=== PATIENT | female | born 1980 | race Caucasian/White ===

== ENCOUNTER 2023-12-04 10:24 | Inpatient (IN) ==
--- NOTE | 2023-12-04 10:47 | Emergency Department Note ---
Impression & Plan Thrombocytopenia ADMIT ED Provider Note HPI: History obtained from patient. The patient is a 43-year-old female who presents the emergency department with chief complaint of abnormal outpatient lab work/thrombocytopenia. Patient states over the past week she has noticed some bruises to her arms and abdomen, she states she has had some bleeding from her gums when she brushes her teeth. Patient had some outpatient lab work performed because of this issue and was noted to have a platelet count of less than 10,000 and therefore was referred to the ED for further management. Patient denies any hematemesis, denies any blood per rectum, denies any other obvious hemorrhage aside from the contusions and bleeding from her gums. On arrival here to the ED the patient is mildly hypertensive but otherwise hemodynamically stable, she is in no acute distress on my initial assessment, she is afebrile, saturating well on room air. ROS: - Per HPI Differential Diagnosis: ITP, TTP, HUS, leukemia, amongst other potential pathologies. *Outpatient medications and allergy history reviewed. PE: General: Alert HEENT: Normocephalic, trachea midline, small ulceration to the posterior pharynx without active bleeding, small ulceration to the left anterior gumline superiorly without active bleeding Eyes: Extraocular eye movement is intact, no scleral erythema Pulmonary: Clear to auscultation bilaterally, no wheezing Cardio: Regular rate and rhythm GI: Abdomen is soft to palpation : No suprapubic tenderness MSK: No evidence of trauma or malformation of the extremities, no edema Skin: Multiple small contusions to the bilateral upper extremities and lower extremities as well as over the abdomen, no petechiae no evidence of rash Neuro: Alert, no focal deficits Psychiatric: Cooperative INDEPENDENT INTERPRETATIONS: bus driver/monitor: (As interpreted by myself): - An order was placed for continuous cardiac monitoring - Patient was noted to be in sinus rhythm with a rate of 90 Interventions provided in ED: -IVIG, IV Decadron Medical Decision Making: IV was established and lab work obtained, patient was placed on traffic monitor specialist. Lab work shows no leukocytosis, hemoglobin is stable at 11.2 (patient states she has a history of mild anemia that happens with her menstrual cycles), platelet count is markedly reduced at 2, lab work otherwise does not show any evidence of acute kidney injury, bilirubin is normal, lipase is normal, testing is negative. Urinalysis shows 2+ blood without evidence of infection. CT imaging of the head was obtained as the patient later complained of a mild headache, this does not show any evidence of any acute intracranial process. Patient denies any abdominal pain, I do not feel that CT imaging of the abdomen pelvis is indicated at this time. I discussed the patient's presentation with the on-call production cell leader, Dr. Mcintosh, who does recommend administration of IV steroids and IVIG over concern for possible ITP. Case was then discussed with the on-call hospitalist for [facility] in [place], Dr. Franklin, and the patient was admitted to the inpatient service for further management. Patient was in agreement to this plan and she was admitted in stable condition. Consultants/Discussions held with other healthcare providers: -Hospitalist, Dr. Franklin -Counterintelligence Analyst, Dr. Mcintosh Disposition discussion held by myself with: -Patient Diagnosis: 1. Thrombocytopenia, acute, severe 2. Body contusions, acute, atraumatic 3. Ulcerations of the oral mucosa in the setting of thrombocytopenia, acute 4. Headache, acute, non-intractable 5. Hematuria, acute, mild Disposition: Admission Chao Gomez DO Emergency Medicine Past Med/Surg History Medical History (Updated 12/04/23 @ 14:59 by Chao Gomez DO) Depression PTSD (post-traumatic stress disorder) Rheumatoid arthritis GERD (gastroesophageal reflux disease) Prediabetes HTN (hypertension) Surgical History (Updated 12/04/23 @ 13:26 by Yessy Rodriguez PA-C) History of loop electrosurgical excision procedure (LEEP) History of hysteroscopy Family History Other Breast cancer Heart disease Social History (Updated 12/04/23 @ 13:27 by Yessy Rodriguez PA-C) Smoking Status: Never smoker Hx Alcohol Use: No Hx Substance Use: No Feels Safe at Home: Yes Allergies Allergies Allergy/AdvReac Type Severity Reaction Status Date / Time No Known Allergies Allergy Unverified 12/04/23 10:48 Home Meds Home Medications Medication Instructions Recorded Confirmed albuterol sulfate 90 mcg/actuation 2 puff inhalation Q4H PRN sob 12/04/23 12/04/23 aerosol inhaler (ProAir HFA) duloxetine 60 mg capsule,delayed 60 mg PO DAILY 12/04/23 12/04/23 release lisinopril 30 mg tablet 30 mg PO DAILY 12/04/23 12/04/23 norethindrone (contraceptive) 0.35 0.35 mg PO DAILY 12/04/23 12/04/23 mg tablet omeprazole 40 mg capsule,delayed 40 mg PO DAILY 12/04/23 12/04/23 release prednisone 5 mg tablet 5 mg PO DAILY 12/04/23 12/04/23 Results & Data (ED) Vital Signs Vital Signs - 24 hr 12/04/23 10:27 12/04/23 12:50 12/04/23 14:31 Temperature 36.6 C Temperature Source Temporal Artery Scan Pulse Rate 90 Pulse Rate [Left Finger] 77 89 Respiratory Rate 20 20 20 Respiratory Effort / Characteristics Non-Labored Respiratory Depth Normal Blood Pressure 185/96 H Blood Pressure [Right Arm] 169/87 H 166/99 H Blood Pressure Mean 125 Blood Pressure Mean [Right Arm] 114 121 Pulse Oximetry 98 98 98 Oxygen Delivery Method Room Air Room Air Sepsis Recent Fever Within 48 Hours No Sepsis New/Unexplained Change in Mental Status No Sepsis Action Taken by Nursing No Action Required Laboratory Data 12/04/23 11:00 12/04/23 11:00 Lab Results 12/04/23 12/04/23 Range/Units 11:00 12:00 WBC 8.71 (4.8-10.8) K/ul RBC 4.11 L (4.20-5.40) M/uL Hgb 11.2 L (12.0-16.0) g/dl Hct 34.9 L (37.0-47.0) % MCV 84.9 (80.0-100.0) fL MCH 27.3 (25.0-34.0) pg MCHC 32.1 (32.0-36.0) g/dL RDW Std Deviation 44.9 (36.4-46.3) fL RDW Coeff of Arnold 14.6 H (11.5-14.5) % Plt Count 2 L* (130-400) K/uL Immature Gran % (Auto) 0.9 % Neut % (Auto) 76.9 % Lymph % (Auto) 17.3 % [place] % (Auto) 3.8 % Eos % (Auto) 0.3 % Baso % (Auto) 0.8 % Neut # (Auto) 6.69 H (1.40-6.50) K/uL Lymph # (Auto) 1.51 (1.20-3.40) K/uL [place] # (Auto) 0.33 (0.11-0.59) K/uL Eos # (Auto) 0.03 (0.00-0.50) K/uL Baso # (Auto) 0.07 (0.00-0.20) K/uL Immature Gran # (Auto) 0.08 (0.01-0.20) K/uL Platelet Estimate Signific. Decreased L (Normal) PT 10.5 (9.0-12.0) Seconds INR 1.0 (0.9-1.1) Sodium 138 (136-145) mmol/L Potassium 3.7 (3.5-5.1) mmol/L Chloride 105 (98-107) mmol/L Carbon Dioxide 26 (21-32) mmol/L Anion Gap 7 (3-11) BUN 13 (6-23) mg/dl Creatinine 0.90 (0.6-1.2) mg/dl Est Cr Clr Drug Dosing 95.2 ml/min Est GFR ( Amer) 91.4 ml/min Est GFR (Non-Af Amer) 78.9 ml/min BUN/Creatinine Ratio 14.4 (10-20) Glucose 134 H (70-99(Fasting)) mg/dl Calcium 9.1 (8.6-10.3) mg/dl Total Bilirubin 0.4 (0.2-1.0) mg/dl AST 20 (13-39) U/L ALT 25 (7-52) U/L Alkaline Phosphatase 96 (34-104) U/L Total Protein 6.9 (6.0-8.3) gm/dl Albumin 4.2 (3.4-5.0) gm/dl Globulin 2.7 (2.5-4.0) gm/dl Albumin/Globulin Ratio 1.6 (0.9-2) Lipase 69 (11-82) U/L HCG, Qual Negative (Negative) Urine Color Yellow Urine Appearance Clear (Clear) Urine pH 7.0 (4.5-7.5) Ur Specific [place] 1.007 (1.000-1.030) Urine Protein Negative (Negative) Urine Glucose (UA) Negative (Negative) Urine Ketones Negative (Negative) Urine Blood 2+ H (Negative) Urine Nitrite Negative (Negative) Urine Bilirubin Negative (Negative) Urine Urobilinogen Negative (Negative) Ur Leukocyte Esterase Negative (Negative) Urine WBC (Auto) 0-5 (0-5) /hpf Urine RBC (Auto) 6-10 H (0-2) /hpf U Hyaline Cast (Auto) 0-2 (0-2) /lpf U Epithel Cells (Auto) 0-2 (0-2) /hpf Urine Bacteria (Auto) None Seen (None Seen) Administered Medications Immune Globulin (Octagam 10%) 200 mls @ 61.86 mls/hr IV TODAY@1400,1600,1800,2000,2200 TREVOR; Protocol Stop: 12/05/23 01:14 Last Admin: 12/04/23 14:00 Dose: 1 mg/kg/min, 61.9 mls/hr Documented By: GERARDO Discontinued Medications Acetaminophen (Acetaminophen 325 Mg Tab) 650 mg PO NOW STA Stop: 12/04/23 12:58 Last Admin: 12/04/23 13:14 Dose: 650 mg Documented By: GERARDO Dexamethasone Sodium Phosphate (DexamethasonePf 10 Mg/Ml Vial) 40 mg IV NOW ONE Stop: 12/04/23 12:11 Last Admin: 12/04/23 12:53 Dose: 40 mg Documented By: GERARDO Sodium Chloride (Nss) 500 mls @ 999 mls/hr IV .Q31M STA Stop: 12/04/23 11:07 Last Admin: 12/04/23 10:57 Dose: 999 mls/hr Documented By: GERARDO Imaging Data Radiologist's Impression: Head CT 12/04/23 12:[address] DOSE: 547.75 mGy.cm HISTORY: Headache, severe thrombocytopenia TECHNIQUE: Multiaxial CT images of the head were performed without the use of intravenous contrast. Automated exposure control was utilized for this study. A dose lowering technique was utilized adhering to the principles of ALARA. Comparison: None. Findings: The paranasal sinuses and mastoid air cells are clear. The calvarium and skull base are intact. The ventricles and sulci are within normal limits. There is no mass, hematoma, midline shift, or acute infarct. Impression: No acute intracranial abnormality. ACT 112: Negative or not required by law. Electronically signed by: Sherif Ge M.D. 12/04/2023 1:52 PM Discharge Plan Visit Data Chief Complaint: Referred by Doctor Stated Complaint: REF BY DOC, ABN LABS ED Provider: Chao Gomez Discharge Problem: Thrombocytopenia Forms Stand Alone Forms: My [facility] Prescriptions Prescriptions: No Action prednisone 5 mg Tablet 5 mg PO DAILY Rx Instructions: end of taper, 1 wk of 5 mg omeprazole 40 mg Capsule,Delayed Release(Dr/Ec) 40 mg PO DAILY lisinopril 30 mg Tablet 30 mg PO DAILY albuterol sulfate [ProAir HFA] 90 mcg/actuation Hfa Aerosol Inhaler 2 puff INHALATION Q4H PRN (Reason: sob) norethindrone (contraceptive) [Ortho Micronor] 0.35 mg Tablet 0.35 mg PO DAILY duloxetine 60 mg Capsule,Delayed Release(Dr/Ec) 60 mg PO DAILY Referrals Referrals: PCP,NO [Physician] -
[2023-12-04] MEDS: SODIUM CHLORIDE 0.9% 500 ML IV STA (10:57)
[2023-12-04 11:30] LABS: Albumin Globulin Ratio 1.6 (0.9-2); Albumin Level 4.2 gm/dl (3.4-5.0); BUN Creatinine Ratio 14.4 (10-20); Bilirubin,Total 0.4 mg/dl (0.2-1.0); Calcium 9.1 mg/dl (8.6-10.3); Creatinine Clr Calc Pharmacy 95.2 ml/min; Est GFR (African American) 91.4 ml/min; Est GFR (Non-African American) 78.9 ml/min; Globulin 2.7 gm/dl (2.5-4.0); Potassium 3.7 mmol/L (3.5-5.1); Total Protein 6.9 gm/dl (6.0-8.3)
[2023-12-04 11:37] LABS: Prothrombin Time 10.5 Seconds (9.0-12.0)
[2023-12-04 12:08] LABS: Hematocrit (blood only) 34.9 % (37.0-47.0); Hemoglobin 11.2 g/dl (12.0-16.0); Mean Corpuscular Hemoglobin 27.3 pg (25.0-34.0); Mean Corpuscular Hgb Conc 32.1 g/dL (32.0-36.0); Mean Corpuscular Volume 84.9 fL (80.0-100.0); Platelet Count 2 K/uL (130-400); RDW Coefficient of Variation 14.6 % (11.5-14.5); RDW Standard Deviation 44.9 fL (36.4-46.3); Red Blood Count 4.11 M/uL (4.20-5.40); White Blood Count 8.71 K/ul (4.8-10.8)
[2023-12-04 12:09] LABS: Basophils # (auto) 0.07 K/uL (0.00-0.20); Basophils % (auto) 0.8 %; Eosinophils # (auto) 0.03 K/uL (0.00-0.50); Eosinophils % (auto) 0.3 %; Immature Granulocytes # (auto) 0.08 K/uL (0.01-0.20); Immature Granulocytes % (auto) 0.9 %; Lymphocytes # (auto) 1.51 K/uL (1.20-3.40); Lymphocytes % (auto) 17.3 %; Monocytes # (auto) 0.33 K/uL (0.11-0.59); Monocytes % (auto) 3.8 %; Neutrophils # (auto) 6.69 K/uL (1.40-6.50); Neutrophils % (auto) 76.9 %; Platelet Estimate Signific. Decreased (Normal)
[2023-12-04] MEDS ORDERED: IMMUNE GLOBULIN (HUMAN) SOLN IV ONE (12:10)
[2023-12-04 12:11] LABS: Pregnancy Test, Serum Negative (Negative)
[2023-12-04 12:35] LABS: Appearance Urine Clear (Clear); Bacteria Urine Automated None Seen (None Seen); Bilirubin Urine Negative (Negative); Blood Urine 2+ (Negative); Cast Urine Automated 0-2 /lpf (0-2); Color Urine Yellow; Epithelial Cell Urine Auto 0-2 /hpf (0-2); Glucose Urine UA Negative (Negative); Ketones Urine Negative (Negative); Leukocyte Esterase Urine Negative (Negative); Nitrite Urine Negative (Negative); Protein Urine Negative (Negative); Specific Gravity Urine 1.007 (1.000-1.030); Urobilinogen Urine Negative (Negative); WBC Urine Automated 0-5 /hpf (0-5)
[2023-12-04] MEDS: dexAMETHasone**PF** 10 MG/ML VIAL IV ONE (12:53)
[2023-12-04] MEDS: ACETAMINOPHEN 325 MG TAB PO STA (13:14)
--- NOTE | 2023-12-04 13:27 | History & Physical Report ---
Date of Service December 04, 2023 Assessment & Plan (1) Severe thrombocytopenia: Plan: This is a 43yo F with a PMH of Rheumatoid arthritis, HTN, depression and other medical problems listed below and was found to have severe thrombocytopenia. Spontaneous bruising x 1 week without trauma Outpatient labs today that was significant for Hgb 11.5 (previously 12.5 in Sep 2023), platelets <10 (previously 311 on 09/20/23), absolute retic count elevated at 107, retic % elevated at 2.53 CBC here with hgb 11.2, hct 34.9, platelet count of 2 Denies any history of bleeding or clotting issues, concern for ITP given autoimmune history with RA as below ED provider discussed with heme/onc, who recommended Dexamethasone, Immunoglobulin x 5 doses today, okay to care for at [facility] Fall precautions. Discussed importance of safety with patient given bleeding risk Monitor blood work closely (2) Rheumatoid arthritis: Plan: Follows with [facility] rheum, has been on monthlong taper of prednisone down to the last few days at 5mg - hold while receiving IV dexamethasone as above Due to start Rinvoq but has not yet received (3) HTN (hypertension): Plan: BP elevated in ED - most recent 153/90. Continue to monitor closely, add PRN agent as needed Took lisinopril 30mg at home this AM, consider increasing dose or adding agent while admitted if BP remains persistently elevated (4) Depression: (5) PTSD (post-traumatic stress disorder): Plan: Currently on Duloxetine 60mg with plans to increase to 90mg soon per PCP - defer to PCP follow up upon discharge DVT Ppx: contraindicated given platelet count of 2 Code status: FULL PCP: Vish Dispo: Admit to PCU Patient seen in collaboration with Dr. Franklin. Please see addendum. I spent a total of 75 minutes coordinating, documenting, and providing care for this patient excluding time spent in the performance of separately billed services. History of Present Illness Chief Complaint: bruising Primary Care Provider: Dayday Wahl MD This is a 43yo F with a PMH of HTN, RA, depression, PTSD, prediabetes, adenoma of liver and other medical problems listed below who was directed to ED by outpatient provider after significant lab abnormalities found this morning. Saw PCP today due to spontaneous bruising x 1 week without trauma. Notes that things that would have previously caused a red ana rosa for a few minutes only are causing a bruise over this past week. Feels very tired. Also notes that her last period was very heavy with her needing to change a maxi pad every 2 hours. Was having gum bleeding this morning when brushed her teeth. Underwent labwork today that was significant for Hgb 11.5 (previously 12.5 in Sep 2023), platelets <10 (previously 311 on 09/20/23), absolute retic count elevated at 107, retic % elevated at 2.53. Denies any history of bleeding or clotting issues personally but grandmother has history of blood clots, is on a blood thinner. No recent illness. No F/C, lightheadedness, CP, SOB, N/V, abd pain, dysuria, diarrhea or constipation. Allergies Allergy/AdvReac Type Severity Reaction Status Date / Time No Known Allergies Allergy Unverified 12/04/23 10:48 Home Medications Medication Instructions Recorded Confirmed Type albuterol sulfate 90 mcg/actuation 2 puff inhalation Q4H PRN sob 12/04/23 12/04/23 History aerosol inhaler (ProAir HFA) duloxetine 60 mg capsule,delayed 60 mg PO DAILY 12/04/23 12/04/23 History release lisinopril 30 mg tablet 30 mg PO DAILY 12/04/23 12/04/23 History norethindrone (contraceptive) 0.35 0.35 mg PO DAILY 12/04/23 12/04/23 History mg tablet omeprazole 40 mg capsule,delayed 40 mg PO DAILY 12/04/23 12/04/23 History release prednisone 5 mg tablet 5 mg PO DAILY 12/04/23 12/04/23 History Past Med/Surg History Medical History Depression PTSD (post-traumatic stress disorder) Rheumatoid arthritis GERD (gastroesophageal reflux disease) Prediabetes HTN (hypertension) Surgical History History of loop electrosurgical excision procedure (LEEP) History of hysteroscopy Family History Other Breast cancer Heart disease Social History Smoking Status: Former smoker Hx Alcohol Use: No Hx Substance Use: No Ciaio Lumite Injector Required: No Beliefs That Will Affect Care: None Current Living Situation: Spouse Feels Safe at Home: Yes Review of Systems Review of Systems: At least ten systems reviewed and negative except as noted in the HPI. Physical Exam Physical Exam: General Appearance: WD/WN, vitals as above, NAD, sitting up in bed, pleasant, conversing easily Head: normocephalic, atraumatic Eyes: normal inspection, PERRL, conjunctivae normal, anicteric sclerae ENT: external ear and nose normal, oropharynx normal, + no bleeding noted Neck: normal visual inspection, trachea midline, no thyromegaly Respiratory: normal respiratory effort, lungs clear to auscultation, no wheeze, rales, rhonchi. No accessory muscle use Cardiovascular: regular rate, rhythm, no murmur, normal peripheral pulses, no BLE edema. Vessels: no JVD Chest: normal inspection of chest Abdomen/GI: normal bowel sounds, soft, nontender, no hepatosplenomegaly Extremities/Musculoskeletal: no cyanosis or clubbing, extremities motor strength 5/5 Neurologic: PERRL, EOMI, accommodation nl, no face palsy, no dysarthria, CN's II-XI intact bilaterally and moves all extremities Psychiatric: A+Ox3, euthymic affect Skin: no rashes, normal color, warm/dry + scattered ecchymosis noted under R eye, BUE, BE and abdomen Results & Data Results & Data Vital Signs (Past 12 Hours) Vital Signs Temp Pulse Pulse Resp BP BP Pulse Ox 12/04/23 12:50 77 20 169/87 H 98 12/04/23 10:27 36.6 C 90 20 185/96 H 98 O2 Del Method 12/04/23 12:50 Room Air 12/04/23 10:27 Room Air Laboratory Results Short CBC 12/04/23 Range/Units 11:00 WBC 8.71 (4.8-10.8) K/ul Hgb 11.2 L (12.0-16.0) g/dl Hct 34.9 L (37.0-47.0) % Plt Count 2 L* (130-400) K/uL BMP 12/04/23 11:00 Sodium 138 Potassium 3.7 Chloride 105 Carbon Dioxide 26 BUN 13 Creatinine 0.90 Glucose 134 H Calcium 9.1 Liver Function 12/04/23 Range/Units 11:00 Total Bilirubin 0.4 (0.2-1.0) mg/dl AST 20 (13-39) U/L ALT 25 (7-52) U/L Alkaline Phosphatase 96 (34-104) U/L Albumin 4.2 (3.4-5.0) gm/dl Urine 12/04/23 Range/Units 12:00 Urine Color Yellow Urine Appearance Clear (Clear) Urine pH 7.0 (4.5-7.5) Ur Specific [place] 1.007 (1.000-1.030) Urine Protein Negative (Negative) Urine Glucose (UA) Negative (Negative) Diagnostic Findings Head CT 12/04/23 12:[address] DOSE: 547.75 mGy.cm HISTORY: Headache, severe thrombocytopenia TECHNIQUE: Multiaxial CT images of the head were performed without the use of intravenous contrast. Automated exposure control was utilized for this study. A dose lowering technique was utilized adhering to the principles of ALARA. Comparison: None. Findings: The paranasal sinuses and mastoid air cells are clear. The calvarium and skull base are intact. The ventricles and sulci are within normal limits. There is no mass, hematoma, midline shift, or acute infarct. Impression: No acute intracranial abnormality. ACT 112: Negative or not required by law. Electronically signed by: Sherif Ge M.D. 12/04/2023 1:52 PM Supervising Physician Co-Signing Physician Notes I have seen and discussed the case with the collaborating advanced practitioner. I agree with the above H&P. I have reviewed and confirmed the patients medical history, the findings on physical examination, and the patients diagnosis and treatment plan with Michael HUANG and agree with the information documented. In short, Ms. Howard is a 43 year old woman with history of RA, HTN, GERD, recent issues with easy brusing who presented due to abnormal labs from OP. Labs revealed thrombocyotpenia. Patient reports heavier than usual menses, easy bruising, gingival bleeding. Labs on admission revealed platelets of 2. Patient given Dex and IVIG, heme consulted. Admitted for management of ITP. CT head revealed, no bleed. GENERAL APPEARANCE: AxOx4, generally well-appearing female, no acute distress. HEENT: NC, AT. MMM. EOMI, clear conjunctiva, oropharynx clear. NECK: Supple without lymphadenopathy. No stiffness or restricted ROM. HEART: Normal rate and regular rhythm, normal S1/S1, no m/r/g LUNGS: CTAB, moving air well. No crackles or wheezes are heard. ABDOMEN: Soft, nontender, nondistended with good bowel sounds heard.. EXTREMITIES: Without cyanosis, clubbing or edema. NEUROLOGICAL: Grossly nonfocal. Alert and oriented, moving all 4 extremities. CN not formally tested but appear grossly intact. Observed to ambulate with normal gait. Skin: Warm and dry without any rash. ecchymosis on right eye, scatter bruising of abdomen and lower extremities. #Severe thrombocytopenia #Chronic anemia Concern for ITP Heme/ONc consulted, plan for IVIG and Dex x 5 days Fall precautions anemia work up Rest of plan as above I spent a total of 35 minutes coordinating, documenting, and providing care for this patient excluding time spent in the performance of separately billed services. All of the aforementioned completed outside of collaborating with the assigned advanced practitioner for a full treatment plan. I have reviewed the advanced practitioner's documentation, and I agree with, and take responsibility for the plan of care
--- NOTE | 2023-12-04 13:54 | CT Scan Report ---
HEAD CT NONCONTRAST CT DOSE: 547.75 mGy.cm HISTORY: Headache, severe thrombocytopenia TECHNIQUE: Multiaxial CT images of the head were performed without the use of intravenous contrast. A utomated exposure control was utilized for this study. A dose lowering technique was utilized adheri ng to the principles of ALARA. Comparison: None. Findings: The paranasal sinuses and mastoid air cells are clear. The calvarium and skull base are int act. The ventricles and sulci are within normal limits. There is no mass, hematoma, midline shift, or acute infarct. Impression: No acute intracranial abnormality. ACT 112: Negative or not required by law. Electronically signed by: Sherif Ge M.D. 12/04/2023 1:52 PM
[2023-12-04] MEDS: Octagam 10% IVIG 20 gram bottle IV SCH (14:00)
[2023-12-04] MEDS ORDERED: ONDANSETRON INJ 2 MG/ML 2 ML VIAL IV PRN (16:23)
[2023-12-04] MEDS ORDERED: POLYETHYLENE (MIRALAX) 17 GM PACK PO PRN (16:23)
[2023-12-04] MEDS ORDERED: ALBUTEROL HFA 8 GM INHALER INH PRN (16:23)
[2023-12-05 04:45] LABS: Basophils # (auto) 0.02 K/uL (0.00-0.20); Basophils % (auto) 0.2 %; Hemoglobin 10.3 g/dl (12.0-16.0); Immature Granulocytes # (auto) 0.15 K/uL (0.01-0.20); Immature Granulocytes % (auto) 1.5 %; Lymphocytes # (auto) 0.63 K/uL (1.20-3.40); Lymphocytes % (auto) 6.2 %; Mean Corpuscular Hemoglobin 27.1 pg (25.0-34.0); Mean Corpuscular Hgb Conc 32.2 g/dL (32.0-36.0); Mean Corpuscular Volume 84.2 fL (80.0-100.0); Mean Platelet Volume 11.3 fL (9.4-12.4); Monocytes # (auto) 0.22 K/uL (0.11-0.59); Monocytes % (auto) 2.2 %; Neutrophils # (auto) 9.14 K/uL (1.40-6.50); Neutrophils % (auto) 89.9 %; Platelet Count 45 K/uL (130-400); RDW Coefficient of Variation 14.1 % (11.5-14.5); RDW Standard Deviation 43.5 fL (36.4-46.3); White Blood Count 10.16 K/ul (4.8-10.8)
[2023-12-05 05:01] LABS: Albumin Globulin Ratio 0.7 (0.9-2); Albumin Level 3.5 gm/dl (3.4-5.0); BUN Creatinine Ratio 15.2 (10-20); Bilirubin,Total 0.3 mg/dl (0.2-1.0); Calcium 8.8 mg/dl (8.6-10.3); Creatinine Clr Calc Pharmacy 108.5 ml/min; Est GFR (Non-African American) 92.3 ml/min; Globulin 4.7 gm/dl (2.5-4.0); Potassium 3.8 mmol/L (3.5-5.1); Total Protein 8.2 gm/dl (6.0-8.3)
[2023-12-05 05:20] LABS: Ferritin 63.9 ng/ml (8-388)
[2023-12-05 05:44] LABS: Folate (Folic Acid),Ser orPlas 14.38 ng/ml (>5.38)
[2023-12-05] MEDS: lisinopril 20 MG TAB PO SCH (08:34)
[2023-12-05] MEDS: DULoxetine HCL 60 MG CAP PO SCH (08:34)
[2023-12-05] MEDS: dexAMETHasone 40 MG in DEXTROSE 5% 25 ML IV SCH (08:35)
[2023-12-05] MEDS: PANTOprazole 40 MG TAB PO SCH (08:35)
[2023-12-05] MEDS ORDERED: DEXAMETHASONE SOD INJ 4 MG/ML VIAL IV SCH (09:00)
--- OUTSIDE RECORDS SUMMARY | 2023-12-05 10:37 | External Medical Summary | Summary of Care ---
Author Name Unknown Organization [facility] Address [address] [place] [address] Phone [phone] Care Team Providers Care Director Of Elementary Education Name Role Phone Dayday Wahl MD Primary Care Provider [phone] Reason for Visit * Reason Comments Bruising Encounter Details Date Type Department Care Team (Late st Contact Info) Description 12/04/2023 8:00 AM EDT Office Visit Family Practice [facility] [address] [place] [address] Marcin Ramos CRNP [address] [place] [address] Bruising*; Adenoma of liver; Body mass index (BMI) of 40.0 to 44.9 in adult (HCC); Depression with anxiety; HTN, goal below 130/80; Prediabetes Allergies No known active allergiesdocumented as of this encounter (statuses as of 12/04/2023) Medications Medication Sig Dispensed Refills Start Date End Date Status Lisinopril 30 MG Oral Tablet Take 1 Tablet by mouth in the morning. 90 Tablet 3 03/01/2023 Active ProAir HFA 108 (90 Base) MCG/ACT Inhalation Aerosol Solution Inhale 2 Puffs by mouth every 4 hours as needed for Wheezing. 18 g 3 03/28/2023 Active Norethindrone 0.35 MG Oral TabletIndications:E ncounter for initial prescription of contraceptive pills Take 1 Tablet by mouth in the morning. 90 Tablet 3 04/03/2023 Active Omeprazole 40 MG Oral Capsule Delayed Release (PriLOSEC) TAKE 1 CAPSULE BY MOUTH DAILY 1 HOUR BEFORE THE FIRST MEAL OF THE DAY 90 Capsule 3 04/15/2023 Active Ibuprofen 600 MG Oral Tablet (Motrin) Take 1 Tablet by mouth in the morning and 1 Tablet at noon and 1 Tablet before bedtime. With meals.. 30 Tablet 0 07/18/2023 Active Additional Information Patient taking differently:600 mg Oral Q8H,With meals. As needed, Reported on 12/04/2023 predniSONE 5 MG Oral Tablet (Deltasone) Take 4 Tablets by mouth daily for 10 days, THEN 3 Tablets daily for 10 days, THEN 2 Tablets daily for 10 days, THEN 1 Tablet daily for 10 days. 100 Tablet 0 11/08/2023 12/18/2023 Active Rinvoq 15 MG Oral Tablet Extended Release 24 Hour (Upadacitinib ER) Take 1 Tablet by mouth daily. 30 Tablet 2 11/14/2023 Active Additional Information Patient not taking.Reported on 12/04/2023 DULoxetine HCl 60 MG Oral Capsule Delayed Release Particles (Cymbalta) Take 1 Capsule by mouth in the morning. 30 Capsule 0 11/21/2023 Active DULoxetine HCl 30 MG Oral Capsule Delayed Release Particles (Cymbalta) Take 1 Capsule by mouth every afternoon. 30 Capsule 0 11/21/2023 Active documented as of this encounter (statuses as of 12/04/2023) Active Problems Problem Noted Date Diagnosed Date Body mass index (BMI) of 40.0 to 44.9 in adult 0 11/25/2023 Overview: Per Obesity protocol PTSD (post-traumatic stress disorder) 01/29/2023 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---have spontaneously bled -avoid estrogen containing OCP Prediabetes 10/29/2022 Overview: Per Prediabetes protocol Rheumatoid arthritis of [facility] sites without rheumatoid factor 10/10/2022 Depression with anxiety 09/24/2022 HTN, goal below 130/80 08/15/2021 Obesity, Class II, BMI 35-39.9, isolated (see ac tual BMI) 08/14/2021 Gastroesophageal reflux disease with esophagitis 03/21/2020 documented as of this encounter (statuses as of 12/04/2023) Resolved Problems Problem Noted Date Diagnosed Date Resolved Date Seronegative polyarthritis 08/09/2020 0 01/28/2023 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 Rheumatoid arthritis involvi ng multiple sites with positive rheumatoid factor 03/18/2020 08/09/20 20 documented as of this encounter (statuses as of 12/04/2023) Immunizations Name Administration Dates Next Due COVID-19 mRNA, LNP-s, No Pre serve, 2-Dose Series (Moderna) 10/05/2020,09/07/2020 Hepatitis B, 20+ yrs 11/14/2020,06/18/2020,05/16 Seasonal Influenza, PF, 6 M & above, IM , (FluLaval or Fluzone) 05/16/2020 TDAP (age 10 and older)(Boostrix) 03/27/2021 documented as of this encounter Social History Tobacco Use Types Packs/Day Years Used Date Smoking Tobacco: Former Cigarettes Q uit: 09/17/2002 Smokeless Tobacco: Never Tobacco Cessation:Counseling Given: Not Answered Alcohol Use Standard Drinks/Week Comments Yes 0 (1 standard drink = 0.6 oz pur e alcohol) rarely PHQ-2 Answer Date Recorded PHQ Adult Total Score 5 12/05/2021 Hunger Vital Sign Answer Date Recorded Within the past 12 months, y ou worried that your food would run out before you got the money to buy more. Never true 01/25/20 23 Within the past 12 months, t he food you bought just didn't last and you didn't have money to get more. Never true 01/24/2023 Sex and Gender Information Value Date Recorded Sex Assigned at Female 11/29/2021 5:32 PM EDT Gender Identity Female 11/29/2021 5:32 PM EDT Sexual Orientation Straight 11/29/2021 5: 32 PM EDT Job Start Date Occupation Industry Not on file Not on file Not on file documented as of this encounter Last Filed Vital Signs Vital Sign Reading Time Taken Comments Blood Pressure 142/88 12/04/2023 7:58 AM EDT Pulse 76 12/04/2023 7:58 AM EDT Temperature 36.1 C (97 F) 12/04/2023 7:58 AM EDT Respiratory Rate 16 12/04/2023 7:58 AM EDT Oxygen Saturation - - Inhaled Oxygen Concentration - - Weight 102.7 kg (226 lb 8 oz) 12/04/2023 7:58 AM EDT Height - - Body Mass Index 40.44 11/21/2023 9:58 AM EDT documented in this encounter Progress Notes * Marcin Ramos CRNP - 12/04/2023 8:04 AM EDT Images from the original note were not included. Follow up Family Medicine Visit History of Present Illness Mary Kate Howard is a very pleasant 43 year old female with PMH significant for adenoma of liver, GERD, HTN, prediabetes and others listed below presenting with multiple spontaneous bruises x 1 months. Brusing all over without trauma - arms, legs, and face Denies headache, chest pain, SOB, nosebleed, n/v, blood is stool/urine or black tarry stool No new medication or supplement Known to have easy bruise but worse past 1 month Just had her period, and it was very heavy, changing maxi pad every 2 hours. Was having gum bleeding this morning when brushed her teeth. Grandmother is prone to have blood clots Social History Socioeconomic History Marital status: Spouse name: Not on file Number of children: Not on file Years of education: Not on file Highest education level: Not on file Occupational History Not on file Tobacco Use Smoking status: Former Current packs/day: 0.00 Types: Cigarettes Quit date: 09/17/2002 Years since quittin.2 Smokeless tobacco: Never Vaping Use Vaping Use: Never used Substance and Sexual Activity Alcohol use: Yes Comment: rarely Drug use: Never Sexual activity: Yes Partners: Male control/protection: Pill Other Topics Concern Not on file Social History Narrative Not on file Social Determinants of Health Financial Resource Strain: Not on file Food Insecurity: No Food Insecurity (01/24/2023) Hunger Vital Sign Worried About Running Out of Food in the Last Year: Never true Ran Out of Food in the Last Year: Never true Transportation Needs: Not on file Physical Activity: Not on file Stress: Not on file Social Connections: Not on file Intimate Partner Violence: Not on file Housing Stability: Not on file PMH: Past Medical History: Diagnosis Date 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 Multiple---have spontaneously bled -avoid estrogen containing OCP Depression with anxiety 09/24/2022 Gastroesophageal reflux disease with esophagitis 03/21/2020 HTN, goal below 130/80 08/15/2021 PTSD (post-traumatic stress disorder) 01/29/2023 Rheumatoid arthritis involving multiple sites with positive rheumatoid factor (HCC) 03/18/2020 Seronegative polyarthritis 08/09/2020 Past Surgical History: Procedure Laterality Date HYSTEROSCOPY W/BIOPSY AND/OR POLYPECTOMY W/WO D&C Bilateral 07/18/2023 HYSTEROSCOPY WITH BIOPSY AND/OR POLYPECTOMY WITH OR WITHOUT D&C performed by Peewee Mas MD at OR [facility] IR EMBOLIZATION ARTERIAL NON HEMMORHAGE Left 04/18/2023 EMBOLIZATION ARTERIAL; SUPERVISION & INTERPRETATION performed by Chao King DO at OR [facility] PELVIC EXAM UNDER ANESTHESIA, NOT LOCAL 07/18/2023 PELVIC EXAMINATION UNDER ANESTHESIA performed by Peewee Mas MD at OR [facility] REMOVE CERVIX CONE W/LOOP ELECTRODE Bilateral 07/11/2022 LOOP ELECTROSURGERY EXCISION PROCEDURE performed by Peewee Mas MD at OR [facility] Outpatient Medications Marked as Taking for the 12/04/23 encounter (Office Visit) with Marcin Ramos CRNP Medication Sig DULoxetine HCl 30 MG Oral Capsule Delayed Release Particles (Cymbalta) Take 1 Capsule by mouth every afternoon. DULoxetine HCl 60 MG Oral Capsule Delayed Release Particles (Cymbalta) Take 1 Capsule by mouth in the morning. predniSONE 5 MG Oral Tablet (Deltasone) Take 4 Tablets by mouth daily for 10 days, THEN 3 Tablets daily for 10 days, THEN 2 Tablets daily for 10 days, THEN 1 Tablet daily for 10 days. Ibuprofen 600 MG Oral Tablet (Motrin) Take 1 Tablet by mouth in the morning and 1 Tablet at noon and 1 Tablet before bedtime. With meals.. (Patient taking differently: Take 1 Tablet by mouth in the morning and 1 Tablet at noon and 1 Tablet before bedtime. With meals. As needed.) Omeprazole 40 MG Oral Capsule Delayed Release (PriLOSEC) TAKE 1 CAPSULE BY MOUTH DAILY 1 HOUR BEFORE THE FIRST MEAL OF THE DAY Norethindrone 0.35 MG Oral Tablet Take 1 Tablet by mouth in the morning. ProAir HFA 108 (90 Base) MCG/ACT Inhalation Aerosol Solution Inhale 2 Puffs by mouth every 4 hours as needed for Wheezing. Lisinopril 30 MG Oral Tablet Take 1 Tablet by mouth in the morning. Review of patient's allergies indicates: No Known Allergies Most Recent Immunizations Administered Date(s) Administered COVID-19 mRNA, LNP-s, No Preserve, 2-Dose Series (Moderna) 10/05/2020 Hepatitis B, 20+ yrs 11/14/2020 Seasonal Influenza, PF, 6 M & above, IM , (FluLaval or Fluzone) 05/16/2020 TDAP (age 10 and older)(Boostrix) 03/27/2021 Review of Systems: Physical Exam BP 142/88 (BP Site: Left Arm, BP Position: Sitting, BP Cuff Size: Large) | Pulse 76 | Temp 36.1 C(97 F) (Tympanic) | Resp 16 | Wt 102.7 kg (226 lb 8 oz) | BMI 40.44 kg/m | BSA 2.13 m Physical Exam Constitutional: Appearance: Normal appearance. HENT: Head: Normocephalic. Cardiovascular: Rate and Rhythm: Normal rate and regular rhythm. Pulmonary: Effort: Pulmonary effort is normal. Breath sounds: Normal breath sounds. Musculoskeletal: Cervical back: Neck supple. Skin: General: Skin is warm. Comments: Scattered ecchymosis Neurological: Mental Status: She is alert and oriented to person, place, and time. Psychiatric: Mood and Affect: Mood normal. Assessment and Plan 1. Bruising PLT <10 critical lab value called Nursing called pt -- will go [facility] Will fax over lab report and note - CBC WITH WBC DIFFERENTIAL AND ANEMIA REFLEX WORKUP; Future - PT INR; Future - COMPREHENSIVE METABOLIC PANEL; Future 2. Adenoma of liver 3. Body mass index (BMI) of 40.0 to 44.9 in adult (HCC) 4. Depression with anxiety On cymbalta 5. HTN, goal below 130/80 Lisinopril 6. Prediabetes Wrap-Up I have advised the patient to call our office with any worsening or new symptoms. I spent a total of 40-54 minutes (exact time 40 mins) on the date of service in preparation, delivery, and documentation of the care provided to Mary Kate Howard excluding any time spent in the performance of separately billed services. Marcin Ramos, MSN, SHOW HOST/HOSTESS [facility] documented in this encounter Nursing Notes * Orlin Aggarwal, RN - 12/04/2023 8:00 AM EDT Chief Complaint Patient presents with Bruising documented in this encounter Plan of Treatment Upcoming Encounters Date Type Department Care Team (Late st Contact Info) Description 12/09/2023 10:30 AM EDT Telemedicine Rheumatology, [place] [address] [place] [address] Agc5, Pharmacist Rheumatology [address] [place] [address] 02/14/2024 10:00 AM EDT Office Visit Rheumatology [address] [place] [phone] [place] CRNP [address] [facility] [place] [address] 05/04/2024 1:00 PM EDT Office Visit Gynecology/Obstetrics [facility] [address] [facility] [place] [address] Jaleesa Hess PA-C [address] [facility] [place] [address] Pending Results Name Type Priority Associated Diagnoses Date /Time CBC WITH WBC DIFFERENTIAL AND ANEMIA REFLEX WORKUP Lab Routine Bruising 12/04/2023 8:26 AM EDT Scheduled Orders Name Type Priority Associated Diagnoses Orde r Schedule CBC WITH WBC DIFFERENTIAL AND ANEMIA REFLEX WORKUP Lab Routine Bruising Expected: 12/04/2023 (Approximate), Expires: 12/03/2024 Health Maintenance Due Date Last Done Comments Pneumococcal Vaccine: Pediatrics (0 to 5 Years) and At-Risk Patients (6 to 64 Years) (1 of 2 - PCV) 1987 HIV Screening 1996 Albumin/Creatinine Ratio 1999 COVID-19 Vaccine (3 - Moderna risk series) 11/02/2020 10/05/2020, 09/07/2020 HbA1c 10/26/2023 10/25/2022 Mammogram 06/18/2024 06/18/2023, 05/19, 12/19/2021 GFR 12/03/2024 12/04/2023, 08/2022, 03/22/2023, Additional history exists Pap Smear 04/03/2026 04/03/2023, 11/18, 08/29/2016 Lipid Panel 10/26/2027 10/25/2022 Cervical Cancer Screening 04/03/2028 HPV/Co-Test 04/03/2028 04/03/2023 DTaP,Tdap,and Td Vaccines (2 - Td or Tdap) 03/27/2031 03/27/2021 Hepatitis B Completed 11/14/2020, 05/21, 05/16/2020 Influenza Vaccine (FLU shot) Completed 06/2023, 08/03/2022, 05/16/2020, Additional history exists GARDASIL-HPV IMMUNIZATION SERIES Aged Out No longer eligible based on patient's age to complete this topic MENINGOCOCCAL (MENACTRA/MENVEO) Aged Out No longer eligible based on patient's age to complete this topic documented as of this encounter Medical Devices Implanted Type Area Correctional Officer Chief Device Identifier Shelf Expiration Date Model / Serial / Lot Syr Pf 2ml Embospheres 100-300 - [id number] Implanted:Qty: 1 on 04/18/2023 by Chao King DO at OR [facility] N/A: Chest [employer] 10/14/2025 S220GH / / [id number] Syr Pf 2ml Embospheres 100-300 - [id number] Implanted:Qty: 1 on 04/18/2023 by Chao King DO at OR [facility] [employer] [id number] 10/14/2025 S220GH / / [id number] documented as of this encounter Results * COMPREHENSIVE METABOLIC PANEL (12/04/2023 8:26 AM EDT) BUN 13 6 - 20 mg/dL 12/04/2023 10:03 AM EDT [facility] 57-10 Creatinine 0.9 0.5 - 1.0 mg/dL 12/04/2023 10:03 AM EDT [facility] 57-10 Estimated Glomerular Filtration Rate 80 >=60 mL/min 12/04/2023 10:03 AM EDT [facility] 57-10 Comment:eGFR is calculated b ased on the CKD-EPI 2020 equation Sodium 141 135 - 146 mmol/L 12/04/2023 10:03 AM EDT [facility] 57-10 Potassium 3.8 3.5 - 5.1 mmol/L 12/04/2023 10:03 AM EDT [facility] 57-10 Chloride 102 98 - 107 mmol/L 12/04/2023 10:03 AM EDT [facility] 57-10 CO2 29 22 - 32 mmol/L 12/04/2023 10:03 AM EDT [facility] 57-10 Anion Gap 10 7 - 15 mmol/L 12/04/2023 10:03 AM EDT [facility] 57-10 Glucose 109 70 - 120 mg/dL 12/04/2023 10:03 AM EDT [facility] 57-10 Albumin 4.3 3.8 - 5.0 g/dL 12/04/2023 10:03 AM EDT [facility] 57-10 AST 24 10 - 35 U/L 12/04/2023 10:03 AM EDT [facility] 57-10 Alkaline Phosphatase 120 35 - 130 U/L 12/04/2023 10:03 AM EDT [facility] 57-10 Bilirubin, Total 0.3 <=1.2 mg/dL 12/04/2023 10:03 AM EDT [facility] 57-10 Calcium 8.9 8.4 - 10.2 mg/dL 12/04/2023 10:03 AM EDT [facility] 57-10 Protein 7.0 6.0 - 8.3 g/dL 12/04/2023 10:03 AM EDT [facility] 57-10 ALT 30 10 - 35 U/L 12/04/2023 10:03 AM EDT [facility] 57-10 Blood Venous blood specimen / Unknown Venipuncture / Unknown 12/04/2023 8:26 AM EDT 12/04/2023 8:26 AM EDT Marcin MAGALLANES LAB BLOOD ORDERABLES [facility] 57-10 [address] [place] [address] * PT INR (12/04/2023 8:26 AM EDT) Prothrombin Time 12.7 11.6 - 15.2 seconds 12/04/2023 9:04 AM EDT [facility] 57-10 INR 1.0 0.8 - 1.2 12/04/2023 9:04 AM EDT [facility] 57-10 Blood Venous blood specimen / Unknown Venipuncture / Unknown 12/04/2023 8:26 AM EDT 12/04/2023 8:26 AM EDT Narrative [facility] 57-10 - 12/04/2023 9:04 AM EDT Warfarin Therapy INR: 2.0-3.0 conventional anticoagulation INR: 2.5-3.5 high intensity anticoagulation Marcin MAGALLANES LAB BLOOD ORDERABLES [facility] 57-10 [address] [place] [address] documented in this encounter Visit Diagnoses Diagnosis Bruising- Primary Contusion of unspecified site Adenoma of liver Benign neoplasm of liver and biliary passages Body mass index (BMI) of 40.0 to 44.9 in adult (HCC) Depression with anxiety Dysthymic disorder HTN, goal below 130/80 Unspecified essential hypertension Prediabetes Other abnormal glucose documented in this encounter Care Teams Director Of Elementary Education Relationship Specialty Start Date End Date Dayday Wahl MD [address] [place] [address] PCP - General Family Medicine 03/18/20 documented as of this encounter"
--- OUTSIDE RECORDS SUMMARY | 2023-12-05 10:37 | External Medical Summary | Summary of Care ---
Author Name Unknown Organization [facility] Address [address] [place] [address] Phone [phone] Care Team Providers Care Software Quality Assurance Analyst Name Role Phone Dayday Wahl MD Primary Care Provider [phone] Reason for Visit * Reason Comments Outpatient Testing Encounter Details Date Type Department Care Team (Late st Contact Info) Description 12/04/2023 8:40 AM EDT Laboratory Laboratory, [facility] [address] [place] [address] [facility] [address] [place] [address] Bruising Allergies No known active allergiesdocumented as of [...] Overview: Per Prediabetes protocol Rheumatoid arthritis of [facility] sites without rheumatoid factor 10/10/2022 Depression with [...] Cigarettes Q uit: 09/17/2002 Smokeless Tobacco: Never Alcohol Use Standard Drinks/Week Comments Yes 0 [...] on file documented as of this encounter Plan of Treatment Upcoming Encounters Date Type Department Care Team (Late st Contact Info) Description 12/09/2023 10:30 AM EDT Telemedicine Rheumatology, [place] [address], [place] [id number] Agc5, Pharmacist [facility] [address] [facility] [place] [address] 02/14/2024 10:00 AM EDT Office Visit Rheumatology [address] [place] [phone] [address] [place] CRNP [address] [facility] [place] [address] 05/04/2024 1:00 PM EDT Office Visit Gynecology/Obstetrics [facility] [address] [place] [address] Jaleesa Hess PA-C [address] [place] [address] Pending Results Name Type Priority Associated Diagnoses Date /Time CBC WITH WBC DIFFERENTIAL AND ANEMIA REFLEX WORKUP Lab Routine Bruising 12/04/2023 8:26 AM EDT PT INR Lab Routine Bruising 12/04/2023 8:26 AM EDT COMPREHENSIVE METABOLIC PANEL Lab Routine Bruising 12/04/2023 8:26 AM EDT ANEMIA CBC Lab Routine Bruising 12/04/2023 8:26 AM EDT DIFFERENTIAL, AUTOMATED Lab Routine Bruising 12/04/2023 8:26 AM EDT ANEMIA REFLEX CHEMISTRY HOLD Lab Routine Bruising 12/04/2023 8:26 AM EDT Health Maintenance Due Date Last Done Comments Pneumococcal Vaccine: Pediatrics (0 to 5 Years) and At-Risk Patients (6 to 64 Years) (1 of 2 - PCV) 1987 HIV Screening 1996 Albumin/Creatinine Ratio 1999 COVID-19 Vaccine (3 - Moderna risk series) 11/02/2020 10/05/2020, 09/07/2020 HbA1c 10/26/2023 10/25/2022 GFR 04/19/2024 04/19/2023, 0811/2022, 02/11/2023, Additional history exists Mammogram 06/18/2024 06/18/2023, 05/19, 12/19/2021 Pap Smear 04/03/2026 04/03/2023, 11/18, 08/29/2016 Lipid [...] this encounter Medical Devices Implanted Type Area Premix Concrete Batcher Device Identifier Shelf Expiration Date Model / Serial / Lot Syr Pf 2ml Embospheres 100-300 - [id number] Implanted:Qty: 1 on 04/18/2023 by Chao King DO at OR [facility] N/A: Chest [employer] 10/14/2025 S220GH / / [id number] Syr [facility] - [id number] Implanted:Qty: 1 on 04/18/2023 by Chao King DO at OR [facility] [employer] [id number] 10/14/2025 S220GH / / [id number] documented as of this encounter Visit Diagnoses Diagnosis Bruising Contusion of unspecified site documented in this encounter Care Teams Software Quality Assurance Analyst Relationship Specialty Start Date End Date Dayday Wahl MD [address] [place] [address] PCP - General Family Medicine 03/18/20 documented as of this encounter
--- OUTSIDE RECORDS SUMMARY | 2023-12-05 10:38 | External Medical Summary | Summary of Care ---
Author Name Unknown Organization [facility] Address [address] [place] [address] Phone [phone] Care Team Providers Care Pipe Stress Engineer Name Role Phone Dayday Wahl MD Primary Care Provider [phone] Reason for Visit * Reason Comments Follow Up Encounter Details Date Type Department Care Team (Late st Contact Info) Description 11/21/2023 9:40 AM EDT Office Visit Hepatology, [facility] [address] [place] [address] Vikki Louie DO [address] [place] [address] Adenoma of liver* Allergies No known active allergiesdocumented as of this encounter (statuses as of 11/21/2023) Medications Medication Sig Dispensed Refills Start Date End Date Status Lisinopril 30 MG Oral Tablet Take 1 Tablet by mouth in the morning. 90 Tablet 3 03/01/2023 Active ProAir HFA 108 (90 Base) MCG/ACT Inhalation Aerosol Solution Inhale 2 Puffs by mouth every 4 hours as needed for Wheezing. 18 g 3 03/28/2023 Active Norethindrone 0.35 MG Oral TabletIndications:Enc ounter for initial prescription of contraceptive pills Take [...] With meals.. 30 Tablet 0 07/18/2023 Active DULoxetine HCl 60 MG Oral Capsule Delayed Release Particles (Cymbalta) Take 1 Capsule by mouth in the morning. 30 Capsule 2 07/23/2023 Active DULoxetine HCl 30 MG Oral Capsule Delayed Release Particles (Cymbalta) Take 1 Capsule by mouth every afternoon. 30 Capsule 2 07/23/2023 Active predniSONE 5 MG Oral Tablet (Deltasone) Take [...] mouth daily. 30 Tablet 2 11/14/2023 Active documented as of this encounter (statuses as of 11/21/2023) Active Problems Problem Noted Date Diagnosed Date PTSD (post-traumatic stress disorder) 01/29/2023 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---have spontaneously bled -avoid estrogen containing OCP Prediabetes 10/29/2022 Overview: Per Prediabetes protocol Rheumatoid arthritis of [facility] sites without rheumatoid factor 10/10/2022 Depression with anxiety 09/24/2022 HTN, goal below 130/80 08/15/2021 Obesity, Class II, BMI 35-39.9, isolated (see ac tual BMI) 08/14/2021 Gastroesophageal reflux disease with esophagitis 03/21/2020 documented as of this encounter (statuses as of 11/21/2023) Resolved Problems Problem Noted Date Diagnosed Date Resolved Date Seronegative polyarthritis 08/09/2020 0 01/28/2023 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 Rheumatoid arthritis involvi ng multiple sites with positive rheumatoid factor 03/18/2020 08/09/20 20 documented as of this encounter (statuses as of 11/21/2023) Immunizations Name Administration Dates Next Due COVID-19 [...] Sign Reading Time Taken Comments Blood Pressure 130/86 11/21/2023 9:58 AM EDT Pulse 84 11/21/2023 9:58 AM EDT Temperature 36.7 C (98.1 F) 11/21/2023 9:58 AM ED T Respiratory Rate - - Oxygen Saturation 97% 11/21/2023 9:58 AM EDT Inhaled Oxygen Concentration - - Weight 103.6 kg (228 lb 8 oz) 11/21/2023 9:58 AM EDT Height 159.4 cm (5' 2.76") 11/21/2023 9:58 AM ED T Body Mass Index 40.79 11/21/2023 9:58 AM EDT documented in this encounter Progress Notes * Vikki Louie, DO - 11/21/2023 10:16 AM EDT CC: follow up for hepatic adenomas HPI: Mary Kate Howard is a 43 year old female presenting today for follow up of hepatic adenomas. Shehas PMH notable for HTN, depression, PTSD, RA, and obesity (BMI 39). She was found to have multiple bleeding hepatic adenomas. She was seen and treated at [facility]. Her estrogen containing OCP was appropriately discontinued prior to discharge, and her antihypertensive regimen was also changed. She had gone to the hospital early January 2023 because she was fishing and then developed severe painin her upper abdomen and into her back. She went home and checked her blood pressure and it was 180/113. She had an MRI of the liver 01/23/23 through [facility] which showed multiple hepatic adenomas 2 of which have bled within the left lobe of the liver. Possibility of FNH but felt to be less likely. Thereare 2 lesions in the left lobe of liver demonstrating heterogeneous signal on T1 weighted imaging with multiple areas of high signal intensity on T1 precontrast imaging suggesting acute blood products the largest seen in the lateral segment the left lobe measuring 5.3 by 3.8 cm with adjacent lesionin the medial segment the left lobe measuring 2.2 x 2.2 cm. Her blood count was stable without any decrease. She states she was never told in the past she had adenomas or any liver issues. She was previously on estrogen containing OCPs for many years. No known family history of any liver disease, HCC, GI malignancy. She then saw Dr. King from and underwent arterial embolization to hepatic adenomas. Had MRI liver completed 10/18/2023 which showed Interval decrease in the size of previously treated lesions. Several additional bilateral lesions also demonstrate mild decrease in size. She states she did have a lot of abdominal pain after the embolizations and she gets pain under the breasts but its gotten a lot better. Heating pad seems to help. She feels its MSK in etiology as it seems to be worse after work. She states in 2020 she did have adenomas that were treated too. She is not sure exactly what they did she just had some type of treatment that she believes were coils and this was [facility]. Past Medical History: Diagnosis Date 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 Multiple---have spontaneously bled -avoid estrogen containing OCP Depression with anxiety 09/24/2022 Gastroesophageal reflux disease with esophagitis 03/21/2020 HTN, goal below 130/80 08/15/2021 PTSD (post-traumatic stress disorder) 01/29/2023 Rheumatoid arthritis involving multiple sites with positive rheumatoid factor (HCC) 03/18/2020 Seronegative polyarthritis 08/09/2020 Current Outpatient Medications Medication Sig Dispense Refill Lisinopril 30 MG Oral Tablet Take 1 Tablet by mouth in the morning. 90 Tablet 3 ProAir HFA 108 (90 Base) MCG/ACT Inhalation Aerosol Solution Inhale 2 Puffs by mouth every 4 hours as needed for Wheezing. 18 g 3 Norethindrone 0.35 MG Oral Tablet Take 1 Tablet by mouth in the morning. 90 Tablet 3 Omeprazole 40 MG Oral Capsule Delayed Release (PriLOSEC) TAKE 1 CAPSULE BY MOUTH DAILY 1 HOUR BEFORE THE FIRST MEAL OF THE DAY 90 Capsule 3 Ibuprofen 600 MG Oral Tablet (Motrin) Take 1 Tablet by mouth in the morning and 1 Tablet at noon and 1 Tablet before bedtime. With meals.. 30 Tablet 0 DULoxetine HCl 60 MG Oral Capsule Delayed Release Particles (Cymbalta) Take 1 Capsule by mouth in the morning. 30 Capsule 2 DULoxetine HCl 30 MG Oral Capsule Delayed Release Particles (Cymbalta) Take 1 Capsule by mouth every afternoon. 30 Capsule 2 predniSONE 5 MG Oral Tablet (Deltasone) Take 4 Tablets by mouth daily for 10 days, THEN 3 Tablets daily for 10 days, THEN 2 Tablets daily for 10 days, THEN 1 Tablet daily for 10 days. 100 Tablet 0 Rinvoq 15 MG Oral Tablet Extended Release 24 Hour (Upadacitinib ER) Take 1 Tablet by mouth daily. 30 Tablet 2 No current facility-administered medications for this visit. Review of patient's allergies indicates: No Known Allergies Social History Socioeconomic History Marital status: Spouse name: Not on file Number of children: Not on file Years of education: Not on file Highest education level: Not on file Occupational History Not on file Tobacco Use Smoking status: Former Current packs/day: 0.00 Types: Cigarettes Quit date: 09/17/2002 Years since quittin.1 Smokeless tobacco: Never Vaping Use Vaping Use: [...] on file Housing Stability: Not on file Family History Problem Relation Age of Onset Alcohol and Other Disorders Associated Father Coronary Artery disease Father Other (other) Brother Psoriatic arthritis Breast Cancer Aunt (Maternal) Review of Systems: Constitutional: No report of fever, chills, night sweats. There have been no non-intentional weightchanges. Eyes: No recent changes in visual acuity or blurring of vision. ENT: No change in auditory acuity, sense of smell or taste. CV: No chest pain, palpitations, dyspnea on exertion. Respiratory: No wheezing, cough, sputum production. : No dysuria, polyuria, change in urinary frequency. GI: Per HPI, otherwise negative. Psychiatric: No chronic changes in mood, affect or sensorium. Musculoskeletal: No myalgias, arthralgias, or joint pains. Neurological: No change in gait, change in maintenance of balance, neurologic injuries. Physical Exam: Constitutional: BP 130/86 (BP Site: Left Arm, BP Position: Sitting, BP Cuff Size: Large) | Pulse 84| Temp 36.7 C (98.1 F) (Tympanic) | Ht 1.594 m (5' 2.76") | Wt 103.6 kg (228 lb 8 oz) | SpO2 97% | BMI 40.79 kg/m | BSA 2.14 m Well developed, well nourished female in no apparent distress. Eyes: Conjunctivae and sclerae are clear and non-icteric. CV: Heart is regular without murmur, rub or sanchez. Pulm: Clear to percussion and auscultation. GI: Abdomen is soft, non-tender, with normo-active bowel sounds in all four quadrants. No hepatosplenoegaly is appreciated. No masses are palpated. No guarding or rebound is noted. Psychiatric: The patient is alert and oriented in all four spheres. Mood is euthymic. Affect is appropriate for the situation. Skin: No rashes were noted. Musculoskeletal: Gait is normal. Patient is able to transfer from sitting position to exam table without assistance. Imaging: Reviewed MRI liver 10/2023: Liver: Redemonstration of multiple liver lesions compatible with given history of hepatic adenomas. A segment 6 lesion on image 67 of series 8 measures 0.8 x 1.9 cm, previously 3.5 x 5.1 cm. A segment 5 lesion on image 0.7 x 1 cm previously measured 2.4 x 3 cm. The bowel lesions appear to be treated lesions with interval decrease in size. A left lobe post treatment zone on image 46 of series 8 measures 1.7 x 1.7 cm, previously 2 x 2.5 cm. Another treatment zone to the left side of the above area measures 1.5 x 1.5 cm, previously 3.3 x5.2 cm. Enhancing area seen around this area may indicate partially treated lesion or contiguous non treated lesions. There is overall interval improvement. Several additional lesions in both lobes of liver. A right lobe lesion on image 30 of series 8 measures 2.8 x 3.3 cm, previously 3.5 x 3.9 cm. A segment 7 lesion on image 36 of series 8 measures 2.7 x 3.6 cm, previously 3.5 x 4.4 cm. IMPRESSION 1. Interval decrease in the size of previously treated lesions. Several additional bilateral lesions also demonstrate mild decrease in size. MRI liver 01/23/2023: MRI liver with and without contrast Order: [id number] Impression 1. Imaging findings consistent with multiple adenomas 2 of which have bled within the left lobe of liver discussed above. The possibility that the other lesions relate to FNH is also consideration although felt to be less likely. Upon follow-up examinations, consider for MRI with Eovist to distinguish this. Oral contraceptive use? Narrative MRI LIVER W WO CONTRAST, January 23, 2023 12:22 PM INDICATIONS: multple hepatic lesions;multple hepatic lesions, contrast enhancing on CT COMPARISON: Recent outside exam CT TECHNIQUE: Multiplanar, multisequence MR imaging of the abdomen was performed with and without contrast. Axial and coronal HASTE images, axial T2W fat saturated, axial T1W in and out of phase, axial T1W fat saturated along with postcontrast T1W fat saturated images in axial plane in arterial, portal venous and delayed fashion. Delayed T1W images post contrast were obtained in coronal plane as well. gadobutroL (GADAVIST) 7.5 mmol/7.5 mL (1 mmol/mL) injection 9.07 mL was administered intravenously without complication. FINDINGS: Liver: The liver demonstrates a normal signal intensity morphology. There multiple T1 hyperintense lesion seen scattered throughout the liver parenchyma most of which demonstrating similar characteristics except 2 lesion seen within the lateral segment left lobe common segment 2/3. for instance a segment 7 lesion measuring 4.1 cm on series 5, image 14 without evidence of microscopic fat demonstrates brisk arterial enhancement that becomes more isointense on further delayed splayed sequences. This lesion is minimally hyperintense on T2 weighted imaging in nearly isointense. There multiple additional lesions that demonstrates similar characteristics to this lesion. Findings most likely relate to adenomas with the possibility of FNH also consideration although felt to be less likely given the findings discussed below. There are 2 lesions in the left lobe of liver demonstrating heterogeneous signal on T1 weighted imaging with multiple areas of high signal intensity on T1 precontrast imaging suggesting acute blood products the largest seen in the lateral segment the left lobe measuring 5.3 by 3.8 cm with adjacent lesion in the medial segment the left lobe measuring 2.2 x 2.2 cm. Both lesions demonstrate heterogeneous T1 signal with heterogeneous T2 signal without evidence of significant Pj mint with exception of the rim both demonstrating isointense signal intensity. These likely relate to adenomas with recent bleeding. Gallbladder: Unremarkable Biliary tree: Nondilated Spleen: Unremarkable Adrenal glands: Unremarkable Pancreas: Demonstrates a normal signal intensity without evidence of ductal dilatation. No discrete lesion. Kidneys: Enhance symmetrically without hydronephrosis. Adenopathy: No enlarged lymph nodes. Bowel: Unremarkable Bone marrow: Unremarkable Lower chest: Unremarkable Vasculature: Unremarkable ASSESSMENT: Mary Kate Howard is a 43 year old female presenting today for follow up of hepatic adenomas. She has PMH notable for HTN, depression, PTSD, RA, and obesity (BMI 39). Plan: 1. Multiple Hepatic adenomas with history of bleeding. She saw Dr. King from and underwent arterial embolization to hepatic adenomas in 03/2023. Had MRI liver completed 10/18/2023 which showed Interval decrease in the size of previously treated lesions. Several additional bilateral lesions also de monstrate mild decrease in size. Will plan for repeat MRI in 1 year for surveillance (10/2024). She states in 2020 she did have adenomas that were treated too. She is not sure exactly what they did she just had some type of treatment that she believes were coils and this was [facility]. No longer on estrogen containing OCPs since . 2. Follow up in 1 year Vikki Louie DO Gastroenterology and Hepatology I spent a total of 35 minutes on the date of service in review of patient's record, and previously obtained information in person and appropriate medical visit, discussion and education of plan, withpatient and/or caregiver, placing orders for tests/referral/procedures as medically necessary and documentation of pertinent clinical information in patient's medical records for their visit today. documented in this encounter Nursing Notes * Claribel Yang LPN - 11/21/2023 9:55 AM EDT Patient presents today for follow up. States she is doing good. She is having epigastric pain still. It is better than before. She is wondering why she still has it. documented in this encounter Plan of Treatment Upcoming Encounters Date Type Department Care Team (Late st Contact Info) Description 12/09/2023 10:30 AM EDT Telemedicine Rheumatology, [address] [address] Agc5, Pharmacist Rheumatology [address] [place] [id number] 02/14/2024 10:00 AM EDT Office Visit Rheumatology [address] [place] [phone] Av Austin CRNP [address] [place] [address] [place] [id number] 05/04/2024 1:00 PM EDT Office Visit Gynecology/Obstetrics [facility] [address] [place] [address] Jaleesa Hess PA-C [address] [place] [address] Health Maintenance Due Date Last Done Comments Pneumococcal Vaccine: Pediatrics (0 to 5 Years) and At-Risk Patients (6 to 64 Years) (1 of 2 - PCV) 1987 HIV Screening 1996 Albumin/Creatinine Ratio 1999 COVID-19 Vaccine (3 - Moderna risk series) 11/02/2020 10/05/2020, 09/07/2020 Depression Screening 12/05/2022 12/05/2021 HbA1c 10/26/2023 10/25/2022 GFR 04/19/2024 04/19/2023, 08/11/2022, 02/11/2023, Additional history exists Mammogram 06/18/2024 06/18/2023, [...] this encounter Medical Devices Implanted Type Area Csr Device Identifier Shelf Expiration Date Model / Serial / Lot Syr Pf 2ml [facility] 100-300 - [id number] Implanted:Qty: 1 on 04/18/2023 by MassChao guo DO at OR [facility] N/A: Chest [employer] 10/14/2025 S220 / / [id number] Syr Pf 2ml [employer] 100-300 - [id number] Implanted:Qty: 1 on 04/18/2023 by Chao King DO at OR [facility] [employer] [id number] 10/14/2025 S220 / / [id number] documented as of this encounter Visit Diagnoses Diagnosis Adenoma of liver- Primary Benign neoplasm of liver and biliary passages documented in this encounter Care Teams Pipe Stress Engineer Relationship Specialty Start Date End Date Dayday Wahl MD [address] [place] [address] PCP - General Family Medicine 03/18/20 documented as of this encounter
--- OUTSIDE RECORDS SUMMARY | 2023-12-05 10:38 | External Medical Summary ---
Author Name Unknown Address Unknown Organization K0G:[facility] [address] [facility] [id number] Laboratory Report Ordering Provider Test Date Status EZEKIEL NIETO 12/04/2023 08:26:35 Final Observation Date Value Abnormality Reference (Units ) Status SYNC LEUKOCYTES IN BLOOD BY AUTOMATED COUNT 12/04/2023 08:26:35 10.23 4.00-10.80 (K/uL) Final Segs 12/04/2023 08:26:35 59.7 40.0-75.0 (%) Final Lymphs % 12/04/2023 08:26:35 31.6 18.0-42.0 (%) Final Monos 12/04/2023 08:26:35 7.2 1.0-11.0 (%) Final Eosinophils 12/04/2023 08:26:35 1.0 0.0-6.0 (%) Final Basos 12/04/2023 08:26:35 0.5 0.0-2.0 (%) Final Absolute Segs 12/04/2023 08:26:35 6.13 1.80-7.70 (K/uL) Final Lymphs, absolute 12/04/2023 08:26:35 3.25 1.00-4.80 (K/ul) Final Monos, Abs 12/04/2023 08:26:35 0.74 0.00-1.10 (K/uL) Final Eos, Abs 12/04/2023 08:26:35 0.10 0.00-0.70 (K/uL) Final Basos, Abs 12/04/2023 08:26:35 0.05 0.00-0.20 (K/uL) Final Performing Location [facility] [address] [place] [address]
--- OUTSIDE RECORDS SUMMARY | 2023-12-05 10:38 | External Medical Summary | Summary of Care ---
Author Name Unknown Organization [facility] Address [address] [place] [address] Phone [phone] Care Team Providers Care Spray Painter Helper Name Role Phone Dayday Wahl MD Primary Care Provider [phone] Reason for Referral * Evaluate & Treat - Unlimited Visits (Within 10 days (routine)) - Pending Review Specialty Diagnoses / Procedures Referred By Gabriela boogie Referred To Contact Pharmacist / Pharmacy Diagnoses Seronegative rheumatoid arthritis (HCC) Av Quick CRNP [address] [place] [address] Referral ID Status Reason Start Date Expiration Date Visits Requested Visits Authorized [id number] Pending Review Specialty Services Required 11/11/2023 99 99 Question Answer Referral Priority Within 10 days (routine) Where should this appointment be scheduled? [facility] Referring Provider Role: Specialist Specialty: Rheum Reason for Referral: Med Education Comments Rheumatology Pharmacist Disease Modifying Antirheumatic Drug (DMARD) Co- Management Referral for: med education Additional Comments: none Minimum frequency patient should be seen in person for medication management: As appropriate per clinical condition and patient status By my signature, I understand that my patient, Mary Kate Howard will have her medication therapy managed by the [facility] Medication Therapy Disease Management Clinic ([facility]) per established policies, procedures, and protocols. I also certify that this referral may serve as an initiation of service for the management of drug therapy in the above noted patient. MTDM providers will be responsible for scheduling patient visits, obtaining appropriate laboratory studies, and adjusting medication management therapy per patient's need, in addition to those roles spelled out in the clinic policy, procedures, and drug management protocols. I understand that the service provided by the [facility] is voluntary and have informed patient that they can refuse the service at their discretion. I am aware that the [facility] will provide me with a copy of the patient encounter via my [employer] In-Basket. I authorize the [facility] to carry out these activities on my behalf. I consider this program to be a necessary part of the patient's medical care. Tamiko Foley Formerly [facility] Reason for Visit * Reason Onset Date Comments Precert Approved 11/08/2023 Rinvoq Encounter Details Date Type Department Care Team (Late st Contact Info) Description 11/08/2023 Refill Rheumatology [address] [place] [phone] Av Quick CRNP [address] [facility] [place] [address] Seronegative rheumatoid arthritis (HCC)* Allergies No known active allergiesdocumented as of this encounter (statuses as of 11/14/2023) Medications Medication Sig Dispensed Refills Start Date [...] as of this encounter (statuses as of 11/14/2023) Active Problems Problem Noted Date Diagnosed Date PTSD (post-traumatic stress disorder) 01/29/2023 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---have spontaneously bled -avoid estrogen containing OCP Prediabetes 10/29/2022 Overview: Per Prediabetes protocol Rheumatoid arthritis of [facility] sites without rheumatoid factor 10/10/2022 Depression with anxiety 09/24/2022 HTN, goal below 130/80 08/15/2021 Obesity, Class II, BMI 35-39.9, isolated (see ac tual BMI) 08/14/2021 Gastroesophageal reflux disease with esophagitis 03/21/2020 documented as of this encounter (statuses as of 11/14/2023) Resolved Problems Problem Noted Date Diagnosed Date Resolved Date Seronegative polyarthritis 08/09/2020 0 01/28/2023 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 Rheumatoid arthritis involvi ng multiple sites with positive rheumatoid factor 03/18/2020 08/09/20 20 documented as of this encounter (statuses as of 11/14/2023) Immunizations Name Administration Dates Next Due COVID-19 [...] on file documented as of this encounter Miscellaneous Notes * Telephone Encounter - Alexis Braun RPh - 11/14/2023 1:48 PM EDTSigned Prescriptions: Disp Refills Rinvoq 15 MG Oral Tablet Extended Release *30 Tab*2 Sig: Take 1 Tablet by mouth daily.Authorizing Provider: AV QUICK User: ALEXIS BRAUN--------- * Addendum Note - Alexis Braun RPh - 11/14/2023 1:48 PM EDTAddended by: ALEXIS BRAUN on: 11/14/2023 01:48 PM Modules accepted: Orders * Addendum Note - Kim Galvez CPhT - 11/14/2023 1:13 PM EDTAddended by: KIM GALVEZ on: 11/14/2023 01:13 PM Modules accepted: Orders * Telephone Encounter - Kim Galvez CPhT - 11/14/2023 1:10 PM EDT Rheumatology Pre-Certification Response Approved - Script pended - to be filled at [facility] (P: [phone]) Thank you, Kim Venegas [facility] Veterinary Medicine Scientist III [facility] ([facility]) (Formerly Telepharmacy) 11/14/2023,1:10 PM * Telephone Encounter - Magda Monet CPhT - 11/14/2023 8:03 AM EDT Patient Phone Numbers Sent Aylat message to patient to schedule [facility] appointment for Medication Education. Appointment scheduled as noted below. 12/09/2023 Thank you, Magda Monet CPhT-[facility] Veterinary Medicine Scientist Varnish Cooker [facility] ([facility]) (formerly Telepharmacy) 11/14/2023,8:04 AM * Telephone Encounter - Tamiko Foley [facility] - 11/11/2023 10:31 AM EDT Rheumatology Pre-Certification Request Medication/Disease State Information: Diagnosis: (M06.00) Seronegative rheumatoid arthritis Patient Age: [age] year old Medication/Dose/Route/Interval: Rinvoq: 15 mg once daily Site of Care: Self-Administered Insurance considerations: Non-[facility] commerical Previously Tried Therapy: Previously tried and resulted in inadequate response/therapeutic failure: Cimzia, Enbrel, Humira, Methotrexate, and Xeljanz Required Screening Information: Vaccination(s): Patient has [facility] PCP - plan in place for CDC/ACIP vaccination guidelines usingHealth Maintenance Topics, Best Practice Alerts, and Anticipatory Management Reports within EHR TB Testing: Completed under scans, care everywhere or epic Hepatitis B Screenings: Completed under scans, care everywhere or epic Hepatitis C Screenings: Completed under scans, care everywhere or epic No active, severe, and/or uncontrolled infection Reauthorization: No Rheumatology Office Information: Veterinary Radiologist: AV QUICK Rheumatology Pharmacist: Deo Vargas Rheumatology Pharmacist Appointment Request Department & Provider: Rheumatology [address] [[id number]] - Pharmacist Rheumatology [facility] [[id number]] Patient to be scheduled for visit type: Telephonic Medicine Visit [[id number]] Length of visit: 30 min Reason for visit: med education Time Frame: within 2-4 weeks Please route this encounter back to Rheum Pharmacist Refill Pool/Class [p [phone]] if unable to schedule patient after 3 attempts. Thank you and have a wonderful day, Tamiko Foley RPh * Telephone Encounter - Av Quick CRNP - 11/08/2023 1:53 PM EDT Rheumatology Education, Pre-Certification, and/or Pharmacist Co-Management Request Medication Education: yes Pre-Certification: [facility]: Pre-cert for Prednisone, DMARDs & IV/IM/SC Osteoporosis Meds (routeto rheumatology pharmacist pool p [phone]) Pharmacist Co-Management ([facility] ONLY; [place] select "no"): No Pharmacist Co-Management Medication/Disease State Information: Diagnosis: (M06.00) Seronegative rheumatoid arthritis Medication:Rinvoq: 15 mg once daily Failed or Intolerant to or Contraindicated: Cimzia, Enbrel, Humira, Methotrexate PO, and Xeljanz Comments Please contact patient with any OOP costs Rheumatology Pharmacist Disease Modifying Antirheumatic Drug (DMARD) Co- Management (If Applicable) Minimum frequency patient should be seen in person for medication management: As appropriate per clinical condition and patient status By my signature, I understand that my patient will [facility]) per established policies, procedures, and protocols. I also certify that this referral may serve as an initiation of service for the management of drug therapy in the above noted patient. [facility] providers will be responsible for scheduling patient visits, obtaining appropriate laboratory studies, and adjusting medication management therapy per patient's need, in addition to those roles spelled out in the clinic policy, procedures, and drug management protocols. I understand that the service provided by the [facility] is voluntary and have informed patient that they can refuse the service at their discretion. I am aware that the [facility] will provide me with a copy of the patient encounter via my [employer] In-Basket. I authorize the [facility] to carryout these activities on my behalf. I consider this program to be a necessary part of the patient's medical care. ELPIDIO Gonzales documented in this encounter Plan of Treatment Upcoming Encounters Date Type Department Care Team (Late st Contact Info) Description 11/21/2023 9:40 AM EDT Office Visit Hepatology, [facility] [address] [place] [address] Vikki Louie DO [address] [place] [address] 12/09/2023 10:30 AM EDT Telemedicine Rheumatology, [place] [address] [place] [address] Agc5, Pharmacist Rheumatology [place] [address] 02/14/2024 10:00 AM EDT Office Visit Rheumatology [address] [place] [phone] Av Quick CRNP [facility] [place], [place] [address] 05/04/2024 1:00 PM EDT Office Visit Gynecology/Obstetrics [facility] [address] [place] [address] Jaleesa Hess PA-C [address] [place] [address] Scheduled Referrals Name Type Priority Associated Diagnoses Orde r Schedule PHARMACIST MEDS THERAPY MGMT REFERRAL OP Referral Within 10 days (routine) Seronegative rheumatoid arthritis (HCC) Ordered: 11/11/2023 Health Maintenance Due Date Last Done Comments HIV Screening 1996 Albumin/Creatinine Ratio 1999 Depression Screening 12/05/2022 12/05/2021 COVID-19 Vaccine ( season) 2023 10/05/2020, 09/07/2020 HbA1c 10/26/2023 10/25/2022 GFR 04/19/2024 [...] on patient's age to complete this topic Pneumococcal Vaccine: Pediatrics (0 to 5 Years) and At-Risk Patients (6 to 64 Years) Aged Out No longer eligible based on patient's age to complete this topic documented as of this encounter Medical Devices Implanted Type Area Diesel Truck Technician Device Identifier Shelf Expiration Date Model / Serial / Lot Syr Pf 2ml Embospheres 100-300 - [id number] Implanted:Qty: 1 on 04/18/2023 by Chao King DO at OR [facility] N/A: Chest [employer] 10/14/2025 S220GH / / [id number] Syr Pf 2ml Embospheres 100-300 - [id number] Implanted:Qty: 1 on 04/18/2023 by Chao King DO at OR [facility] [employer] [id number] 10/14/2025 S220GH / / [id number] documented as of this encounter Visit Diagnoses Diagnosis Seronegative rheumatoid arthritis (HCC)- Primary Rheumatoid arthritis documented in this encounter Care Teams Spray Painter Helper Relationship Specialty Start Date End Date Dayday Wahl MD [address] [place] [address] PCP - General Family Medicine 03/18/20 documented as of this encounter
--- OUTSIDE RECORDS SUMMARY | 2023-12-05 10:38 | External Medical Summary ---
Author Name Unknown Address Unknown Organization K0G:[facility] [place] [facility] [address] - [address] [place] [address] Laboratory Report Ordering Provider Test Date Status EZEKIEL NIETO 12/04/2023 08:26:35 Final Observation Date Value Abnormality Reference (Units ) Status BUN 12/04/2023 08:26:35 13 6-20 (mg/dL) Final Creatinine 12/04/2023 08:26:35 0.9 0.5-1.0 (mg/dL) Final Glomerular filtration rate/1.73 sq M.predicted [Volume Rate/Area] in Serum, Plasma or Blood by Creatinine-based formula (CKD-EPI) 12/04/2023 08:26:35 80 >=60 (mL/min) Final eGFR is calculated based on the CKD-EPI 2020 equation Sodium 12/04/2023 08:26:35 141 135-146 (m mol/L) Final Potassium 12/04/2023 08:26:35 3.8 3.5-5.1 (m mol/L) Final Cl 12/04/2023 08:26:35 102 98-107 (mm ol/L) Final CO2 12/04/2023 08:26:35 29 22-32 (mmo l/L) Final Anion gap 12/04/2023 08:26:35 10 7-15 (mmol /L) Final Glucose 12/04/2023 08:26:35 109 70-120 (mg /dL) Final Albumin 12/04/2023 08:26:35 4.3 3.8-5.0 (g /dL) Final AST (Aspartate aminotransferase) 12/04/2023 08:26:35 24 10-35 (U/L) Final Alk Phos 12/04/2023 08:26:35 120 35-130 (U/ L) Final Bilirubin, Total 12/04/2023 08:26:35 0.3 <=1 .2 (mg/dL) Final Calcium 12/04/2023 08:26:35 8.9 8.4-10.2 ( mg/dL) Final Protein 12/04/2023 08:26:35 7.0 6.0-8.3 (g /dL) Final ALT (Alanine aminotransferase) 12/04/2023 08:26:35 30 10-35 (U/L) Final Performing Location [facility] [place] [address] [facility] [address]
--- OUTSIDE RECORDS SUMMARY | 2023-12-05 10:38 | External Medical Summary ---
Author Name Unknown Address Unknown Organization K01:LAB[facility]ORY [facility] - [address] [place] [address] Laboratory Report Ordering Provider Test Date Status JOAQUINBrockEZEKIEL 12/04/2023 08:26:35 Final Observation Date Value Abnormality Reference (Units ) Status Ferritin 12/04/2023 08:26:35 48 13-150 (ng /mL) Final Postmenopausal women have hi gher ferritin levels than pre-menopausal women. The above reference interval is based on pre-menopausal women. Performing Location [facility] - [address] [place] [address]
--- OUTSIDE RECORDS SUMMARY | 2023-12-05 10:38 | External Medical Summary ---
Author Name Unknown Address Unknown Organization K01:[facility]ATORY [facility] - [address] [place] [address] Laboratory Report Ordering Provider Test Date Status JOAQUINBrockEZEKIEL 12/04/2023 08:26:35 Final Observation Date Value Abnormality Reference (Units ) Status Retic, % (auto) 12/04/2023 08:26:35 2.53 Above high normal 0.80-1.90 (%) Final Reticulocytes, Absolute 12/04/2023 08:26:35 107.0 Above high normal 31.3-100.1 (K/uL) Final Reticulocyte fraction, immature 12/04/2023 08:26:35 26.7 Above high normal 2.5-20.6 (%) Final Reticulocyte HGB 12/04/2023 08:26:35 27.4 Below low normal 29.7-37.4 (pg) Final Performing Location LABORATORY [facility] - [address] [place] [address]
--- OUTSIDE RECORDS SUMMARY | 2023-12-05 10:38 | External Medical Summary ---
Author Name Unknown Address Unknown Organization K0G:[facility] [place] [address] - [address] [place] [address] Laboratory Report Ordering Provider Test Date Status EZEKIEL NIETO 12/04/2023 08:26:35 Final Warfarin Therapy
INR: 2 .0-3.0 conventional anticoagulation
INR: 2.5- 3.5 high intensity anticoagulation Observation Date Value Abnormality Reference (Units ) Status PT 12/04/2023 08:26:35 12.7 11.6-15.2 (seconds) Final INR 12/04/2023 08:26:35 1.0 0.8-1.2 Final Performing Location [facility] [address] [place] [address]
--- OUTSIDE RECORDS SUMMARY | 2023-12-05 10:38 | External Medical Summary ---
Author Name Unknown Address Unknown Organization K0G:[facility] [place] [address] - [address] [place] [address] Laboratory Report Ordering Provider Test Date Status EZEKIEL NIETO 12/04/2023 08:26:35 Final Observation Date Value Abnormality Reference (Units ) Status WBC, Total 12/04/2023 08:26:35 10.23 4.00-10.8 0 (K/uL) Final RBC 12/04/2023 08:26:35 4.11 3.85-5.15 (M/uL) Final Hemoglobin 12/04/2023 08:26:35 11.5 Below low normal 12 .0-15.3 (g/dL) Final Anemia reflex testing trigge rs on a HGB < 12.0 for Females and HGB < 13.0 for Males in accordance with the WHO Anemia Guidelines HCT 12/04/2023 08:26:35 35.2 Below low normal 36. 0-45.2 (%) Final MCV 12/04/2023 08:26:35 85.6 81.5-97.5 (fL) Final MCH 12/04/2023 08:26:35 28.0 27.0-34.0 (pg) Final MCHC 12/04/2023 08:26:35 32.7 32.0-36.0 (g/dL) Final RDW 12/04/2023 08:26:35 14.8 11.5-15.5 (%) Final Platelets 12/04/2023 08:26:35 <10 Below lower panic li mits 140-400 (K/uL) Final Results rechecked.
null MPV 12/04/2023 08:26:35 Final No result - abnormal platele t distribution. Performing Location [facility]ORY [place] [address] [place] [address]
--- OUTSIDE RECORDS SUMMARY | 2023-12-05 10:38 | External Medical Summary ---
Author Name Unknown Address Unknown Organization [facility] - [address] [place] [address] Laboratory Report Ordering Provider Test Date Status EZEKIEL NIETO 12/04/2023 08:26:35 Final Observation Date Value Abnormality Reference (Units ) Status Nucleated erythrocytes/100 leukocytes [Ratio] in Blood by Automated count 12/04/2023 08:26:35 Final Performing Location [facility] - [address] [place] [address]
--- OUTSIDE RECORDS SUMMARY | 2023-12-05 10:38 | External Medical Summary | Summary of Care ---
Author Name Unknown Organization [facility] Address [address] [place] [address] Phone [phone] Care Team Providers Care Offset Lithographic Press Setter Name Role Phone Dayday Wahl MD Primary Care Provider [phone] Reason for Visit * Reason Onset Date Comments Medication Refill 11/20/2023 Encounter Details Date Type Department Care Team (Late st Contact Info) Description 11/20[facility] [address] [place] [address] Aakash Wise CRNP [address] [place] [address] Allergies No known active allergiesdocumented as of [...] With meals.. 30 Tablet 0 07/18/2023 Active predniSONE 5 MG Oral Tablet (Deltasone) [...] mouth daily. 30 Tablet 2 11/14/2023 Active DULoxetine HCl 60 MG Oral Capsule Delayed Release Particles (Cymbalta) Take 1 Capsule by mouth in the morning. 30 Capsule 0 11/21/2023 Active DULoxetine HCl 30 MG Oral Capsule Delayed Release Particles (Cymbalta) Take 1 Capsule by mouth every afternoon. 30 Capsule 0 11/21/2023 Active DULoxetine HCl 60 MG Oral Capsule Delayed Release Particles (Cymbalta) Take 1 Capsule by mouth in the morning. 30 Capsule 2 07/23/2023 11/20/2023 Discontinue d(Refill) DULoxetine HCl 30 MG Oral Capsule Delayed Release Particles (Cymbalta) Take 1 Capsule by mouth every afternoon. 30 Capsule 2 07/23/2023 11/20/2023 Discontinue d(Refill) documented as of this encounter (statuses as of 11/21/2023) Active Problems Problem Noted Date Diagnosed Date PTSD (post-traumatic stress disorder) 01/29/2023 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---have spontaneously bled -avoid estrogen containing OCP Prediabetes 10/29/2022 Overview: Per Prediabetes protocol Rheumatoid arthritis of [facility] sites without rheumatoid factor 10/10/2022 Depression with [...] encounter Miscellaneous Notes * Telephone Encounter - Aakash Wise CRNP - 11/21/2023 4:13 PM EDT Needs followup * Telephone Encounter - Aakash Wise CRNP - 11/21/2023 4:13 PM EDTSigned Prescriptions: Disp Refills DULoxetine HCl 60 MG Oral Capsule Delayed *30 Cap*0 Sig: Take 1 Capsule by mouth in the morning. Authorizing Provider: AAKASH WISE DULoxetine HCl 30 MG Oral Capsule Delayed *30 Cap*0 Sig: Take 1 Capsule by mouth every afternoon. Authorizing Provider: AAKASH WISE < BR> * Telephone Encounter - Celine Peña LPN - 11/21/2023 7:49 AM EDTPending Prescriptions: Disp Refills DULoxetine HCl 60 MG Oral Capsule Delayed *30 Cap*2 Sig: Take 1 Capsule by mouth in the morning. DULoxetine HCl 30 MG Oral Capsule Delayed *30 Cap*2 Sig: Take 1 Capsule by mouth every afternoon. * Telephone Encounter - Celine Peña LPN - 11/21/2023 7:48 AM EDT Refill request from patient (Lakisha) for Cymbalta 30mg and 60mg. Medication last filled on 07/23/23 with 2 refills. Patient last seen on 07/23/23 with return appointment scheduled for NEEDS. Patient had 0cancelled appointments and 0 NO SHOW appointments. documented in this encounter Plan of Treatment Upcoming Encounters Date Type Department Care Team (Late st Contact Info) Description 12/09/2023 10:30 AM EDT Telemedicine Rheumatology, [place] [address] [place] [address] Agc5, Pharmacist Rheumatology [address] [place] [facility] [place] [address] 02/14/2024 10:00 AM EDT Office Visit Rheumatology [address] [place] [phone] Av Austin CRNP [facility] [place] [place] [address] 05/04/2024 1:00 PM EDT Office Visit Gynecology/Obstetrics [facility] [address] [place] [address] Jaleesa Hess PA-C [address] [place] [address] Health Maintenance Due Date Last Done Comments [...] this encounter Medical Devices Implanted Type Area Outbound Telemarketer Device Identifier Shelf Expiration Date Model / Serial / Lot Syr Pf 2ml Embospheres 100-300 - [id number] Implanted:Qty: 1 on 04/18/2023 by Chao King DO at OR [facility] N/A: Chest [employer] 10/14/2025 S220GH / / [id number] Syr Pf 2ml Embospheres 100-300 - [id number] Implanted:Qty: 1 on 04/18/2023 by Chao King DO at OR [facility] [employer] [id number] 10/14/2025 S220GH / / [id number] documented as of this encounter Care Teams Offset Lithographic Press Setter Relationship Specialty Start Date End Date Dayday Wahl MD [address] [place] [address] PCP - General Family Medicine 03/18/20 documented as of this encounter
--- OUTSIDE RECORDS SUMMARY | 2023-12-05 10:39 | External Medical Summary | Summary of Care ---
Author Name Unknown Organization [facility] Address [address] [place] [address] Phone [phone] Care Team Providers Care Sheeter Waxer Operator Name Role Phone Dayday Wahl MD Primary Care Provider [phone] Reason for Visit * Reason Onset Date Comments Precert Approved 10/01/2023 Cimzia 2 X 200M G/ML syringe kit Encounter Details Date Type Department Care Team (Late st Contact Info) Description 10/01/2023 Telephone Rheumatology [address] [place] [address] Shahzad Da Silva MD [address] [place] [address] [phone] Precert Approved (Cimzia 2 X 200MG/ML syri... Allergies No known active allergiesdocumented as of this encounter (statuses as of 10/10/2023) Medications Medication Sig Dispensed Refills Start Date End Date Status Certolizumab Pegol 2 X 200 MG/ML Subcutaneous Prefilled Syringe Kit (Cimzia) Inject 400 mg under the skin every 4 weeks. Dx code M06.09, pt does not need a starter dose and has been tested negative for TB already 2 mL 5 01/07/2023 Active Lisinopril 30 MG Oral Tablet Take 1 Tablet by mouth in the morning. 90 Tablet 3 03/01/2023 Active ProAir HFA 108 (90 Base) MCG/ACT Inhalation Aerosol Solution Inhale 2 Puffs by mouth every 4 hours as needed for Wheezing. 18 g 3 03/28/2023 Active Norethindrone 0.35 MG Oral TabletIndications:En counter for initial prescription of contraceptive pills Take [...] Take 4 Tablets by mouth daily for 7 days, THEN 3 Tablets daily for 7 days, THEN 2 Tablets daily for 7 days, THEN 1 Tablet daily for 7 days. 70 Tablet 0 09/20/2023 10/18/2023 Active documented as of this encounter (statuses as of 10/10/2023) Active Problems Problem Noted Date Diagnosed Date PTSD (post-traumatic stress disorder) 01/29/2023 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---have spontaneously bled -avoid estrogen containing OCP Prediabetes 10/29/2022 Overview: Per Prediabetes protocol Rheumatoid arthritis of [facility] sites without rheumatoid factor 10/10/2022 Depression with anxiety 09/24/2022 HTN, goal below 130/80 08/15/2021 Obesity, Class II, BMI 35-39.9, isolated (see ac tual BMI) 08/14/2021 Gastroesophageal reflux disease with esophagitis 03/21/2020 documented as of this encounter (statuses as of 10/10/2023) Resolved Problems Problem Noted Date Diagnosed Date Resolved Date Seronegative polyarthritis 08/09/2020 0 01/28/2023 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 Day Supply: 2ML / 28 DAYS Valid auth start date: 08/09/2023 Valid auth end date: 10/09/2024 Rx Insurance Info: RADHA GOETZ Reference #: [id number] [facility] * Telephone Encounter - Ni Cline LPN - 10/01/2023 10:28 AM EST Please prior auth Cimzia documented in this encounter Plan of Treatment Upcoming Encounters Date Type Department Care Team (Late st Contact Info) Description 10/18/2023 8:00 AM EST Imaging Radiology [facility] 1[facility] [address] [place] [place] [address] 11/08/2023 1:30 PM EDT Office Visit Rheumatology [address] [place] [address] Av Austin CRNP [address] [place] [address] [place] [address] 11/21/2023 9:40 AM EDT Office Visit Hepatology, [facility] [address] [place] [address] Vikki Louie DO [address] [place] [address] 05/04/2024 1:00 PM EDT Office Visit Gynecology/Obstetrics [facility] [address] [place] [address] Jaleesa Hess PA-C [address] [place] [address] Health Maintenance Due Date Last Done Comments [...] this encounter Medical Devices Implanted Type Area Golf Course Keeper Device Identifier Shelf Expiration Date Model / Serial / Lot Syr Pf [facility]ml [facility] - [id number] Implanted:Qty: 1 on 04/18/2023 by Chao King DO at OR [facility] N/A: Chest [employer] 10/14/2025 S220GH / / [id number] Syr Pf 2[facility] 100-300 - [id number] Implanted:Qty: 1 on 04/18/2023 by Chao King DO at OR [facility] [employer] [id number] 10/14/2025 S220GH / / [id number] documented as of this encounter Care Teams Sheeter Waxer Operator Relationship Specialty Start Date End Date Dayday Wahl MD [address] [place] [address] PCP - General Family Medicine 03/18/20 documented as of this encounter
--- OUTSIDE RECORDS SUMMARY | 2023-12-05 10:39 | External Medical Summary | Summary of Care ---
Author Name Unknown Organization [facility] Address [address] [place] [address] Phone [phone] Care Team Providers Care Clinical Program Consultant Name Role Phone Dayday Wahl MD Primary Care Provider [phone] Reason for Referral * Evaluate & Treat - Unlimited Visits (Within 10 days (routine)) - Pending Review Specialty Diagnoses / Procedures Referred By Gabriela boogie Referred To Contact Pharmacist / Pharmacy Diagnoses Seronegative rheumatoid arthritis (HCC) Av Quick CRNP [address] [place] [id number] Referral ID Status Reason Start Date Expiration Date Visits Requested Visits Authorized [id number] Pending Review Specialty Services Required 11/11/2023 99 99 Question Answer Referral Priority Within 10 days (routine) Where should this appointment be scheduled? [facility] Referring Provider Role: Specialist Specialty: Rheum [...] have her medication therapy managed by the [facility] ([facility]) per established policies, procedures, and protocols. I [...] understand that the service provided by the [facility] is voluntary and have informed patient that they can refuse the service at their discretion. I am aware that the [facility] will provide me with a copy of the patient encounter via my [place] [facility] [place] In-Basket. I authorize the [facility] to carry out these activities on my behalf. I consider this program to be a necessary part of the patient's medical care. Tamiko Foley [facility] Reason for Visit * Reason Onset Date Comments Precert Approved 11/08/2023 Ileanavoq Encounter Details Date Type Department Care Team (Late st Contact Info) Description 11/08/2023 Telephone Rhe[address] [place] [address] Av Quick CRNP [address] [facility] [place] [address] Precert Approved (Rinvoq) Allergies No known active allergiesdocumented as of this encounter (statuses as of 11/13/2023) Medications Medication Sig Dispensed Refills Start Date [...] days. 100 Tablet 0 11/08/2023 12/18/2023 Active documented as of this encounter (statuses as of 11/13/2023) Active Problems Problem Noted Date Diagnosed Date PTSD (post-traumatic stress disorder) 01/29/2023 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---have spontaneously bled -avoid estrogen containing OCP Prediabetes 10/29/2022 Overview: Per Prediabetes protocol Rheumatoid arthritis of [facility] sites without rheumatoid factor 10/10/2022 Depression with anxiety 09/24/2022 HTN, goal below 130/80 08/15/2021 Obesity, Class II, BMI 35-39.9, isolated (see ac tual BMI) 08/14/2021 Gastroesophageal reflux disease with esophagitis 03/21/2020 documented as of this encounter (statuses as of 11/13/2023) Resolved Problems Problem Noted Date Diagnosed Date Resolved Date Seronegative polyarthritis 08/09/2020 0 01/28/2023 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 Rheumatoid arthritis involvi ng multiple sites with positive rheumatoid factor 03/18/2020 08/09/20 20 documented as of this encounter (statuses as of 11/13/2023) Immunizations Name Administration Dates Next Due COVID-19 [...] encounter Miscellaneous Notes * Telephone Encounter - Tamiko Foley, [facility] - 11/11/2023 10:31 AM EDT Rheumatology Pre-Certification Request Medication/Disease State Information: Diagnosis: (M06.00) Seronegative rheumatoid arthritis Patient Age: [age] year old Medication/Dose/Route/Interval: Rinvoq: 15 mg once daily Site of Care: Self-Administered Insurance considerations: Non-[facility] commerical Previously Tried Therapy: Previously tried and resulted in inadequate response/therapeutic failure: Cimzia, Enbrel, Humira, Methotrexate, and Xeljanz Required Screening Information: Vaccination(s): Patient has [facility] PCP - plan in place for CDC/ACIP vaccination guidelines usingHealth Maintenance Topics, Best Practice Alerts, and Anticipatory Management Reports within EHR TB Testing: Completed under scans, care everywhere or epic Hepatitis B Screenings: Completed under scans, care everywhere or epic Hepatitis C Screenings: Completed under scans, care everywhere or epic No active, severe, and/or uncontrolled infection Reauthorization: No Rheumatology Office Information: Cleaner Carpet [employer] Upholstery: AV QUICK Rheumatology Pharmacist: Deo Vargas Rheumatology Pharmacist Appointment Request Department & Provider: Rheumatology [facility] [place] [[id number]] - Pharmacist Rheumatology [facility] [[id number]] Patient to be scheduled for visit type: Telephonic Medicine Visit [[id number]] Length of visit: 30 min Reason for visit: med education Time Frame: within 2-4 weeks Please route this encounter back to Rheum Pharmacist Refill Pool/Class [p [phone]] if unable to schedule patient after 3 attempts. Thank you and have a wonderful day, Tamiko Foley RPh * Telephone Encounter - Av Quick CRNP - 11/08/2023 1:53 PM EDT Rheumatology Education, Pre-Certification, and/or Pharmacist Co-Management Request Medication Education: yes Pre-Certification: [facility]: Pre-cert for Prednisone, DMARDs & IV/IM/SC Osteoporosis Meds (routeto rheumatology pharmacist pool p [phone]) Pharmacist Co-Management ([facility] ONLY; West select "no"): [...] [facility] per established policies, procedures, and protocols. I also certify that this referral may serve as an initiation of service for the management of drug therapy in the above noted patient. [facility] providers will be responsible for scheduling patient visits, obtaining appropriate laboratory studies, and adjusting medication management therapy per patient's need, in addition to those roles spelled out in the clinic policy, procedures, and drug management protocols. I understand that the service provided by the [facility] Clinic is voluntary and have informed patient that they can refuse the service at their discretion. I am aware that the [facility] Clinic will provide me with a copy of the patient encounter via my [place] [facility] [place] In-Basket. I authorize the [facility] to carryout these activities on my behalf. I consider this program to be a necessary part of the patient's medical care. ELPIDIO Gonzales documented in this encounter Plan of Treatment Upcoming Encounters Date Type Department Care Team (Late st Contact Info) Description 11/21/2023 9:40 AM EDT Office Visit Hepatology, [facility] [address] [place] [address] Vikki Louie DO [address] [place] [address] 02/14/2024 10:00 AM EDT Office Visit Rheumatology [address] [place] [phone] Av Quick CRNP [facility] [place] [address] 05/04/2024 1:00 PM EDT Office Visit Gynecology/Obstetrics [facility] [address] [place] [address] Jaleesa Hess PA-C [address] [place] [address] Scheduled Referrals Name Type Priority Associated Diagnoses Orde r Schedule PHARMACIST MEDS THERAPY MGMT REFERRAL OP Referral Within 10 days (routine) Seronegative rheumatoid arthritis (HCC) Ordered: 11/11/2023 Health Maintenance Due Date Last Done Comments HIV Screening 1996 Albumin/Creatinine Ratio 1999 Depression Screening 12/05/2022 12/05/2021 COVID-19 Vaccine ( season) 2023 10/05/2020, 09/07/2020 HbA1c 10/26/2023 10/25/2022 GFR 04/19/2024 04/19/2023, 11/2022, 02/11/2023, Additional history exists Mammogram 06/18/2024 06/18/2023, [...] this encounter Medical Devices Implanted Type Area Rehab Physician Device Identifier Shelf Expiration Date Model / Serial / Lot Syr Pf 2ml [facility] 100-300 - [id number] Implanted:Qty: 1 on 04/18/2023 by Chao King DO at OR [facility] N/A: Chest [facility] [employer] 10/14/2025 S220GH / / [id number] Syr Pf 2ml [employer] 100-300 - [id number] Implanted:Qty: 1 on 04/18/2023 by Caho King DO at OR [facility] [address] [employer] [id number] 10/14/2025 S220 / / [id number] documented as of this encounter Visit Diagnoses Diagnosis Seronegative rheumatoid arthritis (HCC)- Primary Rheumatoid arthritis documented in this encounter Care Teams Clinical Program Consultant Relationship Specialty Start Date End Date Dayday Wahl MD [address] [place] [address] PCP - General Family Medicine 03/18/20 documented as of this encounter
--- OUTSIDE RECORDS SUMMARY | 2023-12-05 10:39 | External Medical Summary | Summary of Care ---
Author Name Unknown Organization [facility] Address [address] [place] [address] Phone [phone] Care Team Providers Care Transmitter Operator Name Role Phone Dayday Wahl MD Primary Care Provider [phone] [phone] Reason for Visit * Reason Comments Rheum Follow Up Follow up - RA Encounter Details Date Type Department Care Team (Latest Contact Info) Description 09/20/2023 3:00 PM EST Office Visit Rheumatology [address] [place] [phone] Katty Quick CRNP [address] [place] [address] [place] [address] Inflammatory arthritis*; Encounter for long-term (current) use of medications; Generalized osteoarthritis Allergies No known active allergiesdocumented as of this encounter (statuses as of 09/23/2023) Medications Medication Sig Dispensed Refills Start Date [...] as of this encounter (statuses as of 09/23/2023) Active Problems Problem Noted Date Diagnosed Date PTSD (post-traumatic stress disorder) 01/29/2023 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---have spontaneously bled -avoid estrogen containing OCP Prediabetes 10/29/2022 Overview: Per Prediabetes protocol Rheumatoid arthritis of [facility] sites without rheumatoid factor 10/10/2022 Depression with anxiety 09/24/2022 HTN, goal below 130/80 08/15/2021 Obesity, Class II, BMI 35-39.9, isolated (see ac tual BMI) 08/14/2021 Gastroesophageal reflux disease with esophagitis 03/21/2020 documented as of this encounter (statuses as of 09/23/2023) Resolved Problems Problem Noted Date Diagnosed Date Resolved Date Seronegative polyarthritis 08/09/2020 0 01/28/2023 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 Rheumatoid arthritis involvi ng multiple sites with positive rheumatoid factor 03/18/2020 08/09/20 20 documented as of this encounter (statuses as of 09/23/2023) Immunizations Name Administration Dates Next Due COVID-19 mRNA, LNP-s, No Pre serve, 2-Dose Series (Moderna) 10/05/2020,09/07/2020 Hepatitis B, 20+ yrs 11/14/2020,06/18/2020,05/16 Seasonal Influenza, PF, 6 M & above, IM , (FluLaval or Fluzone) 05/16/2020 TDAP (age 10 and older)(Boostrix) 03/27/2021 documented as of this encounter Social History Tobacco Use Types Packs/Day Years Used Date Smoking Tobacco: Former Cigarettes 1 Q uit: 09/17/2002 Smokeless Tobacco: Never Tobacco [...] Sign Reading Time Taken Comments Blood Pressure - - Pulse - - Temperature 36.8 C (98.2 F) 09/20/2023 2:57 PM ES T Respiratory Rate - - Oxygen Saturation - - Inhaled Oxygen Concentration - - Weight 99.3 kg (219 lb) 09/20/2023 2:57 PM EST Height - - Body Mass Index 39.09 08/07/2023 11:02 AM EST documented in this encounter Patient Instructions * Patient Instructions* Katty Quick CRNP - 09/20/2023 3:43 PM EST 1. Update labs today then every 6 months 2. Continue Cimzia the contact clinic at 12 weeks to discuss benefit 3. Start taking Prednisone taper 4. Follow up 6 months 5. Contact clinic with any questions or Concerns documented in this encounter Progress Notes * Katty Quick CRNP - 09/20/2023 2:21 PM EST Date of last clinic visit reviewed: 10/25/2022 Current medication therapy: Cimzia Prior medication therapy: Kristi Mcclain (Fatigue, malaise) Date of last labs reviewed from 07/02/2023 CBC 01/29/2023 CMP Subjective: Patient seen today for further follow up evaluation of seronegative polyarthritis. Since the last visit she started back on Cimzia monthly and took her second dose the end of August. Due to insurance issues she was off of Cimzia for 3 months. Before she stopped Cimzia she had minimal aches and pains. She notes now her lower back radiating to her pelvis, shoulders, and knee's, and fingers are aching pain 3/10 today but after working 12 hour shifts it's an 8/10. She notes her Cymbalta was increased to 90 mg daily which improved pain for a month but has not been beneficial. She takes Ibuprofen or Tylenol as needed with minimal benefit. She notes she uses a heating pad at night that helps improve. She notes steps and uneven surfaces cause increased pain. Musculoskeletal ROS: . Abnormal: joint pain and back pain . AM stiffness (hours): 2 . Pain scale (0-10): 3 . Fatigue scale (0-10): 5 . Job status: working . Activities of daily living: some difficulty (Class II) . Specific ADLS: problem with: climbing stairs, arising from seated position, uneven ground Other ROS: . Constitutional: fatigue and trouble sleeping . Head normal . Eyes: normal . Ears, nose, throat, mouth: normal . Cardiovascular: normal . Respiratory: normal . Gastrointestinal: heartburn . Genitourinary: normal . Skin: normal . Neurologic: numbness and tingling hand and feet . Psychiatric: depressive symptoms . Endocrine: normal . Hematologic/lymphatic: normal . Allergic/immunologic: normal _ All other ROS reviewed and negative. Pertinent positives listed in HPI. Social History: Social History Tobacco Use Smoking status: Former Packs/day: 1 Types: Cigarettes Quit date: 09/17/2002 Years since quittin.0 Smokeless tobacco: Never Substance Use Topics Alcohol use: Yes Comment: rarely Vaping/E-Cigarette Use Vaping/E-Cigarette Use Never User Vaping/E-Cigarette Substances Vaping/E-Cigarette Devices Current Outpatient Medications Medication Sig Dispense Refill Certolizumab Pegol 2 X 200 MG/ML Subcutaneous Prefilled Syringe Kit (Elevate Digitala) Inject 400 mg under the skin every 4 weeks. Dx code M06.09, pt does not need a starter dose and has been tested negative for TB already 2 mL 5 Lisinopril 30 MG Oral Tablet Take 1 [...] daily for 7 days. 70 Tablet 0 No current facility-administered medications for this visit. X-ray L Spine 09/24/2022 FINDINGS Lumbar vertebral body heights maintained. Minimal anterolisthesis of L4 on L5. Mild degenerative changes with tiny multilevel osteophytes and potential slight scattered disc space loss. Mild posterior facet disease. Postoperative changes about the upper abdomen. IMPRESSION Minimal anterolisthesis of L4 on L5. Minimal/mild degenerative changes of the lumbar spine. Physical Exam: Temp 36.8 C (98.2 F) (Infrared ) | Wt 99.3 kg (219 lb) | BMI 39.09 kg/m | BSA 2.1 m General: alert, healthy, and no distress HENT: normocephalic, external ears normal, no mucosal erythema, no mucosal edema, moist mucosa, no oral ulcers Eye Exam: PERRL, EOMI, conjunctiva are pink and non-injected, sclera clear Neck: supple, no adenopathy, no bruits, thyroid normal size, non-tender, without nodularity Lymph: no palpable lymphadenopathy Heart: regular rate & rhythm, no murmur, and no gallops Lungs: clear to auscultation , no rales, wheezes or rhonchi Pulses: radial=2/4, dorsalis pedis=2/4 Abdomen: abdomen soft, non-tender, normal bowel sounds, and no masses or organomegaly Extremities: no edema, no clubbing, no cyanosis Neuro Exam: alert & oriented x 3 with fluent speech, no focal motor/sensory deficits, gait normal, reflexes normal and symmetric Skin: skin color, texture, turgor are normal, no rashes or significant lesions Musculoskeletal Exam: . Tenderness: Left PIP, lower back Assessment: (M19.90) Inflammatory arthritis (primary encounter diagnosis) (Z79.899) Encounter for long-term (current) use of medications Plan: CBC WITH WBC DIFFERENTIAL, CBC WITH WBC DIFFERENTIAL (M15.9) Generalized osteoarthritis Ms. Howard presents today with worsening joint pains in the shoulders, hands, knees, lower back and pelvis. She was off Cimzia for 3 months due to insurance since and has had 2 doses thus far. She hasnot sure that it is working very well at this point. On exam Left PIPs tenderness without synovitis. Discussed taking her 3rd dose of Cimzia to see if she has any benefit at 12 weeks. In the meantimewe will do a taper due to increased joint pains. We will get updated labs today then every 6 months. Discussed trying child care specialist for lower back sciatic pain. Discussed continuing Tylenol and ibuprofen as needed. Advised patient to contact clinic if next dose of Cimzia does not give her any benefit. Discussed the above in detail with the patient. All questions answered. Patient advised to hold any immunosuppressant medication if they are sick or on antibiotics. Labs ordered for monitoring for medication toxicity. Patient advised to contact the clinic with questions. Plan: Update labs today then every 3 months 2. Continue Cimzia the contact clinic at 12 weeks to discuss benefit 3. Start taking Prednisone taper 4. Follow up 6 months 5. Contact clinic with any questions or Concerns 6. Discussed the above in detail with the patient. All questions answered. CC ELPIDIO Martinez Department of Rheumatology The patient was discussed with me. I agree with the findings and plan as documented by Katty MAGALLANES in this note. Shahzad Da Silva MD Rheumatology Department documented in this encounter Nursing Notes * Yane Steward LPN - 09/20/2023 2:57 PM EST Chief Complaint Patient presents with Rheum Follow Up Follow up - RA documented in this encounter Miscellaneous Notes * Addendum Note - Katty Quick CRNP - 09/23/2023 11:58 AM ESTAddended by: KATTY QUICK on: 09/23/2023 11:58 AM Modules accepted: Orders documented in this encounter Plan of Treatment Upcoming Encounters Date Type Department Care Team (Late st Contact Info) Description 10/18/2023 8:00 AM EST Imaging Radiology [facility] [address] [place] [address] 11/08/2023 1:30 PM EDT Office Visit Rheumatology [address] [place] [phone] Katty Quick CRNP [facility] [place] [address] 11/21/2023 9:40 AM EDT Office Visit Hepatology, [facility] [address] [place] [address] Vikki Louie DO [address] [place] [address] 05/04/2024 1:00 PM EDT Office Visit Gynecology/Obstetrics [facility] [address] [place] [address] Jaleesa Hess PA-C [address] [place] [address] Scheduled Orders Name Type Priority Associated Diagnoses Orde r Schedule CBC WITH WBC DIFFERENTIAL Lab Routine Encounter for long-term (current) use of medications Every 6 Months for 999 Occurrences starting 09/20/2023 until 09/20/2024, 1 completed COMPREHENSIVE METABOLIC PANEL Lab Routine Encounter for long-term (current) use of medications Every 6 Months for 999 Occurrences starting 09/23/2023 until 09/23/2024 Health Maintenance Due Date Last Done Comments Pneumococcal Vaccine: Pediatrics (0 to 5 Years) and At-Risk Patients (6 to 64 Years) (1 - PCV) 1987 HIV Screening 1996 Albumin/Creatinine Ratio 1999 COVID-19 Vaccine (3 - Moderna risk series) 11/02/2020 10/05/2020, 09/07/2020 Depression Screening 12/05/2022 12/05/2021 HbA1c 10/26/2023 10/25/2022 GFR 04/19/2024 04/19/2023, 08/0 11/2022, 02/11/2023, Additional history exists Mammogram 06/18/2024 [...] this encounter Medical Devices Implanted Type Area Manager Msw Device Identifier Shelf Expiration Date Model / Serial / Lot Syr Pf 2ml [facility] 100-300 - [id number] Implanted:Qty: 1 on 04/18/2023 by Chao King DO at OR [facility] [employer] [facility] [id number] 10/14/2025 [id number] / / [id number] documented as of this encounter Visit Diagnoses Diagnosis Inflammatory arthritis- Primary Unspecified inflammatory polyarthropathy Encounter for long-term (current) use of medications Encounter for long-term (current) use of other medications Generalized osteoarthritis Generalized osteoarthrosis, unspecified site documented in this encounter Care Teams Transmitter Operator Relationship Specialty Start Date End Date Dayday Wahl MD [address] [place] [address] PCP - General Family Medicine 03/18/20 documented as of this encounter"
--- OUTSIDE RECORDS SUMMARY | 2023-12-05 10:39 | External Medical Summary | Summary of Care ---
Author Name Unknown Organization [facility] Address [address] [place] [address] Phone [phone] Care Team Providers Care Canal Boat Captain Name Role Phone Dayday Wahl MD Primary Care Provider [phone] Reason for Referral * Evaluate & Treat - Unlimited Visits (Within 10 days (routine)) - Pending Review Specialty Diagnoses / Procedures Referred By Gabriela boogie Referred To Contact Pharmacist / Pharmacy Diagnoses Seronegative rheumatoid arthritis (HCC) Katty Quick CRNP [address] [place] [address] Referral ID Status Reason Start Date Expiration Date Visits Requested Visits Authorized [id number] Pending Review Specialty Services Required 11/11/2023 99 99 Question Answer Referral Priority Within 10 days (routine) Where should this appointment be scheduled? [facility] Referring Provider Role: Specialist Specialty: Rheum Reason [...] have her medication therapy managed by the [facility] Medication Therapy Disease Management Clinic ([facility]) per established policies, procedures, and protocols. [...] understand that the service provided by the [facility] is voluntary and have informed patient that they can refuse the service at their discretion. I am aware that the [facility] will provide me with a copy of the patient encounter via my [employer] In-Basket. I authorize the [facility] to carry out these activities on my behalf. I consider this program to be a necessary part of the patient's medical care. Tamiko Foley [facility] Reason for Visit * Reason Onset Date Comments Medication Pre-auth 11/08/2023 Rinvoq Encounter Details Date Type Department Care Team (Late st Contact Info) Description 11/08/2023 Telephone Rhe[address] [place] [phone] Katty Quick CRNP [address] [place] [address] [place] [address] Medication Pre-auth (Rinvoq) Allergies No known active allergiesdocumented as of this encounter (statuses as of 11/11/2023) Medications Medication Sig Dispensed Refills Start Date [...] as of this encounter (statuses as of 11/11/2023) Active Problems Problem Noted Date Diagnosed Date PTSD (post-traumatic stress disorder) 01/29/2023 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 - 11/11/2023 10:31 AM EDT Rheumatology Pre-Certification [...] uncontrolled infection Reauthorization: No Rheumatology Office Information: Media Relations Director: KATTY QUICK Rheumatology Pharmacist: Deo Vargas Rheumatology Pharmacist Appointment Request Department & Provider: Rheumatology [facility] [place] [[id number]] - Pharmacist Rheumatology [facility] [[id number]] Patient to be scheduled for visit type: Telephonic Medicine Visit [[id number]] Length of visit: 30 min Reason for visit: med education Time Frame: within 2-4 weeks Please route this encounter back to Rheum Pharmacist Refill Pool/Class [p [phone]] if unable to schedule patient after 3 attempts. Thank you and have a wonderful day, Tamiko Foley RP * Telephone Encounter - Katty Quick CRNP - 11/08/2023 1:53 PM EDT Rheumatology Education, Pre-Certification, and/or Pharmacist Co-Management Request Medication Education: yes Pre-Certification: [facility]: Pre-cert for Prednisone, DMARDs & IV/IM/SC Osteoporosis Meds (routeto rheumatology pharmacist pool p [phone]) Pharmacist Co-Management ([facility] ONLY; [place] select "no"): [...] [facility]) per established policies, procedures, and protocols. I also certify that this referral may serve as an initiation of service for the management of drug therapy in the above noted patient. [facility] providers will be responsible for scheduling patient visits, obtaining appropriate laboratory studies, and adjusting medication management therapy per patient's need, in addition to those roles spelled out in the clinic policy, procedures, and drug management protocols. I understand that the service provided by the [facility] Clinic is voluntary and have informed patient that they can refuse the service at their discretion. I am aware that the [facility] Clinic will provide me with a copy of the patient encounter via my [employer] In-Basket. I authorize the [facility] Clinic to carryout these activities on my behalf. I consider this program to be a necessary part of the patient's medical care. ELPIDIO Gonzales documented in this encounter Plan of Treatment Upcoming Encounters Date Type Department Care Team (Late st Contact Info) Description 11/21/2023 9:40 AM EDT Office Visit Hepatology, [facility] [address] [place] [address] Vikki Louie DO [address] [place] [address] 02/14/2024 10:00 AM EDT Office Visit Rheumatology [address] [place] [phone] Katty Quick CRNP [address] [place] [address] [place] [address] 05/04/2024 1:00 PM EDT Office Visit Gynecology/Obstetrics [facility] [address] [place] [address] Jaleesa Hess PA-C [address] [place] [address] Scheduled Referrals Name Type Priority Associated Diagnoses [...] this encounter Medical Devices Implanted Type Area Scheduling Agent Device Identifier Shelf Expiration Date Model / Serial / Lot Syr Pf 2ml [employer] 100-300 - [id number] Implanted:Qty: 1 on 04/18/2023 by Chao King DO at OR [facility] N/A: Chest [facility] [employer] 10/14/2025 S220GH / / [id number] Syr Pf 2ml [employer] 100-300 - [id number] Implanted:Qty: 1 on 04/18/2023 by Chao King DO at OR [facility] [employer] [id number] 10/14/2025 S220 / / [id number] documented as of this encounter Visit Diagnoses Diagnosis Seronegative rheumatoid arthritis (HCC)- Primary Rheumatoid arthritis documented in this encounter Care Teams Canal Boat Captain Relationship Specialty Start Date End Date Dayday Wahl MD [address] [place] [address] PCP - General Family Medicine 03/18/20 documented as of this encounter
--- OUTSIDE RECORDS SUMMARY | 2023-12-05 10:39 | External Medical Summary | Summary of Care ---
Author Name Unknown Organization [facility] Address [address] [place] [address] Phone [phone] Care Team Providers Care Plc Engineer Name Role Phone Dayday Wahl MD Primary Care Provider [phone] Reason for Visit * Reason Onset Date Comments Precert Approved 10/01/2023 Cimzia 2 X 200M G/ML syringe kit Encounter Details Date Type Department Care Team (Late st Contact Info) Description 10/01/2023 Telephone [address]umatology [address] [place] [address] Shahzad Da Silva MD [address] [place] [phone] Precert Approved (Cimzia 2 X 200MG/ML syri... [...] Overview: Per Prediabetes protocol Rheumatoid arthritis of [facility] sites without rheumatoid factor 10/10/2022 [...] as of this encounter Miscellaneous Notes * Addendum Note - Kathryn Steward LPN - 10/10/2023 3:15 PM ESTAddended by: KATHRYN STEWARD on: 10/10/2023 03:15 PM Modules accepted: Orders * Telephone Encounter - Kathryn Steward LPN - 10/10/2023 3:12 PM EST Cimzia 2 X 200MG/ML syringe kit How Prescribed(directions/sig): Inject 400 mg under the skin every 4 weeks. Day Supply: 2ML / 28 DAYS Valid auth start date: 08/09/2023 Valid auth end date: 10/09/2024 Rx Insurance Info: RDAHA GOETZ Reference #: [id number] [facility] Please sign Rx * Telephone Encounter - Ni Cline LPN - 10/01/2023 10:28 AM EST Please prior auth Cimzia documented in this encounter Plan of Treatment Upcoming Encounters Date Type Department Care Team (Late st Contact Info) Description 10/18/2023 8:00 AM EST Imaging Radiology [address] [place] [address] 11/08/2023 1:30 PM EDT Office Visit Rheumatology [address] [place] [phone] [place] CRNP [facility] [place] [address] 11/21/2023 9:40 AM EDT Office Visit Hepatology, [facility] [address] [place] [address] Vikki Louie DO [address] [place] [address] 05/04/2024 1:00 PM EDT Office Visit Gynecology/Obstetrics [facility] [address] [place] [address] Jaleesa Hess PA-C [address] [place] [address] Health Maintenance Due Date Last Done Comments Pneumococcal Vaccine: Pediatrics (0 to 5 Years) and At-Risk Patients (6 to 64 Years) (1 of 2 - PCV) 1987 HIV Screening 1996 Albumin/Creatinine Ratio 1999 COVID-19 Vaccine (3 - Moderna risk series) 11/02/2020 10/05/2020, 09/07/2020 Depression Screening 12/05/2022 12/05/2021 HbA1c 10/26/2023 10/25/2022 GFR 04/19/2024 04/19/2023, 11/2022, [...] this encounter Medical Devices Implanted Type Area Woods Manager Device Identifier Shelf Expiration Date Model / Serial / Lot Syr Pf 2ml [employer] 100-300 - [id number] Implanted:Qty: 1 on 04/18/2023 by Chao King DO at OR [facility] N/A: Chest [employer] 10/14/2025 S220GH / / [id number] Syr Pf 2ml [employer] 100-300 - [id number] Implanted:Qty: 1 on 04/18/2023 by Chao King DO at OR [facility] [employer] [facility] [id number] 10/14/2025 S220 / / [id number] documented as of this encounter Care Teams Plc Engineer Relationship Specialty Start Date End Date Dayday Wahl MD [address] [place] [address] PCP - General Family Medicine 03/18/20 documented as of this encounter
--- OUTSIDE RECORDS SUMMARY | 2023-12-05 10:39 | External Medical Summary | Summary of Care ---
Author Name Unknown Organization [facility] Address [address] [place] [address] Phone [phone] Care Team Providers Care Mat Roller Name Role Phone Dayday Wahl MD Primary Care Provider [phone] Reason for Visit * Reason Onset Date Comments Appointment 10/15/2023 Encounter Details Date Type Department Care Team (Late st Contact Info) Description 10/15/2023 Telephone Radiology [address] [place] [address] Rosemary Aguila TECH Appointment Allergies No known active allergiesdocumented as of this encounter (statuses as of 10/15/2023) Medications Medication Sig Dispensed Refills Start Date [...] days. 70 Tablet 0 09/20/2023 10/18/2023 Active LORazepam 0.5 MG Oral Tablet (Ativan) Take 1 Tablet by mouth as needed for Anxiety or Other (MRI). Take 1 tablet by mouth 30 minutes before MRI. Repeat once if needed 2 Tablet 0 10/08/2023 Active Certolizumab Pegol 2 X 200 MG/ML Subcutaneous Prefilled Syringe Kit (Cimzia) Inject 400 mg under the skin every 4 weeks. Dx code M06.09 2 mL 5 10/11/2023 Active documented as of this encounter (statuses as of 10/15/2023) Active Problems Problem Noted Date Diagnosed Date PTSD (post-traumatic stress disorder) 01/29/2023 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---have spontaneously bled -avoid estrogen containing OCP Prediabetes 10/29/2022 Overview: Per Prediabetes protocol Rheumatoid arthritis of [facility] sites without rheumatoid factor 10/10/2022 Depression with anxiety 09/24/2022 HTN, goal below 130/80 08/15/2021 Obesity, Class II, BMI 35-39.9, isolated (see ac tual BMI) 08/14/2021 Gastroesophageal reflux disease with esophagitis 03/21/2020 documented as of this encounter (statuses as of 10/15/2023) Resolved Problems Problem Noted Date Diagnosed Date Resolved Date Seronegative polyarthritis 08/09/2020 0 01/28/2023 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 Rheumatoid arthritis involvi ng multiple sites with positive rheumatoid factor 03/18/2020 08/09/20 20 documented as of this encounter (statuses as of 10/15/2023) Immunizations Name Administration Dates Next Due COVID-19 [...] Description 10/18/2023 8:00 AM EST Imaging Radiology [address] [place] [address] 11/08/2023 1:30 PM EDT Office Visit Rheumatology [address] [place] [phone] Av Austin CRNP [address] [place] [address] 11/21/2023 9:40 AM EDT Office Visit Hepatology, [facility] [address] [place] [address] Vikki Louie DO [address] [place] [address] 05/04/2024 1:00 PM EDT Office Visit Gynecology/Obstetrics [facility] [address] [place] [address] Jaleesa Hess PA-C [address] [place] [address] Health Maintenance Due Date Last Done Comments Pneumococcal Vaccine: Pediatrics (0 to 5 Years) and At-Risk Patients (6 to 64 Years) (1 of 2 - PCV) 1987 HIV Screening 1996 Albumin/Creatinine Ratio 1999 COVID-19 Vaccine (3 - Moderna risk series) 11/02/2020 10/05/2020, 09/07/2020 Depression Screening 12/05/2022 12/05/2021 HbA1c 10/26/2023 10/25/2022 GFR 04/19/2024 04/19/2023, 0811/2022, [...] this encounter Medical Devices Implanted Type Area Skull Grinder Device Identifier Shelf Expiration Date Model / Serial / Lot Syr Pf 2ml Embospheres 100-300 - [id number] Implanted:Qty: 1 on 04/18/2023 by Chao King DO at OR [facility] N/A: Chest [employer] 10/14/2025 [id number] / / [id number] Syr Pf 2ml Embospheres 100-300 - [id number] Implanted:Qty: 1 on 04/18/2023 by Chao King DO at OR [facility] [employer] [id number] 10/14/2025 S220 / / [id number] documented as of this encounter Care Teams Mat Roller Relationship Specialty Start Date End Date Dayday Wahl MD [address] [facility] [place] [address] PCP - General Family Medicine 03/18/20 documented as of this encounter
--- OUTSIDE RECORDS SUMMARY | 2023-12-05 10:39 | External Medical Summary | Summary of Care ---
Author Name Unknown Organization [facility] Address [address] [place] [address] Phone [phone] Care Team Providers Care Economist Research Assistant Name Role Phone Dayday Wahl MD Primary Care Provider [phone] Reason for Visit * Reason Comments Rheum Follow Up Recheck RA Encounter Details Date Type Department Care Team (Late st Contact Info) Description 11/08/2023 1:30 PM EDT Office Visit Rheumatology [address] [place] [phone] Av [place] CRNP [address] [place] [address] [place] [address] Seronegative rheumatoid arthritis (HCC)*; Encounter for long-term (current) use of medications; Inflammatory arthritis; Generalized osteoarthritis; Spondyloarthropathy Allergies No known active allergiesdocumented as of this encounter (statuses as of 11/08/2023) Medications Medication Sig Dispensed Refills Start Date End Date Status Lisinopril 30 MG Oral Tablet Take 1 Tablet by mouth in the morning. 90 Tablet 3 03/01/2023 Active ProAir HFA 108 (90 Base) MCG/ACT Inhalation Aerosol Solution Inhale 2 Puffs by mouth every 4 hours as needed for Wheezing. 18 g 3 03/28/2023 Active Norethindrone 0.35 MG Oral TabletIndications: Encounter for initial prescription of contraceptive pills Take [...] for 10 days. 100 Tablet 0 11/08/2023 12/18/19 24 Active LORazepam 0.5 MG Oral Tablet (Ativan) Take 1 Tablet by mouth as needed for Anxiety or Other (MRI). Take 1 tablet by mouth 30 minutes before MRI. Repeat once if needed 2 Tablet 0 10/08/2023 11/08/19 24 Discontinued Certolizumab Pegol 2 X 200 MG/ML Subcutaneous Prefilled Syringe Kit (Cimzia) Inject 400 mg under the skin every 4 weeks. 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---have spontaneously bled -avoid estrogen containing OCP Prediabetes 10/29/2022 Overview: Per Prediabetes protocol Rheumatoid arthritis of [facility] sites without rheumatoid factor 10/10/2022 Depression with anxiety 09/24/2022 HTN, goal below 130/80 08/15/2021 Obesity, Class II, BMI 35-39.9, isolated (see ac tual BMI) 08/14/2021 Gastroesophageal reflux disease with esophagitis 03/21/2020 documented as of this encounter (statuses as of 11/08/2023) Resolved Problems Problem Noted Date Diagnosed Date Resolved Date Seronegative polyarthritis 08/09/2020 0 01/28/2023 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 Rheumatoid arthritis involvi ng multiple sites with positive rheumatoid factor 03/18/2020 08/09/20 20 documented as of this encounter (statuses as of 11/08/2023) Immunizations Name Administration Dates Next Due COVID-19 [...] Sign Reading Time Taken Comments Blood Pressure 130/94 11/08/2023 1:00 PM EDT Pulse - - Temperature 36.9 C (98.4 F) 11/08/2023 1:00 PM ED T Respiratory Rate - - Oxygen Saturation - - Inhaled Oxygen Concentration - - Weight 103 kg (227 lb) 11/08/2023 1:00 PM EDT Height - - Body Mass Index 40.52 08/07/2023 11:02 AM EST documented in this encounter Patient Instructions * Patient Instructions* Av Austin CRNP - 11/08/2023 1:30 PM EDT Update labs (CBC, CMP, Lipid) 1 month after starting Rinvoq then every 3 months. Lipid panel every 6 months Discontinue Cimzia Follow up 3 months Contact clinic with any questions or concerns Upadacitinib Extended Release Oral Tablet Brands: Rinvoq Uses This medicine is used for the following purposes: arthritis inflammatory bowel disease skin inflammation skin rash Instructions Swallow the medicine without crushing or chewing it. This medicine may be taken with or without food. This medicine will work best if you take it at about the same time every day. Store at room temperature or in the refrigerator. Do not freeze. Keep the medicine away from heat and light. Store in original bottle, tightly closed. Avoid grapefruit and grapefruit juice while on this medicine. It is important that you keep taking each dose of this medicine on time even if you are feeling well. If you forget to take a dose on time, take it as soon as you remember. If it is almost time for thenext dose, do not take the missed dose. Return to your normal schedule. Do not take 2 doses at one time. Drug interactions can change how medicines work or increase risk for side effects. Tell your healthcare providers about all medicines taken. Include prescription and ivtk-ouh-neunxve medicines, vitamins, and herbal medicines. Speak with your doctor or pharmacist before starting or stopping any medicine. Tell your doctor if symptoms do not get better or if they get worse. Contact your healthcare provider if you repeatedly see tablets or parts of tablets in the stool. Keep all appointments for medical exams and tests while on this medicine. Cautions Tell your doctor and pharmacist if you ever had an allergic reaction to a medicine. Your doctor should check you for tuberculosis (TB) before you start this medicine and while you areusing it. Tell your doctor if you are being treated for TB or any other infection. Some patients on this medicine have developed severe, life-threatening infections. Please speak with your doctor about the risks and benefits of using this medicine. This medicine may increase the risk of cancer. Ask your doctor about the benefits and risks. This medicine is associated with an increased risk of serious heart problems, heart attack, and stroke. Please speak with your doctor about the risks and benefits of using this medicine. Contact yourdoctor immediately if you experience chest pain or difficulty breathing. Do not use the medication any more than instructed. Avoid smoking while on this medicine. Smoking may increase your risk for serious side effects. This medicine may reduce your body's ability to fight infections. Avoid contact with people with colds, flu or other infections. Contact your doctor if you develop fever, cough, sore throat, or chills. Speak with your health care provider before receiving any vaccinations. Do not breastfeed while on this medicine. You may safely start 6 days after stopping treatment. This medicine can hurt a new baby in the womb. If you become while on this medicine, tell your doctor immediately. Your doctor may switch you to a different medicine. Women must use reliable forms of control while using this medicine and for 28 days after stopping to prevent . If you have had a heart attack or a stroke within the past 6 months, talk to your doctor before using this medicine. Do not share this medicine with anyone who has not been prescribed this medicine. Some patients have serious side effects from this medicine. Ask your pharmacist to show you the information from the Food and Drug Administration (FDA) and discuss it with you. Side Effects The following is a list of some common side effects from this medicine. Please speak with your doctor about what you should do if you experience these or other side effects. nausea Call your doctor or get medical help right away if you notice any of these more serious side effects: severe or persistent abdominal pain chest pain cough that does not go away dizziness fainting fever or chills fast or irregular heart beats sudden leg pain, swelling, warmth or redness signs of liver damage (such as yellowing of eye or skin, dark urine, or unusual tiredness) unusual growth or lump on the neck pale or blue skin, lips or fingernails rapid breathing shortness of breath skin changes - a darker area with uneven edges or coloring change in skin color skin sores sweating at night yeast infection of mouth increased urinary frequency urinary tract infections difficulty or discomfort urinating severe or persistent vomiting unexpected or extreme weight loss A few people may have an allergic reaction to this medicine. Symptoms can include difficulty breathing, skin rash, itching, swelling, or severe dizziness. If you notice any of these symptoms, seek medical help quickly. documented in this encounter Progress Notes * Av Austin CRNP - 11/08/2023 12:55 PM EDT Date of last clinic visit reviewed: 09/20/2023 Current medication therapy: Cimzia Prior medication therapy: MTX, Humira, Enbrel, Xeljanz Date of last labs reviewed from 09/20/2023 CBC Subjective: Patient seen today for further follow up evaluation of seronegative polyarthritis, spondyloarthropathy, OA. Since the last visit she continues on Cimzia and does not fell like she is getting benefit.She notes her hips and her back are very achy intermittently. She notes when she is sitting it's not so bad. She states the mornings are worse and it takes hours to get moving. She is having trouble getting out of bed and standing. She reports that Ibuprofen helps improve pains. She states her painis 5/10. She had liver lesions in the past and was treated. She reports she benefitted from Xeljanzin the past but had developed liver lesions. Musculoskeletal ROS: . Abnormal: joint pain, joint swelling, back pain, and neck pain . AM stiffness (hours): 3 . Pain scale (0-10): 5 . Fatigue scale (0-10): 7 . Job status: working . Activities of daily living: some difficulty (Class II) . Specific ADLS: problem with: arising from seated position, grasping Other ROS: . Constitutional: fatigue and trouble sleeping . Head headaches . Eyes: normal . Ears, nose, throat, mouth: normal . Cardiovascular: normal . Respiratory: normal . Gastrointestinal: normal . Genitourinary: normal . Skin: normal . Neurologic: normal . Psychiatric: normal . Endocrine: normal . Hematologic/lymphatic: normal . Allergic/immunologic: normal Social History: Social History Tobacco Use Smoking status: Former Current packs/day: 0.00 Types: Cigarettes Quit date: 09/17/2002 Years since quittin.1 Smokeless tobacco: Never Substance Use Topics Alcohol [...] daily for 10 days. 100 Tablet 0 No current facility-administered medications for this visit. Physical Exam: BP 130/94 | Temp 36.9 C (98.4 F) (Infrared ) | Wt 103 kg (227 lb) | BMI 40.52 kg/m | BSA 2.14m General: alert, healthy, and no distress HENT: normocephalic, external ears normal, no mucosal erythema, no mucosal edema, moist mucosa, no oral ulcers Eye Exam: PERRL, EOMI, conjunctiva are pink and non-injected, sclera clear Heart: regular rate & rhythm, no murmur, and no gallops Lungs: clear to auscultation , no rales, wheezes or rhonchi Abdomen: abdomen soft, non-tender, normal bowel sounds, and no masses or organomegaly Extremities: no edema, no clubbing, no cyanosis Neuro Exam: alert & oriented x 3 with fluent speech, no focal motor/sensory deficits, gait normal, reflexes normal and symmetric Skin: skin color, texture, turgor are normal, no rashes or significant lesions, dryness noted on bilateral elbows Musculoskeletal Exam: Crepitus knees R>L, tenderness of right 2nd PIP, synovitis noted to bilateral PIP Assessment: (M19.90) Inflammatory arthritis (primary encounter diagnosis) (Z79.899) Encounter for long-term (current) use of medications Plan: LIPID PANEL WITH DIRECT LDL IF TG IS HIGH, CBC WITH WBC DIFFERENTIAL, COMPREHENSIVE METABOLIC PANEL (M15.9) Generalized osteoarthritis (M47.819) Spondyloarthropathy (M06.00) Seronegative rheumatoid arthritis (HCC) (primary encounter diagnosis) Mrs. Howard seems to have lost benefit from Cimzia. She has increased joint pains and finger swelling. Given she had benefit from Xeljanz in the past consider starting Rinvoq. Authorization initiated.We will get updated labs 1 month after starting medication then every 3 months. We will get updatedlipid panel in 1 month then 6 months. Benefit and side effects of Rinvoq discussed, education provided on checkout. We will start prednisone taper while switching medications due to increased joint pains and swelling. Patient advised to hold any immunosuppressant medication if they are sick or on antibiotics. Labs ordered for monitoring for medication toxicity. Patient advised to contact the clinic with questions. Plan: Update labs (CBC, CMP, Lipid) 1 month after starting Rinvoq then every 3 months. Lipid panel every 6 months Discontinue Cimzia Start Prednisone taper Follow up 3 months Contact clinic with any questions or concerns Discussed the above in detail with the patient. All questions answered. CC ELPIDIO Martinez Department of Rheumatology The patient was discussed with me. I agree with the findings and plan as documented by Av MAGALLANES in this note. Shahzad Da Silva MD Rheumatology Department documented in this encounter Nursing Notes * Ni Cline LPN - 11/08/2023 12:59 PM EDT Chief Complaint Patient presents with Rheum Follow Up Recheck RA documented in this encounter Plan of Treatment Upcoming Encounters Date Type Department Care Team (Late st Contact Info) Description 11/21/2023 9:40 AM EDT Office Visit Hepatology, [facility] [address] [place] [address] Vikki Louie DO [address] [place] [address] 02/14/2024 10:00 AM EDT Office Visit Rheumatology [address] [place] [phone] Av Austin CRNP [address] [place] [address] [place] [address] 05/04/2024 1:00 PM EDT Office Visit Gynecology/Obstetrics [facility] [address] [place] [address] Jaleesa Hess PA-C [address] [place] [address] Scheduled Orders Name Type Priority Associated Diagnoses Orde r Schedule LIPID PANEL WITH DIRECT LDL IF TG IS HIGH Lab Routine Encounter for long-term (current) use of medications Every 6 Months for 3 Occurrences starting 11/08/2023 until 11/07/2024 CBC WITH WBC DIFFERENTIAL Lab Routine Encounter for long-term (current) use of medications Every 3 Months for 999 Occurrences starting 11/08/2023 until 11/07/2024 COMPREHENSIVE METABOLIC PANEL Lab Routine Encounter for long-term (current) use of medications Every 3 Months for 999 Occurrences starting 11/08/2023 until 11/07/2024 Health Maintenance Due Date Last Done Comments [...] this encounter Medical Devices Implanted Type Area Singe Machine Operator Device Identifier Shelf Expiration Date Model / Serial / Lot Syr Pf 2ml Embospheres 100-300 - [id number] Implanted:Qty: 1 on 04/18/2023 by Chao King DO at OR [facility] N/A: Chest [employer] 10/14/2025 S220 / / [id number] Syr Pf 2ml Embospheres 100-300 - [id number] Implanted:Qty: 1 on 04/18/2023 by Chao King DO at OR [facility] [employer] [id number] 10/14/2025 S220 / / [id number] documented as of this encounter Visit Diagnoses Diagnosis Seronegative rheumatoid arthritis (HCC)- Primary Rheumatoid arthritis Encounter for long-term (current) use of medications Encounter for long-term (current) use of other medications Inflammatory arthritis Unspecified inflammatory polyarthropathy Generalized osteoarthritis Generalized osteoarthrosis, unspecified site Spondyloarthropathy Spondylosis of unspecified site without mention of myelopathy documented in this encounter Care Teams Economist Research Assistant Relationship Specialty Start Date End Date Dayday Wahl MD [address] [place] [address] PCP - General Family Medicine 03/18/20 documented as of this encounter"
--- OUTSIDE RECORDS SUMMARY | 2023-12-05 10:39 | External Medical Summary | Summary of Care ---
Author Name Unknown Organization [facility] Address [address] [place] [address] Phone [phone] Care Team Providers Care Wheat Inspector Name Role Phone Dayday Wahl MD Primary Care Provider [phone] [phone] Reason for Referral * Evaluate & Treat - Unlimited Visits (Within 10 days (routine)) - Pending Review Specialty Diagnoses / Procedures Referred By Gabriela boogie Referred To Contact Pharmacist / Pharmacy Diagnoses Seronegative rheumatoid arthritis (HCC) Av Quick CRNP [address] [place] [id number] Referral ID Status Reason Start Date Expiration Date Visits Requested Visits Authorized [id number] Pending Review Specialty Services Required 11/11/2023 99 99 Question Answer Referral Priority Within 10 days (routine) Where should this appointment be scheduled? [facility] Referring Provider Role: Specialist Specialty: Rheum Reason [...] have her medication therapy managed by the [facility] Medication Therapy Disease Management Clinic ([facility]) per established policies, procedures, and protocols. [...] understand that the service provided by the [facility] is voluntary and have informed patient that they can refuse the service at their discretion. I am aware that the [facility] will provide me with a copy of the patient encounter via my Curse In-Basket. I authorize the [facility] to carry out these activities on my behalf. I consider this program to be a necessary part of the patient's medical care. Tamiko Foley [facility] Reason for Visit * Reason Onset Date Comments Precert Approved 11/08/2023 Ileanavoq Encounter Details Date Type Department Care Team (Late st Contact Info) Description 11/08/2023 Telephone Rheumatology [address] [place] [address] Av Quick CRNP [address] [facility] [place] [address] Precert Approved (Rinvoq) Allergies No known active [...] Overview: Per Prediabetes protocol Rheumatoid arthritis of [facility] sites without rheumatoid factor 10/10/2022 Depression with [...] encounter Miscellaneous Notes * Telephone Encounter - Magda Monet CPhT - 11/14/2023 8:03 AM EDT Patient Phone Numbers Sent Chirpifyt message to patient to schedule [facility] appointment for Medication Education. Appointment scheduled as noted below. 12/09/2023 Thank you, Magda Monet CPhT-Adv Program Analyst [employer] [facility] ([facility]) (formerly Telepharmacy) 11/14/2023,8:04 AM * Telephone Encounter - Tamiko Foley [facility] - 11/11/2023 10:31 AM EDT Rheumatology Pre-Certification Request Medication/Disease State Information: Diagnosis: (M06.00) Seronegative rheumatoid arthritis Patient Age: [age] year old Medication/Dose/Route/Interval: Rinvoq: 15 mg once daily Site of Care: Self-Administered Insurance considerations: Non-[facility] commerical Previously Tried Therapy: Previously tried and resulted in inadequate response/therapeutic failure: Cimzia, Enbrel, Humira, Methotrexate, and Xeljanz Required Screening Information: Vaccination(s): Patient has [facility] PCP - plan in place for CDC/ACIP vaccination guidelines usingHealth Maintenance Topics, Best Practice Alerts, and Anticipatory Management Reports within EHR TB Testing: Completed under scans, care everywhere or epic Hepatitis B Screenings: Completed under scans, care everywhere or epic Hepatitis C Screenings: Completed under scans, care everywhere or epic No active, severe, and/or uncontrolled infection Reauthorization: No Rheumatology Office Information: Inspector Penetrant: AV QUICK Rheumatology Pharmacist: Deo Vargas Rheumatology Pharmacist Appointment Request Department & Provider: Rheumatology [address] [[id number]] - Pharmacist Rheumatology [facility] [[id number]] Patient to be scheduled for visit type: Telephonic Medicine Visit [[id number]] Length of visit: 30 min Reason for visit: med education Time Frame: within 2-4 weeks Please route this encounter back to Rheum Pharmacist Refill Pool/Class [p [phone]] if unable to schedule patient after 3 attempts. Thank you and have a wonderful day, Tamiko Foley RPh * Telephone Encounter - Av Quick CRNP - 11/08/2023 1:53 PM EDT Rheumatology Education, Pre-Certification, and/or Pharmacist Co-Management Request Medication Education: yes Pre-Certification: [facility]: Pre-cert for Prednisone, DMARDs & IV/IM/SC Osteoporosis Meds (routeto rheumatology pharmacist pool p [phone]) Pharmacist Co-Management ([facility] ONLY; West select "no"): [...] [facility] per established policies, procedures, and protocols. I also certify that this referral may serve as an initiation of service for the management of drug therapy in the above noted patient. [facility] providers will be responsible for scheduling patient visits, obtaining appropriate laboratory studies, and adjusting medication management therapy per patient's need, in addition to those roles spelled out in the clinic policy, procedures, and drug management protocols. I understand that the service provided by the [facility] is voluntary and have informed patient that they can refuse the service at their discretion. I am aware that the [facility] Clinic will provide me with a copy of the patient encounter via my Curse In-Basket. I authorize the [facility] Clinic to carryout these activities on my behalf. I consider this program to be a necessary part of the patient's medical care. ELPIDIO Gonzales documented in this encounter Plan of Treatment Upcoming Encounters Date Type Department Care Team (Late st Contact Info) Description 11/21/2023 9:40 AM EDT Office Visit Hepatology, [facility] [address] [place] [address] Vikki Louie DO [address] [place] [address] 12/09/2023 10:30 AM EDT Telemedicine Rheumatology, [place] [address] [place] [address] Agc5, Pharmacist Rheumatology [address] [place] [address] 02/14/2024 10:00 AM EDT Office Visit Rheumatology [address] [place] [phone] Av Quick CRNP [address] [facility] [place] [address] 05/04/2024 1:00 PM EDT Office Visit Gynecology/Obstetrics [facility] [address] [place] [address] Jaleesa Hess PA-C [address] [place] [address] Scheduled Referrals Name Type Priority Associated Diagnoses Orde r Schedule PHARMACIST MEDS THERAPY MGMT REFERRAL OP Referral Within 10 days (routine) Seronegative rheumatoid arthritis (HCC) Ordered: 11/11/2023 Health Maintenance Due Date Last Done Comments HIV Screening 1996 Albumin/Creatinine Ratio 1999 Depression Screening 12/05/2022 12/05/2021 COVID-19 Vaccine ( season) 2023 10/05/2020, 09/07/2020 HbA1c 10/26/2023 10/25/2022 GFR 04/19/2024 04/19/2023, 08/0 [...] this encounter Medical Devices Implanted Type Area Validation Scientist Device Identifier Shelf Expiration Date Model / Serial / Lot Syr Pf 2ml Embospheres 100-300 - [id number] Implanted:Qty: 1 on 04/18/2023 by Chao King DO at OR [facility] N/A: Chest [employer] 10/14/2025 S220GH / / [id number] Syr Pf 2ml Embospheres 100-300 - [id number] Implanted:Qty: 1 on 04/18/2023 by Chao King DO at OR [facility] [employer] [id number] 10/14/2025 S220GH / / [id number] documented as of this encounter Visit Diagnoses Diagnosis Seronegative rheumatoid arthritis (HCC)- Primary Rheumatoid arthritis documented in this encounter Care Teams Wheat Inspector Relationship Specialty Start Date End Date Dayday Wahl MD [address] [facility] [place] [address] PCP - General Family Medicine 03/18/20 documented as of this encounter
--- OUTSIDE RECORDS SUMMARY | 2023-12-05 10:39 | External Medical Summary | Summary of Care ---
Author Name Unknown Organization [facility] Address [address] [place] [address] Phone [phone] Care Team Providers Care Rag Sorter And Cutter Name Role Phone Dayday Wahl MD Primary Care Provider [phone] [phone] Reason for Visit * Reason Onset Date Comments Precert Approved 10/01/2023 Cimzia 2 X 200M G/ML syringe kit Encounter Details Date Type Department Care Team (Late st Contact Info) Description 10/01/2023 Telephone [address]umatology [address] [place] [address] Shahzad Da Silva MD [address] [place] [address] [phone] Precert Approved (Cimzia 2 X 200MG/ML syri... [...] Overview: Per Prediabetes protocol [facility] without rheumatoid factor 10/10/2022 Depression [...] Rx Insurance Info: RADHA GOETZ Reference #: [id number] [facility] Please sign Rx * Telephone Encounter - Ni Cline LPN - 10/01/2023 10:28 AM EST Please prior auth Cimzia documented in this encounter Plan of Treatment Upcoming Encounters Date Type Department Care Team (Late st Contact Info) Description 10/18/2023 8:00 AM EST Imaging Radiology [address] [place] [address] 11/08/2023 1:30 PM EDT Office Visit Rheumatology [address] [place] [phone] Av Austin CRNP [facility] [place] [address] 11/21/2023 9:40 AM EDT Office Visit Hepatology, [facility] [address] [place] [address] Vikki Louie DO [address] [place] [address] 05/04/2024 1:00 PM EDT Office Visit Gynecology/Obstetrics [facility] [address] [place] [address] Jaleesa Hess PA-C [address] [place] [address] Health Maintenance Due Date Last Done Comments [...] this encounter Medical Devices Implanted Type Area Powder Carrier Device Identifier Shelf Expiration Date Model / Serial / Lot Syr Pf 2ml Embospheres 100-300 - [id number] Implanted:Qty: 1 on 04/18/2023 by Chao King DO at OR [facility] N/A: Chest [employer] 10/14/2025 S220GH / / [id number] Syr Pf 2ml Embospheres 100-300 - [id number] Implanted:Qty: 1 on 04/18/2023 by Chao King DO at [facility] [employer] [facility] [id number] 10/14/2025 S220 / / [id number] documented as of this encounter Care Teams Rag Sorter And Cutter Relationship Specialty Start Date End Date Dayday Wahl MD [address] [place] [address] PCP - General Family Medicine 03/18/20 documented as of this encounter
--- OUTSIDE RECORDS SUMMARY | 2023-12-05 10:39 | External Medical Summary | Summary of Care ---
Author Name Unknown Organization [facility] Address [address] [place] [address] Phone [phone] Care Team Providers Care Hand Outside Cutter Name Role Phone Dayday Wahl MD Primary Care Provider [phone] [phone] Reason for Visit * Reason Comments Rheum Follow Up Follow up - RA Encounter Details Date Type Department Care Team (Latest Contact Info) Description 09/20/2023 3:00 PM EST Office Visit Rheumatology [address] [place] [phone] Av Austin CRNP [address] [place] [address] [place] [address] Inflammatory arthritis*; Encounter for long-term (current) use of medications; Generalized osteoarthritis Allergies No known active allergiesdocumented as of this encounter (statuses as of 09/20/2023) Medications Medication Sig Dispensed Refills Start Date [...] as of this encounter (statuses as of 09/20/2023) Active Problems Problem Noted Date Diagnosed Date PTSD (post-traumatic stress disorder) 01/29/2023 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---have spontaneously bled -avoid estrogen containing OCP Prediabetes 10/29/2022 Overview: Per Prediabetes protocol Rheumatoid arthritis of [facility] sites without rheumatoid factor 10/10/2022 Depression with anxiety 09/24/2022 HTN, goal below 130/80 08/15/2021 Obesity, Class II, BMI 35-39.9, isolated (see ac tual BMI) 08/14/2021 Gastroesophageal reflux disease with esophagitis 03/21/2020 documented as of this encounter (statuses as of 09/20/2023) Resolved Problems Problem Noted Date Diagnosed Date Resolved Date Seronegative polyarthritis 08/09/2020 0 01/28/2023 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 Update labs today then every 6 months 2. Continue Cimzia the contact clinic at 12 weeks to discuss benefit 3. Start taking Prednisone taper 4. Follow up 6 months 5. Contact clinic with any questions or Concerns documented in this encounter Progress Notes * Av Austin CRNP - 09/20/2023 2:21 PM EST Date of last clinic visit reviewed: 10/25/2022 Current medication therapy: Cimzia Prior medication therapy: Kristi Mclcain (Fatigue, malaise) Date of last labs reviewed [...] X 200 MG/ML Subcutaneous Prefilled Syringe Kit (ChangeTipa) Inject 400 mg under the skin every [...] today then every 6 months. 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 Discussed continuing [...] up - RA documented in this encounter Plan of Treatment Upcoming Encounters Date Type Department Care Team (Late st Contact Info) Description 10/18/2023 8:00 AM EST Imaging Radiology [address], [address] [place] [address] 11/08/2023 1:30 PM EDT Office Visit Rheumatology [address] [place] [phone] Av Austin CRNP [address] [facility] [place] [address] 11/21/2023 9:40 AM EDT Office Visit Hepatology, [facility] [address] [place] [address] Vikki Louie DO [address] [place] [address] 05/04/2024 1:00 PM EDT Office Visit Gynecology/Obstetrics [facility] [address] [place] [address] Jaleesa Hess PA-C [address] [place] [address] Pending Results Name Type Priority Associated Diagnoses Date /Time CBC WITH WBC DIFFERENTIAL Lab Routine Encounter for long-term (current) use of medications 09/20/2023 3:49 PM EST Scheduled Orders Name Type Priority Associated Diagnoses Orde r Schedule CBC WITH WBC DIFFERENTIAL Lab Routine Encounter for long-term (current) use of medications Every 6 Months for 999 Occurrences starting 09/20/2023 until 09/20/2024 CBC WITH WBC DIFFERENTIAL Lab Routine Encounter for long-term (current) use of medications Every 6 Months for 999 Occurrences starting 09/20/2023 until 09/20/2024 Health Maintenance Due Date Last Done Comments [...] this encounter Medical Devices Implanted Type Area Clinical Material Handler Device Identifier Shelf Expiration Date Model / Serial / Lot Syr Pf 2ml Embospheres 100-300 - [id number] Implanted:Qty: 1 on 04/18/2023 by Chao King DO at OR [facility] [employer] [facility] [id number] 10/14/2025 S220GH / / [id number] documented as of this encounter Visit Diagnoses Diagnosis Inflammatory arthritis- Primary Unspecified inflammatory polyarthropathy Encounter for long-term (current) use of medications Encounter for long-term (current) use of other medications Generalized osteoarthritis Generalized osteoarthrosis, unspecified site documented in this encounter Care Teams Hand Outside Cutter Relationship Specialty Start Date End Date Dayday Wahl MD [address] [place] [address] PCP - General Family Medicine 03/18/20 documented as of this encounter"
--- OUTSIDE RECORDS SUMMARY | 2023-12-05 10:39 | External Medical Summary | Summary of Care ---
Author Name Unknown Organization [facility] Address [address] [place] [address] Phone [phone] Care Team Providers Care Pediatric Speech Therapist Name Role Phone Dayday Wahl MD Primary Care Provider [phone] [phone] Reason for Visit * Reason Onset Date Comments Precert Approved 10/01/2023 Cimzia 2 X 200M G/ML syringe kit Encounter Details Date Type Department Care Team (Late st Contact Info) Description 10/01/2023 Telephone Rheumatology [address] [place] [address] Myron Stinson MD [facility] [employer] [place], [place] [phone] Precert Approved (Cimzia 2 X 200MG/ML syri... Allergies No known active allergiesdocumented as of this encounter (statuses as of 10/11/2023) Medications Medication Sig Dispensed Refills Start Date [...] for 7 days. 70 Tablet 0 09/20/2023 Active Certolizumab Pegol 2 X 200 MG/ML Subcutaneous Prefilled Syringe Kit (Cimzia) Inject 400 mg under the skin every 4 weeks. Dx code M06.09 2 mL 5 10/11/2023 Active Certolizumab Pegol 2 X 200 MG/ML Subcutaneous Prefilled Syringe Kit (Cimzia) Inject 400 mg under the skin every 4 weeks. Dx code M06.09, pt does not need a starter dose and has been tested negative for TB already 2 mL 5 01/07/2023 4 Discontinue d(Refill) documented as of this encounter (statuses as of 10/11/2023) Active Problems Problem Noted Date Diagnosed Date PTSD (post-traumatic stress disorder) 01/29/2023 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---have spontaneously bled -avoid estrogen containing OCP Prediabetes 10/29/2022 Overview: Per Prediabetes protocol Rheumatoid arthritis of [facility] sites without rheumatoid factor 10/10/2022 Depression with anxiety 09/24/2022 HTN, goal below 130/80 08/15/2021 Obesity, Class II, BMI 35-39.9, isolated (see ac tual BMI) 08/14/2021 Gastroesophageal reflux disease with esophagitis 03/21/2020 documented as of this encounter (statuses as of 10/11/2023) Resolved Problems Problem Noted Date Diagnosed Date Resolved Date Seronegative polyarthritis 08/09/2020 0 01/28/2023 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 Rheumatoid arthritis involvi ng multiple sites with positive rheumatoid factor 03/18/2020 08/09/20 20 documented as of this encounter (statuses as of 10/11/2023) Immunizations Name Administration Dates Next Due COVID-19 [...] encounter Miscellaneous Notes * Addendum Note - Myron Stinson MD - 10/11/2023 7:49 AM ESTAddended by: MYRON STINSON on: 10/11/2023 07:49 AM Modules accepted: Orders * Telephone Encounter - Myron Stinson MD - 10/11/2023 7:49 AM EST signed * Addendum Note - Kathryn Steward LPN [...] Rx Insurance Info: RADHA GOETZ Reference #: [id number] [facility] Please sign Rx * Telephone Encounter - Ni Cline LPN - 10/01/2023 10:28 AM EST Please prior auth Cimzia documented in this encounter Plan of Treatment Upcoming Encounters Date Type Department Care Team (Late st Contact Info) Description 10/18/2023 8:00 AM EST Imaging Radiology [address] [place] [address] 11/08/2023 1:30 PM EDT Office Visit Rheumatology [address] [place] [address] Av Austin, ELPIDIO [address] [facility] [place] [address] 11/21/2023 9:40 AM EDT Office Visit Hepatology, [facility] [address] [place] [address] Vikki Louie DO [address] [place] [address] 05/04/2024 1:00 PM EDT Office Visit Gynecology/Ob[facility] [address] [place] [address] Jaleesa Hess PA-C [address] [place] [address] Health Maintenance Due Date Last Done Comments [...] this encounter Medical Devices Implanted Type Area Pan Puller Device Identifier Shelf Expiration Date Model / Serial / Lot Syr Pf 2ml Embospheres 100-300 - [id number] Implanted:Qty: 1 on 04/18/2023 by Chao King DO at OR [facility] N/A: Chest [employer] 10/14/2025 S220GH / / [id number] Syr Pf 2ml Embospheres 100-300 - [id number] Implanted:Qty: 1 on 04/18/2023 by Chao King DO at OR [facility] [employer] [id number] 10/14/2025 S220 / / [id number] documented as of this encounter Care Teams Pediatric Speech Therapist Relationship Specialty Start Date End Date Dayday Wahl MD [address] [place] [address] PCP - General Family Medicine 03/18/20 documented as of this encounter
--- OUTSIDE RECORDS SUMMARY | 2023-12-05 10:39 | External Medical Summary | Summary of Care ---
Author Name Unknown Organization [facility] Address [address] [place] [address] Phone [phone] Care Team Providers Care Assistant Operator Name Role Phone Dayday Wahl MD Primary Care Provider +1 [phone] Encounter Details Date Type Department Care Team (Late st Contact Info) Description 10/17/2023 Result Scan Unspecified Department <No scans attached> Allergies No known active allergiesdocumented as of this encounter (statuses as of 10/21/2023) Medications Medication Sig Dispensed Refills Start Date End Date Status Lisinopril 30 MG Oral Tablet Take 1 Tablet by mouth in the morning. 90 Tablet 3 03/01/2023 Active ProAir HFA 108 (90 Base) MCG/ACT Inhalation Aerosol Solution Inhale 2 Puffs by mouth every 4 hours as needed for Wheezing. 18 g 3 03/28/2023 Active Norethindrone 0.35 MG Oral TabletIndications:Enco unter for initial prescription of contraceptive pills Take [...] every afternoon. 30 Capsule 2 07/23/2023 Active LORazepam 0.5 MG Oral Tablet (Ativan) [...] as of this encounter (statuses as of 10/21/2023) Active Problems Problem Noted Date Diagnosed Date PTSD (post-traumatic stress disorder) 01/29/2023 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---have spontaneously bled -avoid estrogen containing OCP Prediabetes 10/29/2022 Overview: Per Prediabetes protocol Rheumatoid arthritis of 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 Rheumatoid arthritis involvi ng multiple sites with positive rheumatoid factor 03/18/2020 08/09/20 20 documented as of this encounter (statuses as of 10/21/2023) Immunizations Name Administration Dates Next Due COVID-19 [...] 11/08/2023 1:30 PM EDT Office Visit Rheumatology [address] [place] [address] Av Austin CRNP [facility] [place] [address] 11/21/2023 9:40 AM EDT Office Visit Hepatology, [facility] [place] [address] [place] [address] Vikki Louie DO [address] [address] 05/04/2024 1:00 PM EDT Office Visit Gynecology/Obstetrics [facility] [address] [place] [address] Jaleesa Hess PA-C [address] [place] [address] Health Maintenance Due Date Last Done Comments [...] this encounter Medical Devices Implanted Type Area Mobile Home Laborer Device Identifier Shelf Expiration Date Model / Serial / Lot Syr Pf 2ml Embospheres 100-300 - [id number] Implanted:Qty: 1 on 04/18/2023 by Chao King DO at OR [facility] N/A: Chest [employer] 10/14/2025 S220GH / / [id number] Syr Pf 2ml Embospheres 100-300 - [id number] Implanted:Qty: 1 on 04/18/2023 by Chao King DO at OR [facility] [employer] [id number] 10/14/2025 S220GH / / [id number] documented as of this encounter Procedures Procedure Name Priority Date/Time Associated Diagnosis Comments OUTSIDE LAB RESULTS 10/17/2023 documented in this encounter Results * OUTSIDE LAB RESULTS (10/17/2023) 10/17/2023 No Physician Data Unknown LABORATORY documented in this encounter Care Teams Assistant Operator Relationship Specialty Start Date End Date Dayday Wahl MD 132 [facility] [place] [address] PCP - General Family Medicine 03/18/20 documented as of this encounter
--- OUTSIDE RECORDS SUMMARY | 2023-12-05 10:39 | External Medical Summary | Summary of Care ---
Author Name Unknown Organization [facility] Address [address] [place] [address] Phone [phone] Care Team Providers Care Equine Breeder Name Role Phone Dayday Wahl MD Primary Care Provider [phone] Reason for Referral * Evaluate & Treat - Unlimited Visits (Within 10 days (routine)) - Pending Review Specialty Diagnoses / Procedures Referred By Gabriela boogie Referred To Contact Pharmacist / Pharmacy Diagnoses Seronegative rheumatoid arthritis (HCC) Av Quick CRNP [address] [place] [id number] Referral ID Status Reason Start Date Expiration Date Visits Requested Visits Authorized [id number] Pending Review Specialty Services Required 11/11/2023 99 99 Question Answer Referral Priority Within 10 days (routine) Where should this appointment be scheduled? [facility] Referring Provider Role: Specialist Specialty: Rheum [...] have her medication therapy managed by the [facility] Medication Therapy Disease Management [facility] ([facility]) per established policies, procedures, and [...] understand that the service provided by the [facility] is voluntary and have informed patient that they can refuse the service at their discretion. I am aware that the [facility] will provide me with a copy of the patient encounter via my [employer] In-Basket. I authorize the [facility] to carry out these activities on my behalf. I consider this program to be a necessary part of the patient's medical care. Tamiko Foley [facility] Reason for Visit * Reason Onset Date Comments Precert Approved 11/08/2023 Rinvoq Encounter Details Date Type Department Care Team (Late st Contact Info) Description 11/08/2023 Refill Rheumatology [address] [place] [phone] Av Quick CRNP [facility] [facility] [place] [address] Seronegative rheumatoid arthritis (HCC)* Allergies No known [...] Overview: Per Prediabetes protocol Rheumatoid arthritis of [facility] sites without rheumatoid factor [...] encounter Miscellaneous Notes * Addendum Note - Kim Galvez CPhT - 11/14/2023 1:13 PM EDTAddended by: KIM GALVEZ on: 11/14/2023 01:13 PM Modules accepted: Orders * Telephone Encounter - Kim Galvez CPhT - 11/14/2023 1:10 PM EDT Rheumatology Pre-Certification Response Approved - Script pended - to be filled at [facility] (P: [phone]) Thank you, Kim Venegas CPhT Senior Tax Accountant III [facility] ([facility]) (Formerly Telepharmacy) 11/14/2023,1:10 PM * Telephone Encounter - Magda Monet CPhT - 11/14/2023 8:03 AM EDT Patient Phone Numbers Sent Koducohart message to patient to schedule [facility] appointment for Medication Education. Appointment scheduled as noted below. 12/09/2023 Thank you, Magda Monet CPhT-Adv Senior Tax Accountant Drug Safety Assistant [facility] ([facility]) (formerly Telepharmacy) 11/14/2023,8:04 AM * Telephone Encounter - Tamiko Foley RPh - 11/11/2023 10:31 AM EDT Rheumatology Pre-Certification Request Medication/Disease State Information: Diagnosis: (M06.00) Seronegative rheumatoid arthritis Patient Age: [age] year old Medication/Dose/Route/Interval: Rinvoq: 15 mg once daily Site of Care: Self-Administered Insurance considerations: Non-[facility] commerical Previously Tried Therapy: Previously tried and resulted in inadequate response/therapeutic failure: Cimzia, Enbrel, Humira, Methotrexate, and Xeljanz Required Screening Information: Vaccination(s): [facility] - plan in place for CDC/ACIP vaccination guidelines usingHealth Maintenance Topics, Best Practice Alerts, and Anticipatory Management Reports within EHR TB Testing: Completed under scans, care everywhere or epic Hepatitis B Screenings: Completed under scans, care everywhere or epic Hepatitis C Screenings: Completed under scans, care everywhere or epic No active, severe, and/or uncontrolled infection Reauthorization: No Rheumatology Office Information: Hot Mix Operator: AV QUICK Rheumatology Pharmacist: Deo Vargas Rheumatology Pharmacist Appointment Request Department & Provider: Rheumatology [facility] [place] [[id number]] - Pharmacist Rheumatology [facility] [[id number]] Patient to be scheduled for visit type: Telephonic Medicine Visit [54053] Length of visit: 30 min Reason for visit: med education Time Frame: within 2-4 weeks Please route this encounter back to Rheum Pharmacist Refill Pool/Class [p [phone]] if unable to schedule patient after 3 attempts. Thank you and have a wonderful day, Tamiko Foley [facility] * Telephone Encounter - Av Quick ELPIDIO Wyman - 11/08/2023 1:53 PM EDT Rheumatology Education, Pre-Certification, and/or Pharmacist Co-Management Request Medication Education: yes Pre-Certification: [facility]: Pre-cert for Prednisone, DMARDs & IV/IM/SC Osteoporosis Meds ([facility] rheumatology pharmacist pool p [phone]) Pharmacist Co-Management ([facility] ONLY; West select "no"): [...] will have medication therapy managed [facility]) per established policies, procedures, and protocols. I also certify that this referral may serve as an initiation of service for the management of drug therapy in the above noted patient. [facility] providers will be responsible for scheduling patient visits, obtaining appropriate laboratory studies, and adjusting medication management therapy per patient's need, in addition to those roles spelled out in the clinic policy, procedures, and drug management protocols. I understand that the service provided by the [facility] is voluntary and have informed patient that they can refuse the service at their discretion. I am aware that the [facility] will provide me with a copy of the patient encounter via my [employer] In-Basket. I authorize the [facility] to carryout these activities on my behalf. I consider this program to be a necessary part of the patient's medical care. ELPIDIO Gonzales documented in this encounter Plan of Treatment Upcoming Encounters Date Type Department Care Team (Late st Contact Info) Description 11/21/2023 9:40 AM EDT Office Visit Hepatology, [facility] [address] [place] [address] Vikki Louie DO [address] [place] [address] 12/09/2023 10:30 AM EDT Telemedicine Rheumatology, [place] [address] [place] [address] Agc5, Pharmacist Rheumatology [address] [place] [address] 02/14/2024 10:00 AM EDT Office Visit Rheumatology [address] [place] [phone] Av Quick CRNP [facility] [facility] [place] [address] 05/04/2024 1:00 PM EDT Office Visit Gynecology/Obstetrics [facility] [address] [place] [address] Jaleesa Hess PA-C [address] [place] [address] Scheduled Referrals Name Type Priority Associated Diagnoses Orde r Schedule PHARMACIST MEDS THERAPY MGMT REFERRAL OP Referral Within 10 days (routine) Seronegative rheumatoid arthritis (HCC) Ordered: 11/11/2023 Health Maintenance Due Date Last Done Comments HIV Screening 1996 Albumin/Creatinine Ratio 1999 Depression Screening 12/05/2022 12/05/2021 COVID-19 Vaccine ( season) 2023 10/05/2020, 09/07/2020 HbA1c 10/26/2023 10/25/2022 GFR 04/19/2024 04/19/2023, 08/11/2022, [...] this encounter Medical Devices Implanted Type Area Program Development Manager Device Identifier Shelf Expiration Date Model / Serial / Lot Syr Pf 2ml Embospheres 100-300 - [id number] Implanted:Qty: 1 on 04/18/2023 by Chao King DO at OR [facility] N/A: Chest [employer] 10/14/2025 [id number] / / [id number] Syr Pf 2ml Embospheres 100-300 - [id number] Implanted:Qty: 1 on 04/18/2023 by Chao King DO at OR [facility] [employer] [facility] [id number] 10/14/2025 20 / / [id number] documented as of this encounter Visit Diagnoses Diagnosis Seronegative rheumatoid arthritis (HCC)- Primary Rheumatoid arthritis documented in this encounter Care Teams Equine Breeder Relationship Specialty Start Date End Date Dayday Wahl MD [address] [place] [address] PCP - General Family Medicine 03/18/20 documented as of this encounter
--- OUTSIDE RECORDS SUMMARY | 2023-12-05 10:39 | External Medical Summary | Summary of Care ---
Author Name Unknown Organization [facility] Address [address] [place] [address] Phone [phone] Care Team Providers Care Customer Care Specialist Name Role Phone Dayday Wahl MD Primary Care Provider [phone] Reason for Referral * Evaluate & Treat - Unlimited Visits (Within 10 days (routine)) - Pending Review Specialty Diagnoses / Procedures Referred By Gabriela boogie Referred To Contact Pharmacist / Pharmacy Diagnoses Seronegative rheumatoid arthritis (HCC) Av Quick CRNP [address] [place] [address] Referral ID Status Reason Start Date Expiration Date Visits Requested Visits Authorized [id number] Pending Review Specialty Services Required 11/11/2023 99 99 Question Answer Referral Priority Within 10 days (routine) Where should this appointment be scheduled? [facility] Referring Provider Role: Specialist Specialty: [...] have her medication therapy managed by the [facility] Medication Therapy Disease Management Clinic ([facility]) per established policies, procedures, and protocols. I [...] copy of the patient encounter via my [employer] In-Basket. I authorize the [facility] to carry out these activities on my behalf. I consider this program to be a necessary part of the patient's medical care. Tamiko Foley [facility] Reason for Visit * Reason Onset Date Comments Precert In Process 11/08/2023 27 KASSIDY MRK Rinvoq Encounter Details Date Type Department Care Team (Late st Contact Info) Description 11/08/2023 Telephone Rheumatology [address] [place] [phone] Av Quick CRNP [address] [place] [address] [place] [address] Precert In Process ( KASSIDY RK Rinvoq) Allergies No known active allergiesdocumented as of [...] Overview: Per Prediabetes protocol Rheumatoid arthritis of [facility] sites without rheumatoid factor 10/10/2022 Depression with [...] encounter Miscellaneous Notes * Telephone Encounter - TimdebbieTamiko palma, [facility] - 11/11/2023 10:31 AM [...] Screenings: Completed under scans, care everywhere or [facility] No active, severe, and/or uncontrolled infection Reauthorization: No Rheumatology Office Information: [facility] Manager: AV QUICK Rheumatology Pharmacist: Deo Vargas Rheumatology Pharmacist Appointment Request Department & Provider: Rheumatology [facility] [place] [[id number]] - Pharmacist Rheumatology [facility] [[id number]] Patient to be scheduled for visit type: Telephonic Medicine Visit [29731] Length of visit: 30 min Reason for visit: med education Time Frame: within 2-4 weeks Please route this encounter back to Rheum Pharmacist Refill Pool/Class [p [phone]] if unable to schedule patient after 3 attempts. Thank you and have a wonderful day, Tamiko Foley RPh * Telephone Encounter - Av Quick CRNP - 11/08/2023 1:53 PM EDT Rheumatology Education, Pre-Certification, and/or Pharmacist Co-Management Request Medication Education: yes Pre-Certification: [facility]: Pre-cert for Prednisone, DMARDs & IV/IM/SC Osteoporosis Meds (routeto rheumatology pharmacist pool p [phone]) Pharmacist Co-Management ([facility] ONLY; West select "no"): [...] [facility]) per established policies, procedures, and protocols. I also certify that this referral may serve as an initiation of service for the management of drug therapy in the above noted patient. [facility] providers will be responsible for scheduling patient visits, obtaining appropriate laboratory studies, and adjusting medication management therapy per patient's need, in addition to those roles spelled out in the clinic policy, procedures, and drug management protocols. I understand that the service provided by the [facility] Clinic is voluntary and have informed patient that they can refuse the service at their discretion. I am aware that the [facility] Clinic will provide me with a copy of the patient encounter via my [employer] In-Basket. I authorize the [facility] Clinic to carryout these activities on my behalf. I consider this program to be a necessary part of the patient's medical care. ELPIDIO Gonzales documented in this encounter Plan of Treatment Upcoming Encounters Date Type Department Care Team (Late st Contact Info) Description 11/21/2023 9:40 AM EDT Office Visit Hepatology, [facility] [address] [address] Vikki Louie DO [address] [place] [address] 02/14/2024 10:00 AM EDT Office Visit Rheumatology [address] [place] [address] Av Quick CRNP [facility] [facility] [place] [address] 05/04/2024 1:00 PM EDT Office Visit Gynecology/Obstetrics [facility] [address] [place] [address] Jaleesa Hess PA-C [address] [place] [address] Scheduled Referrals Name Type Priority Associated Diagnoses [...] this encounter Medical Devices Implanted Type Area Coremaker Floor Device Identifier Shelf Expiration Date Model / Serial / Lot Syr Pf 2ml Embospheres 100-300 - [id number] Implanted:Qty: 1 on 04/18/2023 by Chao King DO at OR [facility] N/A: Chest [facility] [employer] 10/14/2025 S220GH / / [id number] Syr Pf 2ml Embospheres 100-300 - [id number] Implanted:Qty: 1 on 04/18/2023 by Chao King DO at OR [facility] [employer] [facility] [id number] 10/14/2025 S220 / / [id number] documented as of this encounter Visit Diagnoses Diagnosis Seronegative rheumatoid arthritis (HCC)- Primary Rheumatoid arthritis documented in this encounter Care Teams Customer Care Specialist Relationship Specialty Start Date End Date Dayday Wahl MD [address] [place] [address] PCP - General Family Medicine 03/18/20 documented as of this encounter
--- OUTSIDE RECORDS SUMMARY | 2023-12-05 10:40 | External Medical Summary ---
Author Name Unknown Address Unknown Organization K01:[facility] [facility] - [address] [place] [address] Laboratory Report Ordering Provider Test Date Status ABDELRAHMAN ALANIZ 09/20/2023 15:49:15 Final Observation Date Value Abnormality Reference (Units ) Status WBC, Total 09/20/2023 15:49:15 6.09 4.00-10.80 (K/uL) Final RBC 09/20/2023 15:49:15 4.54 3.85-5.15 (M/uL) Final Hemoglobin 09/20/2023 15:49:15 12.5 12.0-15.3 (g/dL) Final HCT 09/20/2023 15:49:15 38.5 36.0-45.2 (%) Final MCV 09/20/2023 15:49:15 84.8 81.5-97.5 (fL) Final MCH 09/20/2023 15:49:15 27.5 27.0-34.0 (pg) Final MCHC 09/20/2023 15:49:15 32.5 32.0-36.0 (g/dL) Final RDW 09/20/2023 15:49:15 14.3 11.5-15.5 (%) Final Platelets 09/20/2023 15:49:15 311 140-400 (K/uL) Final MPV 09/20/2023 15:49:15 10.3 6.6-11.1 (fL) Final Nucleated erythrocytes/100 leukocytes [Ratio] in Blood by Automated count 09/20/2023 15:49:15 0 <=0 (/100 WBCs) Final Performing Location [facility] [place] - [address] [place] [address]
--- OUTSIDE RECORDS SUMMARY | 2023-12-05 10:40 | External Medical Summary ---
Author Name Unknown Address Unknown Organization K01:[facility] - [address] [place] [address] Laboratory Report Ordering Provider Test Date Status WILLIAM KNOX 07/02/2023 16:06:04 Final Observation Date Value Abnormality Reference (Units ) Status WBC, Total 07/02/2023 16:06:04 5.28 4.00-10.80 (K/uL) Final RBC 07/02/2023 16:06:04 4.57 3.85-5.15 (M/uL) Final Hemoglobin 07/02/2023 16:06:04 12.2 12.0-15.3 (g/dL) Final HCT 07/02/2023 16:06:04 39.4 36.0-45.2 (%) Final MCV 07/02/2023 16:06:04 86.2 81.5-97.5 (fL) Final MCH 07/02/2023 16:06:04 26.7 27.0-34.0 (pg) Final MCHC 07/02/2023 16:06:04 31.0 32.0-36.0 (g/dL) Final RDW 07/02/2023 16:06:04 13.6 11.5-15.5 (%) Final Platelets 07/02/2023 16:06:04 251 140-400 (K/uL) Final MPV 07/02/2023 16:06:04 10.2 6.6-11.1 (fL) Final Nucleated erythrocytes/100 leukocytes [Ratio] in Blood by Automated count 07/02/2023 16:06:04 0 <=0 (/100 WBCs) Final Performing Location [facility] - [address] [place] [address]
--- OUTSIDE RECORDS SUMMARY | 2023-12-05 10:40 | External Medical Summary | Summary of Care ---
Author Name Unknown Organization [facility] Address [address] [place] [address] Phone [phone] Care Team Providers Care Student Success Advisor Name Role Phone Dayday Wahl MD Primary Care Provider [phone] Reason for Visit * Reason Comments Anxiety * - Authorized Specialty Diagnoses / Procedures Referred By Contac t Referred To Contact Referral ID Status Reason Start Date Expiration Date V isits Requested Visits Authorized [id number] Authorized 09/19/2022 09/18/[phone] Encounter Details Date Type Department Care Team (Late st Contact Info) Description 07/23/2023 11:30 AM EST [facility] [address] [facility] [place] [address] Jose Wise CRNP [address] [facility] [address] PTSD (post-traumatic stress disorder)*; Panic disorder; Major depressive disorder, single episode, moderate (HCC) Allergies No known active allergiesdocumented as of this encounter (statuses as of 07/23/2023) Medications Medication Sig Dispensed Refills Start Date [...] every afternoon. 30 Capsule 2 07/23/2023 Active DULoxetine HCl 30 MG Oral Capsule Delayed Release Particles (Cymbalta) Take 1 Capsule by mouth 2 times a day in the morning and at noon. 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---have spontaneously bled -avoid estrogen containing OCP Prediabetes 10/29/2022 Overview: Per Prediabetes protocol Rheumatoid arthritis of [facility] sites without rheumatoid factor 10/10/2022 Depression with anxiety 09/24/2022 HTN, goal below 130/80 08/15/2021 Obesity, Class II, BMI 35-39.9, isolated (see ac tual BMI) 08/14/2021 Gastroesophageal reflux disease with esophagitis 03/21/2020 documented as of this encounter (statuses as of 07/23/2023) Resolved Problems Problem Noted Date Diagnosed Date Resolved Date Seronegative polyarthritis 08/09/2020 0 01/28/2023 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 Rheumatoid arthritis involvi ng multiple sites with positive rheumatoid factor 03/18/2020 08/09/20 20 documented as of this encounter (statuses as of 07/23/2023) Immunizations Name Administration Dates Next Due COVID-19 mRNA, LNP-s, No Pre serve, 2-Dose Series (Moderna) 10/05/2020,09/07/2020 Hepatitis B, 20+ yrs 11/14/2020,06/18/2020,05/16 SEASONAL INFLUENZA, PF, 6 M & Above, IM , (FLULAVAL or FLUZONE) 05/16/2020 TDAP (age 10 and older)(Boostrix) 03/27/2021 documented as of this encounter Social History Tobacco Use Types Packs/Day Years Used Date Smoking Tobacco: Former Cigarettes 1 Q uit: 09/17/2002 Smokeless Tobacco: Never Alcohol [...] on file documented as of this encounter Progress Notes * Jose Wise CRNP - 07/23/2023 11:31 AM EST Patient Location: HOME. After connecting through televideo, patient was verified with two unique identifiers. Patient (or authorized legal insurance claim representative) was then informed that this was a Telemedicine visit and being conducted confidentially over secure lines. Methods to assure confidentiality were taken. Patient acknowledged consent and understanding of privacy and security of the Telemedicine visit. The patient agreed to participate. PSYCHOTHERAPY & MEDICATION MANAGEMENT RETURN VISIT NOTE Psychiatry, [facility] [address] [facility] [place] [id number] 07/23/2023 Mary Kate Howard CHIEF COMPLAINT: Anxiety INTERVAL HISTORY: Mary Kate Howard is a 43 year old female presenting today for a follow-up appointment. Pt has been in contact with a therapist thru the [place], as her is in the . This is hasbeen going very well, states "I definitely needed that." Continues to work, has undergone surgeriesfor liver tumors and endometrial biopsy. She has stopped taking Prazosin 3-4 months ago, BP has been improved and she has had fewer nightmares. Cymbalta dose increase "is still helping." When missing doses accidentally, she will notice some lower mood, amotivation, mental fog. Feels current Cymbalta dose is "for now at a good dosage." Denies any major changes to sleep or appetite. Her primary concern today is increased anxiety, which sometimes she feels unable to control. Episodes of racing pulse, restlessness, racing thoughts, irritability. Attributes this to work and personal stressors, especially worsening in past 1-2 months."I feel like I'm not getting a break, sometimes." Binge-eating episodes are less frequent, approx once weekly or every other week, though she identifies "I kind of still have the desire," though identifies finances as a limiting factor. MEDICATION SIDE EFFECTS: denies OBJECTIVE DATA: COLUMBIA-SUICIDE SEVERITY RATING SCALE: - Have you ever wished that you were , or not alive anymore? denies - Have you actually had thoughts about killing yourself? denies - Have you been thinking about how you might do this? denies - Have you had these thoughts and had some intention of acting on them? denies - Have you started to work out or worked out the details of how to kill yourself? denies - Do you intend to carry out this plan? denies - Have you done anything, started to do anything, or prepared to do anything to end your life? denies Low Risk: Reviewed a crisis plan with patient including calling the suicide hotline, calling their local crisis number, using the crisis text line, or calling the department of psychiatry phone number. Discussed risks/protective factors and reasons for living. ROS EXAM: Negative except as described above SUBSTANCE USE: Alcohol once every 2-3 month 1-4 drinks Denies otherwise RELEVANT CHANGES IN PAST PSYCHIATRIC, MEDICAL, FAMILY OR SOCIAL HX: As described above CURRENT MEDS: Current Outpatient Medications Medication Sig Dispense Refill DULoxetine HCl 30 MG Oral Capsule Delayed Release Particles (Cymbalta) Take 1 Capsule by mouth 2 times a day in the morning and at noon. 60 Capsule 1 Certolizumab Pegol 2 X 200 MG/ML Subcutaneous [...] before bedtime. With meals.. 30 Tablet 0 No current facility-administered medications for this visit. ALLERGIES: Review of patient's allergies indicates: No Known Allergies RECENT LABORATORY DATA: Neutrophils 31.5L Lymphocytes 55.7H MENTAL STATUS EXAMINATION: Appearance: age-appropriate and casually dressed Muscle strength/tone and motor behavior: normal muscle strength and tone Gait and Station: no abnormalities noted and not tested Personal Presentation: open and friendly, candid and cooperative. Speech: normal, rate, tone and volume Mood: neutral Affect: type - euthymic; range - full range; lability - no Associations: intact Thought Process: goal directed and logical Abstract Reasoning: intact Thought Content: denies suicidal ideations, homicidal ideations, auditory hallucinations, visual hallucinations, delusions, impulsivity to act out or preoccupation with violence Orientation: alert and oriented to person, place, time and situation Recent and remote memory as evidenced by recall of recent circumstances and remote life events: intact Language as evidenced by ability to repeat phrase and name object: intact Fund of knowledge as evidenced by vocabulary and current/historical events: intact Attention span/concentration as evidenced by: ability to sustain attention to examiner - intact andfollowing conversation - intact Insight: fair Judgment: fair FORMULATION: Mary Kate Howard is a 43 year old female with presenting symptoms of PTSD, depression, anxiety. Ex- passed late 2021/early 2022 due to overdose and she has been struggling moreso since this time. PMH includes HTN, GERD, seronegative polyarthritis, chronic generalized pain. Denies any prior psychiatric history including inpatient, suicide attempt, or substance abuse. Lives in home with and one child who is transitioning. 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 ASSESSMENT - DIAGNOSIS: - PTSD - Panic Disorder - MDD, single episode, moderate - Differential includes BPD PLAN: - D/C Prazosin - Increase Cymbalta 60mg daily, 30mg afternoon - Encourage continued followup with therapy - Risks/benefits of currently prescribed psychiatric medications discussed, verbalized understanding - I have reviewed the patients controlled substance dispensing history in the Prescription Drug Monitoring Program in compliance with the [facility] regulations before prescribing a controlled substance. Crisis Planning: Mary Kate Howard has been provided with Psychiatry emergency telephone numbers, including crisis number, text suicide hotline and suicide hotline. The crisis plan was reviewed and updated if necessary based on the information above. Side effects of the medication were explained, and the patient understands the risks and benefits of using the medication.Patient cautioned not to drive, operate heavy machinery, or participate in other tasks requiring full cognitive alertness until they know how new medications will affect them. Pt encouraged to keep all medications out of the reach of children. Psychoeducation was provided. Discussed risks, expected benefits, and potential adverse effects from these medications. The benefits outweigh the risks.The patient participated in the development of the treatment plan, verbalized understanding, voices no concerns and is agreeable to the treatment plan. Risk Assessment: Risk assessment was performed for Mary Ktae Howard. This is a patient being treated for chronic mental health conditions as characterized above; at the time of this visit, there was noindication that this patient was either a risk to self, others, or gravely disabled by symptoms of a mental illness. At the time of this evaluation, there were enough protective factors in place and it was deemed safe to continue with treatment on a outpatient basis with return to clinic in the timeframe described above. Health Maintenance: Mary Kate Howard was encouraged to keep up to date on regular health maintenance per her primary care provider. Encouraged to keep active in productive hobbies and exercise. This helps manage emotions, improve sleep, wellbeing and overall health. Pt was cautioned to not drink alcohol or use illicit drugs as these can make mood symptoms worse by blocking the effects of prescribedmedications. Avoid tobacco, which contains nicotine. Limit caffeine use. Caffeine and Nicotine are stimulants that can cause difficulty with sleep. Lack of sleep can then worsen anxiety and depression. Return in 6 weeks or sooner as needed. Time Spent on Visit total: 24 minutes - including preparing to see the patient, reviewing history, performing evaluation, counseling/educating patient, ordering medications/tests, documenting clinical information. 16 minutes was spent on counseling including active listening, supportive therapy, self-care, and reflection Jose Wise, MSN, ELPIDIO, PMHNP- Nurse Practitioner - Outpatient Psychiatry [facility] - [place] 07/23/2023 documented in this encounter Plan of Treatment Upcoming Encounters Date Type Department Care Team (Late st Contact Info) Description 08/07/2023 11:30 AM EST Office Visit Gynecology/Obstetrics [facility] Ramoss [address] [place] [address] Peewee Mas MD [address] [place] [address] 09/02/2023 11:30 AM EST Telemedicine [facility] [address] [place] [address] Jose Wise CRNP [address] [place] [address] 09/20/2023 3:00 PM EST Office Visit Rheumatology [address] [place] [phone] Av [place] CRNP [address] [facility] [place] [address] 10/18/2023 8:00 AM EST Imaging Radiology [facility] 1st Floor, [place] [address] [place] [address] 05/04/2024 1:00 PM EDT Office Visit Gynecology/Obstetrics [facility] [address] [place] [address] Jaleesa Hess PA-C [address] [place] [address] Health Maintenance Due Date Last Done Comments [...] this encounter Medical Devices Implanted Type Area Inpatient Services Director Device Identifier Shelf Expiration Date Model / Serial / Lot Syr Pf [facility]ml [facility] - [id number] Implanted:Qty: 1 on 04/18/2023 by Chao King DO at [facility] [employer] [facility] [id number] 10/14/2025 [id number] / / [id number] documented as of this encounter Visit Diagnoses Diagnosis PTSD (post-traumatic stress disorder)- Primary Posttraumatic stress disorder Panic disorder Panic disorder without agoraphobia Major depressive disorder, single episode, moderate (HCC) Major depressive disorder, single episode, moderate documented in this encounter Care Teams Student Success Advisor Relationship Specialty Start Date End Date Dayday Wahl MD [address] [place] [address] PCP - General Family Medicine 03/18/20 documented as of this encounter
--- OUTSIDE RECORDS SUMMARY | 2023-12-05 10:40 | External Medical Summary ---
Author Name Unknown Address Unknown Organization [id number]:[facility] [place] [address] [facility] [place] [address] Laboratory Report Ordering Provider Test Date Status ABDELRAHMAN ALANIZ 09/20/2023 15:49:15 Final Observation Date Value Abnormality Reference (Units ) Status SYNC LEUKOCYTES IN BLOOD BY AUTOMATED COUNT 09/20/2023 15:49:15 6.09 4.00-10.80 (K/uL) Final Segs 09/20/2023 15:49:15 45.9 40.0-75.0 (%) Final Lymphs % 09/20/2023 15:49:15 42.2 Above high normal 18.0-42.0 (%) Final Monos 09/20/2023 15:49:15 7.7 1.0-11.0 (%) Final Eosinophils 09/20/2023 15:49:15 2.5 0.0-6.0 (%) Final Basos 09/20/2023 15:49:15 1.5 0.0-2.0 (%) Final Immature Granulocyte, Percent 09/20/2023 15:49:15 0.2 0.0-2.0 (%) Final Absolute Segs 09/20/2023 15:49:15 2.80 1.80-7.70 (K/uL) Final Lymphs, absolute 09/20/2023 15:49:15 2.57 1.00-4.80 (K/ul) Final Monos, Abs 09/20/2023 15:49:15 0.47 0.00-1.10 (K/uL) Final Eos, Abs 09/20/2023 15:49:15 0.15 0.00-0.70 (K/uL) Final Basos, Abs 09/20/2023 15:49:15 0.09 0.00-0.20 (K/uL) Final Immature Granulocytes, Number 09/20/2023 15:49:15 0.01 0.00-0.20 (K/uL) Final Performing Location [facility] [place] - [address] [facility] [address]
--- OUTSIDE RECORDS SUMMARY | 2023-12-05 10:40 | External Medical Summary | Summary of Care ---
Author Name Unknown Organization [facility] Address [address] [place] [address] Phone [phone] Care Team Providers Care Textile Mach[employer] Sales Representative Name Role Phone Dayday Wahl MD Primary Care Provider [phone] Reason for Visit * Auth/Cert Specialty Diagnoses / Procedures Referred By Gabriela boogie Referred To Contact Diagnoses Uterine mass Uterine mass [N85.8] Procedures HYSTEROSCOPY W/BIOPSY AND/OR POLYPECTOMY W/WO D&C PELVIC EXAM UNDER ANESTHESIA, NOT LOCAL HYSTEROSCOPY WITH BIOPSY AND/OR POLYPECTOMY WITH OR WITHOUT D&C PELVIC EXAMINATION UNDER ANESTHESIA Referral ID Status Reason Start Date Expiration Date Visits Re quested Visits Authorized [id number] Encounter Details Date Type Department Care Team (Latest Contact Info) Description 07/18/2023 7:54 AM EST - 07/18/2023 11:01 AM [facility] Hospital Encounter OR [facility], Operating Room [facility] [address] [place] [id number] Peewee Cline MD [address] [place] [id number] Discharge Disposition: Home - Self Care Allergies No known active allergiesdocumented as of this encounter (statuses as of 07/18/2023) Medications Medication Sig Dispensed Refills Start Date End Date Status DULoxetine HCl 30 MG Oral Capsule Delayed Release Particles (Cymbalta) Take 1 Capsule by mouth 2 times a day in the morning and at noon. 60 Capsule 1 12/18/2022 Active Certolizumab Pegol 2 X 200 MG/ML [...] With meals.. 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---have spontaneously bled -avoid estrogen containing OCP Prediabetes 10/29/2022 Overview: Per Prediabetes protocol Rheumatoid arthritis of [facility] without rheumatoid factor 10/10/2022 Depression with anxiety 09/24/2022 HTN, goal below 130/80 08/15/2021 Obesity, Class II, BMI 35-39.9, isolated (see ac tual BMI) 08/14/2021 Gastroesophageal reflux disease with esophagitis 03/21/2020 documented as of this encounter (statuses as of 07/18/2023) Resolved Problems Problem Noted Date Diagnosed Date Resolved Date Seronegative polyarthritis 08/09/2020 0 01/28/2023 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 Rheumatoid arthritis involvi ng multiple sites with positive rheumatoid factor 03/18/2020 08/09/20 20 documented as of this encounter (statuses as of 07/18/2023) Immunizations Name Administration Dates Next Due COVID-19 [...] Sign Reading Time Taken Comments Blood Pressure 134/76 07/18/2023 10:45 AM EST Pulse 82 07/18/2023 10:45 AM EST Temperature 36.2 C (97.2 F) 07/18/2023 10:[address] Respiratory Rate 20 07/18/2023 10:45 AM EST Oxygen Saturation 96% 07/18/2023 10:45 AM EST Inhaled Oxygen Concentration - - Weight 100.7 kg (222 lb) 07/18/2023 8:11 AM EST Height 159.4 cm (5' 2.76") 07/18/2023 8:11 AM ES T Body Mass Index 39.63 07/18/2023 8:11 AM EST documented in this encounter Discharge Summaries * Peewee Cline MD - 07/18/2023 10:02 AM EST [facility] [address] [place] [phone] OUTPATIENT SURGERY DISCHARGE SUMMARY NOTE Name: Mary Kate Howard Location: OR [facility]/OR Date: 07/18/2023 Time: 10:03 AM Surgery Date: 07/18/2023 Procedure: Procedure(s): HYSTEROSCOPY WITH BIOPSY AND/OR POLYPECTOMY WITH OR WITHOUT D&C PELVIC EXAMINATION UNDER ANESTHESIA Bilateral No laterality found for procedure #2 Surgeon: Surgeon(s): Peewee Cline MD Davis, Lori Ann, PA-C Discharge Diagnosis: postop After examination of this patient, I have determined she is ready for discharge to home when the patient meets criteria. Discharge instructions were given to the patient. documented in this encounter Discharge Instructions * Discharge Instr - AVS* Peewee Cline MD - 07/18/2023 10:02 AM EST Discharge Date: 07/18/2023 The information below provides you with the instructions and the list of medications you need to betaking following discharge from the hospital. If you have any questions, please ask before leaving.Please carry this letter with you when you see your doctor in the clinic. If you have questions, you can reach us at the numbers above. Post Anesthesia Instructions: 1. Do not drive today. 2. Resume driving when surgeon permits. 3. Do not make important decisions or sign legal documents today. 4. Call surgeon for: Temperature evaluation greater than 101 degrees Uncontrollable pain Excessive Bleeding Persistent Nausea and vomiting Medication intolerance (nausea, vomiting, or rash) 5. For nausea and vomiting use only clear liquids such as: tea, soda, bouillon until nausea subsides, then gradually increase diet as tolerated. 6. If you have any concerns or questions, call your surgeon's office at [phone] . If the physician is unavailable and it is an emergency, call 911 or go to the nearest emergency room. Preprinted instructions given: None (Form No.) Special Care / Other: DISCOMFORT: Vaginal bleeding (less than a period) for 7 - 10 days is common. Cramping may occur in lower abdomen and may be relieved by pain medication advised by your doctor. Sore throat is common and results from method of administering anesthesia; usually disappears within 24 hours. Menstruation - first menstrual flow may be scanty, may be heavy and contain clots or may stop and start again. The second period should be normal. Sexual activity permitted when bleeding stops. CONTRACEPTION: Check with your doctor for advice if you plan to become within the next 3 - 4 months. Your doctor will discuss your choice, if any, of contraceptives at your follow- up visit. HYGIENE: Bathing - may shower or tub bathe at any time. Douching - do not douche until 2 weeks after surgery or until no further bleeding or cramping. SIGNS OF INFECTION: Elevated temperature - 101oF or above by mouth. Vaginal drainage. Unusual pain or burning. Activity : Rest today. Return to School or Work: No Limitations Diet: Resume previous diet Follow-up Visit with: dr cline When: in 2 weeks Discharged To: Home documented in this encounter H&P Notes * Peewee Cline MD - 07/18/2023 9:04 AM EST HISTORY & PHYSICAL INTERVAL NOTE [facility] [address] [phone] History and Physical Update: Name: Mary Kate Howard Location: OR [facility]/OR Date: 07/18/2023 Time: 9:04 AM DATE OF HISTORY AND PHYSICAL: BP: 157 mmHg/80 mmHg (07/18/23810) Pulse: 78 (07/18/23810) Temp: 36.06 C (07/18/23810) Resp: 18 (07/18/23810) SpO2: 100 % (07/18/23810) Does patient take a beta nola? No Did patient stop anticoagulants? None Heart Exam: regular rate and rhythm Lung Exam: clear to auscultation bilaterally Other Pertinent Physical Exam: I have reviewed the H&P previously performed and examined the patient today. There are no new findings noted. Source Note - Peewee Cline MD - 07/02/2023 4:00 PM EST Patient Name: Mary Kate Howard Patient Pt is a 43 yo Pt was seen at [facility] on 04/19/23 for menorrhagia. She had Ct and pelvic sono done. Sono showed possible uterine mass. Office endometrial biopsy done 05/16/23 ws negative for pathology.I have dicussed the above results with pt and have offered her a D&c with hysteroscopy because of the discrepancy between the sono an EMBX Pt is agreeable to D&C Location: Quality: Severity: Duration: Worsening/improving sympt: Pain level/ Scale: Timing: Associated symptoms: Past Medical Hx: Past Medical History: Diagnosis Date 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 Multiple---have spontaneously bled -avoid estrogen containing OCP Depression with anxiety 09/24/2022 Gastroesophageal reflux disease with esophagitis 03/21/2020 HTN, goal below 130/80 08/15/2021 PTSD (post-traumatic stress disorder) 01/29/2023 Rheumatoid arthritis involving multiple sites with positive rheumatoid factor (HCC) 03/18/2020 Seronegative polyarthritis 08/09/2020 Past Surgical Hx: Past Surgical History: Procedure Laterality Date IR EMBOLIZATION ARTERIAL NON HEMMORHAGE Left 04/18/2023 EMBOLIZATION ARTERIAL; SUPERVISION & INTERPRETATION performed by Chao King DO at OR [facility] REMOVE CERVIX CONE W/LOOP ELECTRODE Bilateral 07/11/2022 LOOP ELECTROSURGERY EXCISION PROCEDURE performed by Peewee Cline MD at OR [facility] Social Hx: Social History Socioeconomic History Marital status: Tobacco Use Smoking status: Former Packs/day: 1 Types: Cigarettes Quit date: 09/17/2002 Years since quittin.8 Smokeless tobacco: Never Vaping Use Vaping Use: Never used Substance and Sexual Activity Alcohol use: Yes Comment: rarely Drug use: Never Sexual activity: Yes Partners: Male control/protection: Pill Social Determinants of Health Food Insecurity: No Food Insecurity (01/24/2023) Hunger Vital Sign Worried About Running Out of Food in the Last Year: Never true Ran Out of Food in the Last Year: Never true Allergy: Review of patient's allergies indicates: No Known Allergies Family HX: Family History Problem Relation Age of Onset Alcohol and Other Disorders Associated Father Coronary Artery disease Father Breast Cancer Aunt (Maternal) ROS: REVIEW OF SYSTEMS CONSTITUTIONAL ROS: No change in weight, No weakness, No fatigue and No fevers, sweats, or chills PULMONARY ROS: No cough, sputum, or hemoptysis, No wheezing, No shortness or breath and No recent change in breathing CARDIOVASCULAR ROS: No chest pain, No shortness of breath, No dyspnea on exertion, No orthopnea, Noparoxysmal nocturnal dyspnea, No edema, No palpitations and No syncope BREAST ROS: No new breast lumps or masses, No severe breast pain, No nipple discharge, No recent change in shape/color and Performs self breast exam ENDOCRINE ROS; No change in wt gain, hair loss or bowel habits, malaise or fatigue. No polyuria, polyphagia polydipsia GASTROINTESTINAL ROS: No abdominal pain, No change in bowel habits, No significant heartburn, No significant change in appetite, No nausea, vomiting, diarrhea, or constipation, No hematemesis, No blood in stools or black tarry stools, No abdominal bloating or early satiety and No dysphagia GENITO-URINARY FEMALE ROS: No STDs, No dysuria, No frequency, No incontinence, No urgency and No vaginal discharge and + for irreg menses. ALL OTHERS REVIEWED AND ALL OTHERS NEGATIVE LABS: PHYSICAL EXAMINATION Well developed. Well nourishes white female in no acute distress Vital signs BP 138/94 | Temp 36.3 C (97.3 F) | Ht 1.594 m (5' 2.75") | Wt 100.7 kg (222 lb) | BMI 39.64 kg/m | BSA 2.11 m HEENT : WNL LUNG: CTA bilat. No wheezes, crackles, or rales HEART; S-1, S-2; GI; + Bowel Sounds. Non-tender. Non-distended.No guarding,rebound or costovertebral angle tenderness. No Hernias : Neurologic: grossly intact Extremity: No Cyanoses, clubbing or edema. No lesions on either extremeties Psych: Alert, awake and oriented X 3. Normal gait A/P Uterine mass on sonogram @ [facility] ER Visit Pt agreeable to D&C with hysteroscopy Pt scheduled for the ff procedures 1.Examination under anesthesia 2.Dilation and curettage 3.Hysterosocpy documented in this encounter Nursing Notes * Rosemary Irwin RN - 07/18/2023 10:59 AM EST Patient is alert, pain free, shankar pad intact and tolerating po fluids prior to discharge. Ambulatedto BR voided. Patient has been visited by Dr. Cline. Patient has received and demonstrates understanding of discharge instructions. Patient is transported ambulatory to private auto accompanied by and staff. * Rosemary Irwin RN - 07/18/2023 10:30 AM EST Pt received PACU II awake, mild # 3/10 abdominal cramps, shankar pad intact and taking po fluids. * Laura Shaw RN - 07/18/2023 10:27 AM EST Meets d'c criteria for PACU 1. * Laura Shaw RN - 07/18/2023 10:19 AM EST Pt states pain is 'annoying' but tolerable * Laura Shaw RN - 07/18/2023 10:16 AM EST Pt sitting up taking po ice chips and mary jane well. VSS. * Laura Shaw RN - 07/18/2023 9:59 AM EST Patient received to pacu 1 status post hysteroscopy . Patient able to rouse. no pain. no nausea. Respirations are even and unlabored on 6l/min mask. Lungs clear. NSR on monitor. Abdomen soft and non distended. Shankar pad is clean, dry and intact. Vital signs stable. * Sujata Lee RN - 07/18/2023 8:13 AM EST Patient or the Patients Legally Authorized Home Care Aide has been advised that (1) the Patient meets criteria for testing and (2) the administration of anesthesia, radiation or other imaging agents may have a harmful impact to an unborn child. The Patient or Patients Representativewere offered the opportunity to ask questions as to necessity of such testing and potential outcomes. Consent for testing has been given. * Sujata Lee RN - 07/18/2023 8:12 AM EST Surgical consent verified with patient. Patient agrees with listed procedure and verified signature. documented in this encounter OR Notes * OR Surgeon - Peewee Cline MD - 07/18/2023 10:03 AM EST OPERATIVE RECORD OR [facility], Operating Room [facility] [address] [facility] [place] [address] Mary Kate Howard : 1980 DATE: 07/18/2023 PREOPERATIVE DIAGNOSIS: 1. Menorrhagia 2. Endometrial mass seen on pelvic ultrasound. POSTOPERATIVE DIAGNOSIS: Proliferative endometrium with endometrial polyps. SURGEON: Peewee Cline MD ASSISTANTS: Jaleesa Hess PA-C Academic Affairs Vice President was necessary to help with retraction and manipulation of instruments in order to providefor a safe procedure. ANESTHESIA: General. OPERATION: 1 exam under anesthesia 2. Dilation and curettage 3. Hysteroscopy 4. MyoSure resection of endometrial polyp. FINDINGS: Normal female appearance. ESTIMATED BLOOD LOSS: 5 millimeters DRAINS: None FLUIDS: 1000 milliliters mL Crystalloid URINE OUTPUT: 100 milliliters SPECIMEN: 1.Endometrial polyp resection with endometrial mass by MyoSure 2. Sharp endometrial curettings COMPLICATIONS: None. CONDITION: Stable. INDICATIONS AND HISTORY: Patient's history of menorrhagia was seen in the ER where ultrasound done showed endometrial mass. DESCRIPTION OF OPERATION: The patient was identified, and the procedure was verified. OPERATIVE RECORD DESCRIPTION OF OPERATION: Patient is taken to the operating room was she was prepped and draped in normal sterile fashion in dorsal lithotomy position. Exam under anesthesia is as dictated above. Bladder is catheterized and 100 cubic centimeters of clear urine is obtained. Single-tooth tenaculum was used to grab the cervix. Weighted speculum was placed in the vagina. Cervix is dilated in series. Operative hysteroscope was placed into the uterine cavity. Findings of the uterus as dictated above.The MyoSure device was passed through the outflow tract of the hysteroscope. Resection of the endometrial polyp and endometrium was performed with the MyoSure device. It was removed and a size 2 sharp curette introduced in the uterine cavity. Curettage was performed in all 4 quadrants until a gritty texture is obtained. Both specimens sent to pathology for pathologic analysis. All instruments removed from the uterus and the vagina and accounted for x2 including sponges needles and retractors. There was good hemostasis. The patient is sent to recovery in stable condition. Peewee Cline MD 07/18/2023 10:07 AM Peewee Cline MD 07/18/2023 10:03 AM documented in this encounter Plan of Treatment Upcoming Encounters Date Type Department Care Team (Late st Contact Info) Description 07/23/2023 11:30 AM EST Telemedicine Psychiatry, [address] [place] [address] Jose Wise CRNP [address] [place] [place] [address] 08/07/2023 11:30 AM EST Office Visit Gynecology/Obstetrics [facility] [address] [place] [address] Peewee Cline MD [address] [place] [address] 09/20/2023 3:00 PM EST Office Visit Rheumatology [address] [place] [phone] [address] [place] CRNP [address] [facility] [place] [address] 10/18/2023 8:00 AM EST Imaging Radiology [facility] [facility] [address] [place] [address] 05/04/2024 1:00 PM EDT Office Visit Gynecology/Obstetrics [facility] [address] [facility] [place] [address] Jaleesa Hess PA-C [address] [place] [address] Pending Results Name Type Priority Associated Diagnoses Date /Time SURGICAL PATHOLOGY Pathology Routine Uterine mass 07/18/2023 9:37 AM EST Scheduled Orders Name Type Priority Associated Diagnoses Orde r Schedule SURGICAL PATHOLOGY Pathology Routine Uterine mass Release Upon Ordering for 1 Occurrences starting 07/18/2023, 1 completed Scheduled Procedures Name Priority Associated Diagnoses Date/Ti me HYSTEROSCOPY WITH BIOPSY AND /OR POLYPECTOMY WITH OR WITHOUT D&C Uterine mass 07/18/2023 9:00 AM EST PELVIC EXAMINATION UNDER ANESTHESIA Uterine mass 07/18/2023 9:00 AM EST Health Maintenance Due Date Last Done Comments [...] this encounter Medical Devices Implanted Type Area Floor Service Worker Spring Device Identifier Shelf Expiration Date Model / Serial / Lot Syr Pf 2ml [facility] 100-300 - [id number] Implanted:Qty: 1 on 04/18/2023 by Chao King DO at OR [facility] [employer] [facility] [id number] 10/14/2025 [id number] / / [id number] documented as of this encounter Procedures Procedure Name Priority Date/Time Associated Diagnosis Comments URINE SCREEN, POINT OF CARE (ENTER/EDIT) STAT 07/18/2023 8:00 AM EST documented in this encounter Results * URINE SCREEN, POINT OF CARE (ENTER/EDIT) (07/18/2023 8:00 AM EST) hCG Beta, Urine Negative Negative Procedural Control Valid? Yes Lot Number [id number] Expiration Date 2024-08-23 Urine 07/18/2023 8:00 AM EST Brianda Daniel MD LAB POINT OF CA RE TEST ENTER/EDIT ORDERABLES documented in this encounter Visit Diagnoses Diagnosis Uterine mass Other specified symptom associated with female genital organs documented in this encounter Administered Medications Inactive Administered Medications - up to 3 most recent administrations Medication Order MAR Action Action Date Dose Rate Site Acetaminophen (Tylenol) tab 650 mg 650 mg, Oral, PRN Pain, Mild, Starting on Nazia 07/18/23 at 1032, Until Nazia 07/18/23 at 1501, For 1 dose, Maximum of 4 grams (4000 mg) per day., Post-op check patch placement order QSHIFT, First dose on Nazia 07/18/23 at 0930, Until Discontinued, Routine, Scopolamine (TRANSDERM SCOP) patch placement check, Pre-Op dexAMETHasone Sodium Phosphate (Decadron) 4 MG/ML inj 4 mg 4 mg, IV Push, PRN Nausea, Starting on Nazia 07/18/23 at 0957, Until Nazia 07/18/23 at 1501, For 1 dose, PROTECT FROM LIGHT, PACU fentaNYL (PF) inj 25 mcg 25 mcg, IV Push, PRN Pain, Severe, Starting on Nazia 07/18/23 at 0957, Until Nazia 07/18/23 at 1501, For 6 doses, When given IV Push its recommended that the dose be given over 3 to 5 minutes., PACU isolyte-S pH 7.4 infusion Intravenous, at 100 mL/hr, Plasma-LYTE 148, isolyte-S, and isolyte-S pH 7.4 are considered equivalent - including for MAR barcode scanning., CONTINUOUS, Starting on Nazia 07/18/23 at 0845, Until Nazia 07/18/23 at 1501, Pre-Op Restarted 07/18/2023 9:46 AM EST Continue from Pre-Op 07/18/2023 9:11 AM EST 100 mL/hr New Bag 07/18/2023 8:17 AM EST 100 mL/hr ondansetron (Zofran) inj 4 mg 4 mg, IV Push, PRN Nausea, Starting on Nazia 07/18/23 at 0957, Until Nazia 07/18/23 at 1501, For 1 dose, PACU Scopolamine (Transderm Scop) patch 1 mg 1 mg (1 Patch), Transdermal, ONCE, On Nazia 07/18/23 at 0930, For 1 dose, Do NOT cut the patch. All Scopolamine patches deliver 1 mg over 72 hours. Remove any Scopolamine patches the patient may currently be wearing prior to applying the new patch. , Pre-Op Patch Applied 07/18/2023 8:52 AM EST 1 mg Other-Specify documented in this encounter Active and Recently Administered Medications Times are shown in EST. Scheduled Medication Order 07/16/2023 07/17/2023 07/18/2023 check patch placement order QSHIFT, First dose on Nazia 07/18/23 at 0930, Until Discontinued, Routine, Scopolamine (TRANSDERM SCOP) patch placement check, Pre-Op 0930 (Due) Scopolamine (Transderm Scop) patch 1 mg 1 mg (1 Patch), Transdermal, ONCE, On Nazia 07/18/23 at 0930, For 1 dose, Do NOT cut the patch. All Scopolamine patches deliver 1 mg over 72 hours. Remove any Scopolamine patches the patient may currently be wearing prior to applying the new patch. , Pre-Op 0852 (Patch Applied - Provider: Sujata Lee RN - Comment: posterior left ear)1101 (Due: Patch Removed - Provider: Discharge, Physician - Comment: Time automatically adjusted from order being discontinued) Continuous Medication Order 07/16/2023 07/17/2023 07/18/2023 isolyte-S pH 7.4 infusion Intravenous, at 100 mL/hr, Plasma-LYTE 148, isolyte-S, and isolyte-S pH 7.4 are considered equivalent - including for MAR barcode scanning., CONTINUOUS, Starting on Nazia 07/18/23 at 0845, Until Nazia 07/18/23 at 1501, Pre-Op 0817 (New Bag - Prov ider: Sujata Lee RN)0911 (Continue from Pre-Op - Provider: Ely Kam CRNA)0945 (Paused - Provider: Ely Kam CRNA - Comment: Switch to gravity)0946 (Restarted - Provider: Ely Kam CRNA) PRN Medication Order 07/16/2023 07/17/2023 07/18/2023 Acetaminophen (Tylenol) tab 650 mg 650 mg, Oral, PRN Pain, Mild, Starting on Nazia 07/18/23 at 1032, Until Nazia 07/18/23 at 1501, For 1 dose, Maximum of 4 grams (4000 mg) per day., Post-op dexAMETHasone Sodium Phosphate (Decadron) 4 MG/ML inj 4 mg 4 mg, IV Push, PRN Nausea, Starting on Nazia 07/18/23 at 0957, Until Nazia 07/18/23 at 1501, For 1 dose, PROTECT FROM LIGHT, PACU fentaNYL (PF) inj 25 mcg 25 mcg, IV Push, PRN Pain, Severe, Starting on Nazia 07/18/23 at 0957, Until Nazia 07/18/23 at 1501, For 6 doses, When given IV Push its recommended that the dose be given over 3 to 5 minutes., PACU ondansetron (Zofran) inj 4 mg 4 mg, IV Push, PRN Nausea, Starting on Nazia 07/18/23 at 0957, Until Nazia 07/18/23 at 1501, For 1 dose, PACU silver nitrate applicator (CANCELED) ONCE PRN INTRA PROCEDURE, Starting on Nazia 07/18/23 at 0948, Until Nazia 07/18/23 at 0948, Intra-Op 0948 (Given - Provid er: Peewee Cline MD) sodium chloride IR 0.9 % irrigation (CANCELED) ONCE PRN INTRA PROCEDURE, Starting on Nazia 07/18/23 at 0933, Until Nazia 07/18/23 at 0946, Intra-Op 0933 (Given - Provid er: Peewee Cline MD - Comment: vaginal; Deficit: 270) documented in this encounter Care Teams Textile Machinery Sales Representative Relationship Specialty Start Date End Date Dayday Wahl MD [address] [facility] [place] [address] PCP - General Family Medicine 03/18/20 documented as of this encounter
--- OUTSIDE RECORDS SUMMARY | 2023-12-05 10:40 | External Medical Summary | Summary of Care ---
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*; Endometrial mass Allergies No known active allergiesdocumented as of this encounter (statuses as of 06/07/2023) Medications Medication Sig Dispensed Refills Start Date [...] THE DAY 90 Capsule 3 04/15/2023 Active documented as of this encounter (statuses as of 06/07/2023) Active Problems Problem Noted Date PTSD (post-traumatic stress disorder) 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---have spontaneously bled -avoid estrogen containing OCP Prediabetes 10/29/2022 Overview: Per Prediabetes protocol Rheumatoid arthritis of multiple sites w ithout rheumatoid factor 10/10/2022 Depression with anxiety 09/24/2022 HTN, goal below 130/80 08/15/2021 Obesity, Class II, BMI 35-39.9, isolated (see actual BMI) 08/14/2021 Gastroesophageal reflux disease with eso phagitis 03/21/2020 documented as of this encounter (statuses as of 06/07/2023) Resolved Problems Problem Noted Date Resolved Date Seronegative polyarthritis 08/09/202001/28 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 Never true 01/24/2023 Within the past 12 months, t he food you bought just didn't last and you didn't have money to get more. Never true 01/24/2023 Sex Assigned at Date Recorded Female 11/29/2021 5:32 PM E DT Job Start Date Occupation Industry Not on file Not on file Not on file documented as of this encounter Last Filed Vital Signs Vital Sign Reading Time Taken Comments Blood Pressure - - Pulse - - Temperature - - Respiratory Rate - - Oxygen Saturation - - Inhaled Oxygen Concentration - - Weight 102.5 kg (226 lb) 05/16/2023 12:26 PM EDT Height 159.4 cm (5' 2.75") 05/16/2023 12:26 PM E DT Body Mass Index 40.35 05/16/2023 12:26 PM EDT documented in this encounter Progress Notes * Peewee Mas MD - 05/16/2023 12:53 PM EDT A ''time out'' was initiated by me prior to procedure.The patient was identified by name and date of . The correct procedure, and correct site identified. Correct positioning (as applicable). There is availability of necessary equipment. Patient states she not allergic to latex. Patient is here for colposcopy after having a pap showing: LGSIL. Hxof LEEP in 2021 Previous pap smears:LGSIL LMP: Reviewed in detail procedure, risks, benefits and indications. PE: ext gen: vagina: cervix: TMZ Acetowhite lesions: Mosaicism: Abnormal vessels: Satisfactory Colpo: A/P: Colpo LGSIL with pap S/p LEEP in 2021 ECC Obtained Check path including RTC pending above results. Reviewed instructions including no sex, tampons, or douching for at least 5 days Lara Cárdenas MD Problem visit Pt told me before the above scheduled procedure that she was seen at [facility] ER last month for heavy bleeding Sono done showed possible endometrial mass Sono from ER visit is reviewed Endometrial biopsy is therefore performed Plan If bx is negative , will schedule for D&C with hysteroscopy A ''time out'' was initiated by me prior to procedure.The patient was identified by name and date of . The correct procedure, and correct site identified. Correct positioning (as applicable). There is availability of necessary equipment. Patient states she not allergic to latex. Patient consent discussed and obtained. No latex allergy Cervix visualized and prepped with Betadine. Anterior lip of the cervix grasped with single tooth tenaculum. Cervix dilated with os finder. Pipelle easily introduced into cervical canal and endometrial tissue amounts obtained and sent to pathology. Patient tolerated procedure well. Minimal bleeding noted at end of procedure. documented in this encounter Nursing Notes * Yanelis Merritt LPN - 05/16/2023 12:15 PM EDT Pt is here for colpo 11/2721 Pap ascus cannot r/o high grade extensive LGSIL/ + HPV 03/28/22 Colpo Benign 07/11/22 LEEP Benign in OR 04/03/23 PAP LGSIL documented in this encounter Plan of Treatment Upcoming Encounters Date Type Specialty Care Team Description 06/18/2023 Imaging Radiology 06/18/2023 Imaging Radiology 07/02/2023 Office Visit Gynecology Obstetrics Peewee Mas MD [address] [place] [address] 07/12/2023 Telemedicine Psychiatry Jose Wise CRNP [address] [place] [address] 07/18/2023 Hospital Encounter Surgery Peewee Mas MD [address] [place] [address] 07/18/2023 Surgery Surgery Peewee Mas MD [address] [place] [address] HYSTEROSCOPY WITH BIOPSY AND/OR POLYPECTOMY WITH OR WITHOUT D&C 08/07/2023 Office Visit Gynecology Obstetrics Peewee Mas MD [address] [place] [address] 09/20/2023 Office Visit Rheumatology Av Austin CRNP [address] [place], [place] [address] [address] 10/18/2023 Imaging Radiology 05/04/2024 Office Visit Gynecology Obstetrics Jaleesa Hess PA-C [address] [address] Scheduled Procedures Name Priority Associated Diagnoses Date/Ti me HYSTEROSCOPY WITH BIOPSY AND /OR POLYPECTOMY WITH OR WITHOUT D&C Uterine mass 07/18/2023 7:45 AM EST PELVIC EXAMINATION UNDER ANESTHESIA Uterine mass 07/18/2023 7:45 AM EST Health Maintenance Due Date Last Done Comments Pneumococcal Vaccine: Pediatrics (0 to 5 Years) and At-Risk Patients (6 to 64 Years) (1 - PCV) 1987 HIV Screening 1996 Albumin/Creatinine Ratio 1999 COVID-19 Vaccine (3 - Moderna risk series) 11/02/2020 10/05/2020, 09/07/2020 Depression Screening 12/05/2022 12/05/2021 Influenza Vaccine (FLU shot) (#1) 2023 08/03/2022, 05/16/2020, 05/16/2020 HbA1c 10/26/2023 10/25/2022 GFR 04/19/2024 04/19/2023, 08/0 11/2022, 02/11/2023, Additional history exists Mammogram 06/04/2024 06/04/2023, 12/19/2021 Pap Smear 04/03/2026 04/03/2023, 11/18, 08/29/2016 Lipid Panel 10/26/2027 10/25/2022 Cervical Cancer Screening 04/03/2028 HPV/Co-Test 04/03/2028 04/03/2023 DTaP,Tdap,and Td Vaccines (2 - Td or Tdap) 03/27/2031 03/27/2021 Hepatitis B Completed 11/14/2020, 05/21, 05/16/2020 GARDASIL-HPV IMMUNIZATION SERIES Aged Out No longer eligible based on patient's age to complete this topic MENINGOCOCCAL (MENACTRA/MENVEO) Aged Out No longer eligible based on patient's age to complete this topic documented as of this encounter Medical Devices Implanted Type Area Custom Feed Mill Operator Helper Device Identifier Shelf Expiration Date Model / Serial / Lot Syr Pf 2ml Embospheres 100-300 - [id number] Implanted:Qty: 1 on 04/18/2023 by Chao King DO at OR [facility] [employer] [facility] [id number] 10/14/2025 [id number] / / [id number] documented as of this encounter Procedures Procedure Name Priority Date/Time Associated Diagnosis Comments SURGICAL PATHOLOGY Routine 05/16/2023 1: 19 PM EDT Endometrial mass URINE SCREEN, POINT OF CARE (ENTER/EDIT) Routine 05/16/2023 Endometrial mass documented in this encounter Results * SURGICAL PATHOLOGY (05/16/2023 1:19 PM EDT) Final Diagnosis A. Endocervix, curettage: -- Benign endocervical glands, negative for dysplasia. B. Endometrium, biopsy: -- Scant inactive endometrium with tubal metaplasia. -- Neither hyperplasia nor neoplasia identified. 05/20/2023 4:34 PM EDT [facility] Clinical History LGSIL on pap 05/20/2023 4:34 PM EDT [facility] Gross Description A. Endocervix. Received in formalin with a container labeled with "Mary Kate Howard", "[id number]", "1980" and " ECC". Received is a 1.5 x 1.2 x 0.1 cm aggregate of mucoid material. The specimen is submitted entirely in cassette A1. Gross By: MR Dunaway. Endometrium. Received in formalin with a container labeled with "Mary Kate Howard", "[id number]", "1980" and " EMB". Received is a 2.5 x 2.4 x 0.3 cm aggregate of soft pink-red tissue admixed with mucus and clotted blood. The specimen is submitted entirely in cassette B1. Gross By: 05/20/2023 4:34 PM EDT LABORATORY [facility] Microscopic Description A, B. A microscopic examination was performed. 05/20/2023 4:34 PM EDT LABORATORY [facility] Sign Out Location Pathologist sign out performed at [facility] ([facility]), [address] [place] [address]. 05/20/2023 4:34 PM EDT LABORATORY [facility] Photographic images and diagrams represent lucas findings in this case; they are not intended to replace a complete review of the final diagnostic report. The following statement applies to Flow Cytometry, Histology, In situ Hybridization Assays and Molecular Genetics. This test was developed and performed at [facility] and its performance characteristics determined by [facility] [employer]. It has not been cleared or approved by the U.S. Food and Drug Administration. The FDA has determined that such clearance or approval is not necessary. This test is used for clinical purposes. It should not be regarded as investigational or for research. Special stains, including histochemical stains, and studies using immunologic and KELSI methodology (where applicable) are performed with appropriate positive and negative control reactions. 05/20/2023 4:34 PM EDT LABORATORY [facility] Tissue Entire endometrium / Unknown Non-blood Collection / Unknown 05/16/2023 1:19 PM EDT 05/16/2023 1:19 PM EDT Specimen from wound (specimen) Entire endometrium / Unknown 05/16/2023 1:19 PM EDT 05/16/2023 1:19 PM EDT Peewee Mas MD LAB PATHOLOGY [facility] LABORATORY [facility] [address] [facility] [place] [address] * URINE SCREEN, POINT OF CARE (ENTER/EDIT) (05/16/2023) hCG Beta, Urine Negative Negative Procedural Control Valid? 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
--- OUTSIDE RECORDS SUMMARY | 2023-12-05 10:40 | External Medical Summary | Summary of Care ---
Author Name Unknown Organization [facility] Address [address] [place] [address] Phone [phone] Care Team Providers Care Wire Stripping Machine Operator Name Role Phone Dayday Wahl MD Primary Care Provider [phone] Reason for Visit * Reason Comments Outpatient Testing Encounter Details Date Type Department Care Team (Late st Contact Info) Description 07/02/2023 4:10 PM EST Laboratory Laboratory, [facility] [address] [place] [address] [facility] [address] [place] [address] Preop testing Allergies No known active allergiesdocumented as of this encounter (statuses as of 07/02/2023) Medications Medication Sig Dispensed Refills Start Date [...] as of this encounter (statuses as of 07/02/2023) Active Problems Problem Noted Date Diagnosed Date PTSD (post-traumatic stress disorder) 01/29/2023 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---have spontaneously bled -avoid estrogen containing OCP Prediabetes 10/29/2022 Overview: Per Prediabetes protocol Rheumatoid arthritis of [facility] sites without rheumatoid factor 10/10/2022 Depression with anxiety 09/24/2022 HTN, goal below 130/80 08/15/2021 Obesity, Class II, BMI 35-39.9, isolated (see ac tual BMI) 08/14/2021 Gastroesophageal reflux disease with esophagitis 03/21/2020 documented as of this encounter (statuses as of 07/02/2023) Resolved Problems Problem Noted Date Diagnosed Date Resolved Date Seronegative polyarthritis 08/09/2020 0 01/28/2023 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 Rheumatoid arthritis involvi ng multiple sites with positive rheumatoid factor 03/18/2020 08/09/20 20 documented as of this encounter (statuses as of 07/02/2023) Immunizations Name Administration Dates Next Due COVID-19 [...] Upcoming Encounters Date Type Department Care Team (Latest Contact Info) Description 07/12/2023 10:00 AM [facility] [address] [place] [address] Jose Wise CRNP [address] [place] [address] 07/18/2023 9:20 AM EST Hospital Encounter OR [facility], Operating Room [facility] [address] [place] [phone] Peewee Mas MD [address] [place] [address] 07/18/2023 9:20 AM EST - 07/18/2023 10:17 AM EST Surgery OR [facility], Operating Room [facility] [address] [place] [phone] Peewee Mas MD [address] [place] [address] HYSTEROSCOPY WITH BIOPSY AND/OR POLYPECTOMY WITH OR WITHOUT D&C 08/07/2023 11:30 AM EST Office Visit Gynecology/Obstetr [facility] [address] [place] [address] Peewee Mas MD [address] [place] [address] 09/20/2023 3:00 PM EST Office Visit Rheumatology [address] [place] [phone] Av Austin CRNP [address] [place] [address] [place] [address] 10/18/2023 8:00 AM EST Imaging Radiology [facility] 1st Floor, [place] [address] [place] [address] 05/04/2024 1:00 PM EDT Office Visit Gynecology/Obstetr [facility] [place] [address] Jaleesa Hess, PADieterC [address] [place] [address] Pending Results Name Type Priority Associated Diagnoses Date /Time CBC WITH WBC DIFFERENTIAL Lab Routine Preop testing 07/02/2023 4:06 PM EST CBC Lab Routine Preop testing 07/02/2023 4:06 PM EST DIFFERENTIAL, AUTOMATED Lab Routine Preop testing 07/02/2023 4:06 PM EST Scheduled Procedures Name Priority Associated Diagnoses Date/Ti me HYSTEROSCOPY WITH BIOPSY AND /OR POLYPECTOMY WITH OR WITHOUT D&C Uterine mass 07/18/2023 9:20 AM EST PELVIC EXAMINATION UNDER ANESTHESIA Uterine mass 07/18/2023 9:20 AM EST Health Maintenance Due Date Last Done Comments Pneumococcal Vaccine: Pediatrics (0 to 5 Years) and At-Risk Patients (6 to 64 Years) (1 - PCV) 1987 HIV Screening 1996 Albumin/Creatinine Ratio 1999 COVID-19 Vaccine (3 - Moderna risk series) 11/02/2020 10/05/2020, 09/07/2020 Depression Screening 12/05/2022 12/05/2021 Influenza Vaccine (FLU shot) (#1) 2023 08/03/2022, 05/16/2020, 05/16/2020 HbA1c 10/26/2023 10/25/2022 GFR 04/19/2024 04/19/2023, 08/11/2022, [...] this encounter Medical Devices Implanted Type Area Java Web Application Developer Device Identifier Shelf Expiration Date Model / Serial / Lot Syr Pf 2ml [facility] 100-300 - [id number] Implanted:Qty: 1 on 04/18/2023 by Chao King DO at OR [facility] [email or web address] [facility] [id number] 10/14/2025 S220GH / / [id number] documented as of this encounter Visit Diagnoses Diagnosis Preop testing Preoperative examination, unspecified Uterine mass Other specified symptom associated with female genital organs documented in this encounter Care Teams Wire Stripping Machine Operator Relationship Specialty Start Date End Date Dayday Wahl MD [address] [facility] [place] [address] PCP - General Family Medicine 03/18/20 documented as of this encounter
--- OUTSIDE RECORDS SUMMARY | 2023-12-05 10:40 | External Medical Summary | Summary of Care ---
Author Name Unknown Organization [facility] Address [address] [place] [address] Phone [phone] Care Team Providers Care Sonar Watchstander Name Role Phone Dayday Wahl MD Primary Care Provider [phone] Reason for Visit * Reason Comments Pre-Op Testing Encounter Details Date Type Department Care Team (Late st Contact Info) Description 07/02/2023 3:30 PM EST Office Visit Gynecology/Obstetrics [facility] [address] [place] [address] Peewee Mas MD [address] [place] [address] Preop testing* Allergies No known active allergiesdocumented as of [...] Overview: Per Prediabetes protocol Rheumatoid arthritis of [facility] without rheumatoid factor 10/10/2022 Depression [...] Sign Reading Time Taken Comments Blood Pressure 138/94 07/02/2023 3:31 PM EST Pulse - - Temperature 36.3 C (97.3 F) 07/02/2023 3:31 PM ES T Respiratory Rate - - Oxygen Saturation - - Inhaled Oxygen Concentration - - Weight 100.7 kg (222 lb) 07/02/2023 3:31 PM EST Height 159.4 cm (5' 2.75") 07/02/2023 3:31 PM ES T Body Mass Index 39.64 07/02/2023 3:31 PM EST documented in this encounter Progress Notes * Peewee Mas MD - 07/02/2023 4:03 PM EST Pt here for preop History and physical examination done Consnet obtained documented in this encounter H&P Notes * Peewee Mas MD - 07/02/2023 4:00 PM EST Patient Name: Mary Kate Howard Patient Pt is a 43 yo Pt was seen at [facility] on 04/19/[address] for menorrhagia. She had Ct [...] performed by Chao King DO at OR [facility] REMOVE CERVIX CONE W/LOOP ELECTRODE Bilateral 07/11/2022 LOOP ELECTROSURGERY EXCISION PROCEDURE performed by Peewee Mas MD at OR [facility] Social Hx: Social History Socioeconomic History [...] gait A/P Uterine mass on sonogram @ [facility] ER Visit Pt agreeable to D&C with hysteroscopy Pt scheduled for the ff procedures 1.Examination under anesthesia 2.Dilation and curettage 3.Hysterosocpy documented in this encounter Nursing Notes * Vero Hollingsworth LPN - 07/02/2023 4:01 PM EST DOS 07/18/23. ENRIQUE GREENFIELD, hysteroscopy, removal of endometrial mass with Myosure. documented in this encounter Plan of Treatment Upcoming Encounters Date Type Department Care Team (Latest Contact Info) Description 07/12/2023 10:00 AM EST [facility] [address] [place] [address] Jose Wise CRNP [address] [place] [address] 07/18/2023 9:20 AM EST Hospital Encounter OR [facility], Operating Room [facility] [address] [place] [address] Peewee Mas MD [address] [place] [address] 07/18/2023 9:20 AM EST - 07/18/2023 10:17 AM EST Surgery OR [facility], Operating Room [facility] [address] [place] [address] Peewee Mas MD [address] [place] [address] HYSTEROSCOPY WITH BIOPSY AND/OR POLYPECTOMY WITH OR WITHOUT D&C 08/07/2023 11:30 AM EST Office Visit [facility]ne[facility] [address] [place] [address] Peewee Mas MD [address] [place] [address] 09/20/2023 3:00 PM EST Office Visit Rheumatology [address] [place] [phone] Av Austin CRNP [address] [facility] [place] [address] 10/18/2023 8:00 AM EST Imaging Radiology [facility] 1st Floor, [place] [address] [facility] [place] [address] 05/04/2024 1:00 PM EDT Office Visit Gynecology/Obstetr ics [facility] [address] [facility] [facility] [place] [address] Jaleesa Hess PA-C [address] [place] [address] Pending Results Name Type Priority Associated Diagnoses Date /Time CBC WITH WBC DIFFERENTIAL Lab Routine Preop testing 07/02/2023 4:06 PM EST Scheduled Orders Name Type Priority Associated Diagnoses Orde r Schedule CBC WITH WBC DIFFERENTIAL Lab Routine Preop testing Expected: 07/02/2023 (Approximate), Expires: 07/02/2024 Scheduled Procedures Name Priority Associated Diagnoses Date/Ti [...] this encounter Medical Devices Implanted Type Area Optical Worker Device Identifier Shelf Expiration Date Model / Serial / Lot Syr Pf 2ml [facility] 100-300 - [id number] Implanted:Qty: 1 on 04/18/2023 by Chao King DO at OR [facility] [employer] [id number] 10/14/2025 S220GH / / [id number] documented as of this encounter Visit Diagnoses Diagnosis Preop testing- Primary Preoperative examination, unspecified Uterine mass Other specified symptom associated with female genital organs documented in this encounter Care Teams Sonar Watchstander Relationship Specialty Start Date End Date Dayday Wahl MD [address] [place] [address] PCP - General Family Medicine 03/18/20 documented as of this encounter
--- OUTSIDE RECORDS SUMMARY | 2023-12-05 10:40 | External Medical Summary | Summary of Care ---
Author Name Unknown Organization [facility] Address [address] [place] [address] Phone [phone] Care Team Providers Care Spinner Concrete Pipe Name Role Phone Dayday Wahl MD Primary Care Provider [phone] Reason for Visit * Reason Comments Outpatient Testing Encounter Details Date Type Department Care Team (Late st Contact Info) Description 09/20/2023 4:00 PM EST Laboratory Laboratory [address] [place] [phone] [place] [address] Encounter for long-term (current) use of medications Allergies No known active allergiesdocumented as of [...] Overview: Per Prediabetes protocol Rheumatoid arthritis of [facility] sites without rheumatoid factor [...] Description 10/18/2023 8:00 AM EST Imaging Radiology [address] [place] [address] 11/08/2023 1:30 PM EDT Office Visit Rheumatology [facility] [address] [place] [phone] Av Austin CRNP [address] [facility] [place] [address] 11/21/2023 9:40 AM EDT Office Visit Hepatology, [facility] [address] [place] [address] Vikki Louie DO [address] [place] [address] 05/04/2024 1:00 PM EDT Office Visit Gynecology/Obstetrics [facility] [address] [place] [address] Jaleesa Hess PA-C [address] [place] [address] Pending Results Name Type Priority Associated Diagnoses Date /Time CBC WITH WBC DIFFERENTIAL Lab Routine Encounter for long-term (current) use of medications 09/20/2023 3:49 PM EST CBC Lab Routine Encounter for long-term (current) use of medications 09/20/2023 3:49 PM EST DIFFERENTIAL, AUTOMATED Lab Routine Encounter for long-term (current) use of medications 09/20/2023 3:49 PM EST Health Maintenance Due Date Last Done [...] this encounter Medical Devices Implanted Type Area Grocery Specialist Device Identifier Shelf Expiration Date Model / Serial / Lot Syr Pf [facility]ml [facility] 100[facility]300 - [id number] Implanted:Qty: 1 on 04/18/2023 by Chao King DO at OR [facility] [employer] [facility] [id number] 10/14/2025 S220 / / [id number] documented as of this encounter Visit Diagnoses Diagnosis Encounter for long-term (current) use of medications Encounter for long-term (current) use of other medications documented in this encounter Care Teams Spinner Concrete Pipe Relationship Specialty Start Date End Date Dayday Wahl MD [address] [place] [address] PCP - General Family Medicine 03/18/20 documented as of this encounter
--- OUTSIDE RECORDS SUMMARY | 2023-12-05 10:40 | External Medical Summary | Summary of Care ---
Author Name Unknown Organization [facility] Address [address] [place] [address] Phone [phone] Care Team Providers Care Technical Writer And Editor Name Role Phone Dayday Wahl MD Primary Care Provider [phone] Reason for Visit * Reason Comments Underwriting Support Manager Return Encounter Details Date Type Department Care Team (Late st Contact Info) Description 08/07/2023 11:30 AM EST Office Visit Gynecology/Obstetric s Joanna Vegas [address] [place] [address] Peewee Mas MD [address] [place] [address] Postoperative state* Allergies No known active allergiesdocumented as of this encounter (statuses as of 08/07/2023) Medications Medication Sig Dispensed Refills Start Date [...] every afternoon. 30 Capsule 2 07/23/2023 Active documented as of this encounter (statuses as of 08/07/2023) Active Problems Problem Noted Date Diagnosed Date PTSD (post-traumatic stress disorder) 01/29/2023 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---have spontaneously bled -avoid estrogen containing OCP Prediabetes 10/29/2022 Overview: Per Prediabetes protocol Rheumatoid arthritis of 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 Rheumatoid arthritis involvi ng multiple sites with positive rheumatoid factor 03/18/2020 08/09/20 20 documented as of this encounter (statuses as of 08/07/2023) Immunizations Name Administration Dates Next Due COVID-19 [...] Sign Reading Time Taken Comments Blood Pressure 124/80 08/07/2023 11:02 AM EST Pulse - - Temperature - - Respiratory Rate - - Oxygen Saturation - - Inhaled Oxygen Concentration - - Weight 95.7 kg (211 lb) 08/07/2023 11:02 AM EST Height 159.4 cm (5' 2.76") 08/07/2023 11:[address] Body Mass Index 37.66 08/07/2023 11:02 AM EST documented in this encounter Progress Notes * Peewee Mas MD - 08/07/2023 11:12 AM EST Patient is s/p D&C and doing well No SOB,chills,dysuria frequency or fever. Tolerating food well. +ve BM Reviewed path report with pt Pt is recommended to continue with post op instructions and care. documented in this encounter Plan of Treatment Upcoming Encounters Date Type Department Care Team (Late st Contact Info) Description 09/02/2023 11:30 AM EST Telemedicine Psychiatry, [facility] [address] [facility] [place] [address] Jose Wise CRNP [address] [place] [address] 09/20/2023 3:00 PM EST Office Visit Rheumatology [address] [place] [phone] Av [place] CRNP [facility] [place] [address] 10/18/2023 8:00 AM EST [facility] [address] [facility] [place] [address] 05/04/2024 1:00 PM EDT Office Visit Gynecology/Obstetrics [facility] [address] [facility] [place] [address] Jaleesa Hess PA-C [address] [place] [address] Health Maintenance Due Date Last Done Comments [...] this encounter Medical Devices Implanted Type Area Surveying Crew Stake Runner Device Identifier Shelf Expiration Date Model / Serial / Lot Syr Pf 2ml Embospheres 100-300 - [id number] Implanted:Qty: 1 on 04/18/2023 by Chao King DO at OR [facility] [employer] [facility] [id number] 10/14/2025 [id number] / / [id number] documented as of this encounter Visit Diagnoses Diagnosis Postoperative state- Primary Other postprocedural status documented in this encounter Care Teams Technical Writer And Editor Relationship Specialty Start Date End Date Dayday Wahl MD [address] [place] [address] PCP - General Family Medicine 03/18/20 documented as of this encounter
--- OUTSIDE RECORDS SUMMARY | 2023-12-05 10:40 | External Medical Summary ---
Author Name Unknown Address Unknown Organization [id number]:[facility]ORY [facility] [place] - [address] [facility] [place] [address] Laboratory Report Ordering Provider Test Date Status WILLIAM KNOX 07/02/2023 16:06:04 Final Observation Date Value Abnormality Reference (Units ) Status SYNC LEUKOCYTES IN BLOOD BY AUTOMATED COUNT 07/02/2023 16:06:04 5.28 4.00-10.80 (K/uL) Final Segs 07/02/2023 16:06:04 31.5 Below low normal 40.0-75.0 (%) Final Lymphs % 07/02/2023 16:06:04 55.7 Above high normal 18.0-42.0 (%) Final Monos 07/02/2023 16:06:04 10.2 1.0-11.0 (%) Final Eosinophils 07/02/2023 16:06:04 1.3 0.0-6.0 (%) Final Basos 07/02/2023 16:06:04 0.9 0.0-2.0 (%) Final Immature Granulocyte, Percent 07/02/2023 16:06:04 0.4 0.0-2.0 (%) Final Absolute Segs 07/02/2023 16:06:04 1.66 Below low normal 1.80-7.70 (K/uL) Final Lymphs, absolute 07/02/2023 16:06:04 2.94 1.00-4.80 (K/ul) Final Monos, Abs 07/02/2023 16:06:04 0.54 0.00-1.10 (K/uL) Final Eos, Abs 07/02/2023 16:06:04 0.07 0.00-0.70 (K/uL) Final Basos, Abs 07/02/2023 16:06:04 0.05 0.00-0.20 (K/uL) Final Immature Granulocytes, Number 07/02/2023 16:06:04 0.02 0.00-0.20 (K/uL) Final Performing Location [facility] [place] - [address] [facility] [address]
--- OUTSIDE RECORDS SUMMARY | 2023-12-05 10:40 | External Medical Summary | Summary of Care ---
Author Name Unknown Organization [facility] Address [address] [place] [address] Phone [phone] Care Team Providers Care Chip Unloader Name Role Phone Dayday Wahl MD Primary Care Provider [phone] Reason for Visit * - Authorized Specialty Diagnoses / Procedures Referred By Gabriela t Referred To Contact Referral ID Status Reason Start Date Expiration Date V isits Requested Visits Authorized [id number] Authorized 09/19/2022 09/18/2023 999 [id number] Encounter Details Date Type Department Care Team (Late st Contact Info) Description 09/02/2023 11:30 AM [facility] [address] [place] [address] Jose Wise CRNP [address] [facility] [place] [address] No Show for psych appt* Allergies No known active allergiesdocumented as of this encounter (statuses as of 09/02/2023) Medications Medication Sig Dispensed Refills Start Date [...] as of this encounter (statuses as of 09/02/2023) Active Problems Problem Noted Date Diagnosed Date PTSD (post-traumatic stress disorder) 01/29/2023 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---have spontaneously bled -avoid estrogen containing OCP Prediabetes 10/29/2022 Overview: Per Prediabetes protocol Rheumatoid arthritis of [facility] sites without rheumatoid factor 10/10/2022 Depression with anxiety 09/24/2022 HTN, goal below 130/80 08/15/2021 Obesity, Class II, BMI 35-39.9, isolated (see ac tual BMI) 08/14/2021 Gastroesophageal reflux disease with esophagitis 03/21/2020 documented as of this encounter (statuses as of 09/02/2023) Resolved Problems Problem Noted Date Diagnosed Date Resolved Date Seronegative polyarthritis 08/09/2020 0 01/28/2023 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 documented in this encounter Plan of Treatment Upcoming Encounters Date Type Department Care Team (Late st Contact Info) Description 09/20/2023 3:00 PM EST Office Visit Rheumatology [address] [place] [phone] Av Austin CRNP [address] [place] [address] 10/18/2023 8:00 AM EST Imaging Radiology [facility] 1st [facility] [address] [place] [address] 11/21/2023 9:40 AM EDT Office Visit Hepatology, [facility] [address] [place] [address] Vikki Louie DO [address] [place] [address] 05/04/2024 1:00 PM EDT Office Visit Gynecology/Obstetrics [facility] [address] [place] [address] Jaleesa Hess PA-C [address] [place] [address] Health Maintenance Due Date Last Done Comments [...] this encounter Medical Devices Implanted Type Area Diathermy Equipment Repairer Device Identifier Shelf Expiration Date Model / Serial / Lot Syr Pf 2ml Embospheres 100-300 - [id number] Implanted:Qty: 1 on 04/18/2023 by Chao King DO at OR [facility] [place] [employer] [facility] [id number] 10/14/2025 [id number] / / [id number] documented as of this encounter Visit Diagnoses Diagnosis No Show for psych appt- Primary documented in this encounter Care Teams Chip Unloader Relationship Specialty Start Date End Date Dayday Wahl MD [address] [facility] [place] [address] PCP - General Family Medicine 03/18/20 documented as of this encounter
[2023-12-05] MEDS: CYANOCOBALAMIN (B-12) 500 MCG TABLET PO SCH (11:37)
--- NOTE | 2023-12-05 15:25 | Oncology Consultation ---
Date of Consultation December 05, 2023 Assessment & Plan (1) Severe thrombocytopenia: We have already seen a response to immunosuppression. Platelet count is improved with glucocorticoids and IVIG. Recommend outpatient follow-up once discharged to see long-term treatment and treatment for ITP. Plan Hematology will continue to follow the patient make appropriate recommendations. Thank you for this interesting urological consult. History of Present Illness Reason for Consultation: ITP Attending Physician: Dhiraj Black MD History of Present Illness Patient is a very pleasant 43-year-old woman who presented to [facility] ER with increased bruising. A CBC was performed which revealed a platelet count of less than 10,000/mcL. She was started on IVIG and Decadron. Subsequently we noticed an improvement in the platelet count to 45,000/mcL. Currently she is doing better. Bruising has improved. Allergies Allergy/AdvReac Type Severity Reaction Status Date / Time No Known Allergies Allergy Unverified 12/04/23 10:48 Home Medications Medication Instructions Recorded Confirmed Type albuterol sulfate 90 mcg/actuation 2 puff inhalation Q4H PRN sob 12/04/23 12/04/23 History aerosol inhaler (ProAir HFA) duloxetine 60 mg capsule,delayed 60 mg PO DAILY 12/04/23 12/04/23 History release lisinopril 30 mg tablet 30 mg PO DAILY 12/04/23 12/04/23 History norethindrone (contraceptive) 0.35 0.35 mg PO DAILY 12/04/23 12/04/23 History mg tablet omeprazole 40 mg capsule,delayed 40 mg PO DAILY 12/04/23 12/04/23 History release prednisone 5 mg tablet 5 mg PO DAILY 12/04/23 12/04/23 History Patient History Medical History Depression PTSD (post-traumatic stress disorder) Rheumatoid arthritis GERD (gastroesophageal reflux disease) Prediabetes HTN (hypertension) Surgical History History of loop electrosurgical excision procedure (LEEP) History of hysteroscopy Family History Other Breast cancer Heart disease Social History Smoking Status: Former smoker Hx Alcohol Use: No Hx Substance Use: No Communication Ability: Effective Air Brake Mechanic Required: No Beliefs That Will Affect Care: None Current Living Situation: Spouse Feels Safe at Home: Yes Assistive Devices: None Review of Systems Review of Systems: All systems reviewed & are unremarkable except as noted in HPI & below Constitutional: as per Subjective / HPI Eyes: as per Subjective / HPI Ear, Nose, Mouth, Throat: as per Subjective / HPI Respiratory: as per Subjective / HPI Cardiovascular: as per Subjective / HPI Gastrointestinal: as per Subjective / HPI Genitourinary: as per Subjective / HPI Musculoskeletal: as per Subjective / HPI Physical Exam Constitutional: WD/WN, vitals as above Eyes: PERRL, conjunctivae normal, anicteric sclerae ENMT: external ear and nose normal, oropharynx normal Neck: trachea midline, no thyromegaly Respiratory: normal respiratory effort, lungs clear to auscultation Cardiovascular: RRR, no murmur, no edema Gastrointestinal (Abdomen): normal bowel sounds, soft, nontender, no hepatosplenomegaly Musculoskeletal: no cyanosis or clubbing, extremities motor strength 5/5 Skin: no rashes, warm and dry Results & Data Vital Signs (Past 12 Hours) Vital Signs Temp Pulse Resp BP Pulse Ox O2 Del Method 12/05/23 14:00 140/81 12/05/23 14:00 86 19 12/05/23 13:00 96 H 22 12/05/23 13:00 147/76 H 12/05/23 12:30 98 H 20 12/05/23 12:24 154/99 H 12/05/23 12:24 98 H 21 12/05/23 12:16 104 H 24 12/05/23 12:03 174/92 H 12/05/23 12:03 103 H 18 12/05/23 12:00 106 H 15 12/05/23 11:46 102 H 23 12/05/23 11:46 193/113 H 12/05/23 11:33 173/92 H 12/05/23 11:33 101 H 16 97 Room Air 12/05/23 11:31 96 H 18 98 12/05/23 11:30 102 H 12/05/23 11:30 36.6 C 12/05/23 11:30 107 H 21 96 12/05/23 11:00 96 H 22 12/05/23 10:30 97 H 19 12/05/23 10:00 104 H 21 12/05/23 09:30 94 H 20 127/81 98 12/05/23 09:08 114 H 22 12/05/23 08:32 102 H 26 H 12/05/23 08:15 103 H 21 98 12/05/23 08:15 142/104 H 12/05/23 08:00 93 H 19 12/05/23 07:32 97 H 12/05/23 07:30 36.9 C 92 H 16 140/104 H 99 Room Air 12/05/23 07:00 94 H 14 12/05/23 06:30 114 H 17 12/05/23 06:00 98 H 16 12/05/23 05:30 93 H 21 12/05/23 05:00 111 H 14 12/05/23 04:30 96 H 15 12/05/23 04:09 136/82 12/05/23 04:09 96 H 19 12/05/23 04:00 104 H 20 136/82 96 Room Air
[2023-12-05] MEDS: LABETALOL HCL IV 5 MG/ML 20ML IV PRN (16:45)
[2023-12-05] MEDS: ACETAMINOPHEN 325 MG TAB PO PRN (16:45)
--- NOTE | 2023-12-05 16:59 | Hospitalist Progress Note ---
Date of Service December 05, 2023 Assessment & Plan (1) Severe thrombocytopenia: Plan: Patient is a 43yo F with a PMH of Rheumatoid arthritis, HTN, depression and other medical problems listed below and was found to have severe thrombocytopenia. Severe thrombocytopenia Likely ITP Outpatient labs today that was significant for Hgb 11.5 (previously 12.5 in Sep 2023), platelets <10 (previously 311 on 09/20/23), absolute retic count elevated at 107, retic % elevated at 2.53 Continue dexamethasone, immunoglobulin Monitor CBC closely Hematology oncology consulted Platelet count slowly improving Hyperglycemia Likely secondary to steroids Check HbA1c Vitamin B12 deficiency Started on vitamin B12 supplements (2) Rheumatoid arthritis: Plan: Follows with [facility], has been on monthlong taper of prednisone down to the last few days at 5mg - hold while receiving IV dexamethasone as above Due to start Rinvoq but has not yet received Needs follow-up with rheumatology as outpatient (3) HTN (hypertension): Plan: Hypertensive urgency Likely situational secondary to steroids Continue lisinopril--increase to 40 mg daily Refused amlodipine given leg edema in the past Added hydralazine IV labetalol as needed Monitor BP (4) Depression: (5) PTSD (post-traumatic stress disorder): Plan: Currently on Duloxetine 60mg with plans to increase to 90mg soon per PCP - defer to PCP follow up upon discharge Obesity BMI 39.7 Lifestyle changes DVT Px: contraindicated due to thrombocytopenia next Code status: FULL CODE Admission and Anticipated Discharge Date Admission Date: December 04, 2023 Subjective Patient is seen and examined at bedside Admits to have some headache Blood pressure elevated today States having menstrual bleed but otherwise no other bleeding issues Denies any chest pain, dyspnea, nausea, vomiting, abdominal pain Review of Systems Review of Systems: All systems reviewed & are unremarkable except as noted in Subjective Physical Exam Physical Exam: Physical Exam: Vitals signs as noted above General Appearance:Obese, no apparent distress Head: normocephalic, Atraumatic Eyes: normal inspection, EOMI Neck: supple, Trachea midline Respiratory/Chest: Normal breath sounds, CTA, No accessory muscle use Cardiovascular: S1, S2, No murmur Abdomen/GI:Soft, Non tender, Bowel sounds present Extremities/Musculoskeletal:normal inspection, no edema Neurologic/Psych:AAOX3, grossly no focal neurological deficits Skin: normal color, warm, scattered ecchymosis Results & Data Results & Data Vital Signs (Past 12 Hours) Vital Signs Temp Pulse Pulse Resp BP BP Pulse Ox 12/05/23 16:45 95 H 185/117 H 12/05/23 16:13 95 H 198/114 H 12/05/23 15:51 36.7 C 93 H 18 177/104 H 100 12/05/23 14:00 140/81 12/05/23 14:00 86 19 12/05/23 13:00 96 H 22 12/05/23 13:00 147/76 H 12/05/23 12:30 98 H 20 12/05/23 12:24 154/99 H 12/05/23 12:24 98 H 21 12/05/23 12:16 104 H 24 12/05/23 12:03 174/92 H 12/05/23 12:03 103 H 18 12/05/23 12:00 106 H 15 12/05/23 11:46 102 H 23 12/05/23 11:46 193/113 H 12/05/23 11:33 173/92 H 12/05/23 11:33 101 H 16 97 12/05/23 11:31 96 H 18 98 12/05/23 11:30 102 H 12/05/23 11:30 36.6 C 12/05/23 11:30 107 H 21 96 12/05/23 11:00 96 H 22 12/05/23 10:30 97 H 19 12/05/23 10:00 104 H 21 12/05/23 09:30 94 H 20 127/81 98 12/05/23 09:08 114 H 22 12/05/23 08:32 102 H 26 H 12/05/23 08:15 103 H 21 98 12/05/23 08:15 142/104 H 12/05/23 08:00 93 H 19 12/05/23 07:32 97 H 12/05/23 07:30 36.9 C 92 H 16 140/104 H 99 12/05/23 07:00 94 H 14 12/05/23 06:30 114 H 17 12/05/23 06:00 98 H 16 12/05/23 05:30 93 H 21 12/05/23 05:00 111 H 14 O2 Del Method 12/05/23 16:45 12/05/23 16:13 12/05/23 15:51 Room Air 04/18/24 14:00 12/05/23 14:00 12/05/23 13:00 12/05/23 13:00 12/05/23 12:30 12/05/23 12:24 12/05/23 12:24 12/05/23 12:16 12/05/23 12:03 12/05/23 12:03 12/05/23 12:00 12/05/23 11:46 12/05/23 11:46 12/05/23 11:33 12/05/23 11:33 Room Air 12/05/23 11:31 12/05/23 11:30 12/05/23 11:30 12/05/23 11:30 12/05/23 11:00 12/05/23 10:30 12/05/23 10:00 12/05/23 09:30 12/05/23 09:08 12/05/23 08:32 12/05/23 08:15 12/05/23 08:15 12/05/23 08:00 12/05/23 07:32 12/05/23 07:30 Room Air 12/05/23 07:00 12/05/23 06:30 12/05/23 06:00 12/05/23 05:30 12/05/23 05:00 Laboratory Results Short CBC 12/05/23 Range/Units 04:04 WBC 10.16 (4.8-10.8) K/ul Hgb 10.3 L (12.0-16.0) g/dl Hct 32.0 L (37.0-47.0) % Plt Count 45 L D (130-400) K/uL BMP 12/05/23 04:04 Sodium 134 L Potassium 3.8 Chloride 104 Carbon Dioxide 22 BUN 12 Creatinine 0.79 Glucose 264 H Calcium 8.8 Liver Function 12/05/23 Range/Units 04:04 Total Bilirubin 0.3 (0.2-1.0) mg/dl AST 15 (13-39) U/L ALT 20 (7-52) U/L Alkaline Phosphatase 85 (34-104) U/L Albumin 3.5 (3.4-5.0) gm/dl
[2023-12-05] MEDS: amLODIPine BESYLATE 5 MG TAB PO ONE (17:00)
[2023-12-05] MEDS: hydrALAZINE 10 MG TAB PO SCH (17:24)
[2023-12-06 05:16] LABS: Basophils # (auto) 0.01 K/uL (0.00-0.20); Basophils % (auto) 0.1 %; Eosinophils # (auto) 0.01 K/uL (0.00-0.50); Eosinophils % (auto) 0.1 %; Hematocrit (blood only) 30.5 % (37.0-47.0); Immature Granulocytes # (auto) 0.18 K/uL (0.01-0.20); Immature Granulocytes % (auto) 1.4 %; Lymphocytes # (auto) 1.03 K/uL (1.20-3.40); Lymphocytes % (auto) 7.9 %; Mean Corpuscular Hemoglobin 27.6 pg (25.0-34.0); Mean Corpuscular Hgb Conc 32.8 g/dL (32.0-36.0); Mean Corpuscular Volume 84.3 fL (80.0-100.0); Mean Platelet Volume 10.4 fL (9.4-12.4); Monocytes # (auto) 0.85 K/uL (0.11-0.59); Monocytes % (auto) 6.5 %; Neutrophils # (auto) 10.97 K/uL (1.40-6.50); Platelet Count 184 K/uL (130-400); RDW Coefficient of Variation 14.4 % (11.5-14.5); Red Blood Count 3.62 M/uL (4.20-5.40); White Blood Count 13.05 K/ul (4.8-10.8)
[2023-12-06 07:24] LABS: Estimated Average Glucose 137 mg/dl; Hemoglobin A1C 6.4 % (4.5-5.6)
[2023-12-06] MEDS: lisinopril 40 MG TAB PO SCH (07:58)
[2023-12-06] MEDS ORDERED: amLODIPine BESYLATE 5 MG TAB PO SCH (09:00)
--- NOTE | 2023-12-06 15:11 | Hospitalist Progress Note ---
Date of Service December 06, 2023 Assessment & Plan (1) Severe thrombocytopenia: Plan: Patient is a 43yo F with a PMH of Rheumatoid arthritis, HTN, depression and other medical problems listed below and was found to have severe thrombocytopenia. Severe thrombocytopenia Likely ITP Outpatient labs today that was significant for Hgb 11.5 (previously 12.5 in Sep 2023), platelets <10 (previously 311 on 09/20/23), absolute retic count elevated at 107, retic % elevated at 2.53 Received dexamethasone, immunoglobulin for 3 days Monitor CBC closely Appreciate Hematology oncology Input Platelet count improved to 184k Discussed with Dr. Mcintosh on 12/06/2023: Recommends to follow-up hematology on discharge Plan to discharge home today Prediabetes Likely steroids contributing to hyperglycemia as well HbA1c 6.4 Counseled lifestyle changes Vitamin B12 deficiency Started on vitamin B12 supplements (2) Rheumatoid arthritis: Plan: Follows with [facility], has been on monthlong taper of prednisone down to the last few days at 5mg - hold while receiving IV dexamethasone as above Due to start Rinvoq but has not yet received Needs follow-up with rheumatology as outpatient (3) HTN (hypertension): Plan: Hypertensive urgency Likely situational secondary to steroids Continue lisinopril--increase to 40 mg daily Refused amlodipine given leg edema in the past Added hydralazine IV labetalol as needed Monitor BP Advised to follow-up with PCP for further management of blood pressure medications on discharge (4) Depression: (5) PTSD (post-traumatic stress disorder): Plan: Currently on Duloxetine 60mg with plans to increase to 90mg soon per PCP - defer to PCP follow up upon discharge Obesity BMI 39.7 Lifestyle changes DVT Px: SCDs Code status: FULL CODE Disposition Home Admission and Anticipated Discharge Date Admission Date: December 04, 2023 Subjective Patient is seen and examined at bedside States feeling well today Headache resolved Blood pressure much controlled Discussed with hematology/oncology today Denies any chest pain, dyspnea, nausea, vomiting, abdominal pain Platelet count much improved Plan to be discharged home today Review of Systems Review of Systems: All systems reviewed & are unremarkable except as noted in Subjective Physical Exam Physical Exam: Physical Exam: Vitals signs as noted above General Appearance:Obese, no apparent distress Head: normocephalic, Atraumatic Eyes: normal inspection, EOMI Neck: supple, Trachea midline Respiratory/Chest: Normal breath sounds, CTA, No accessory muscle use Cardiovascular: S1, S2, No murmur Abdomen/GI:Soft, Non tender, Bowel sounds present Extremities/Musculoskeletal:normal inspection, no edema Neurologic/Psych:AAOX3, grossly no focal neurological deficits Skin: normal color, warm, scattered ecchymosis Results & Data Results & Data Vital Signs (Past 12 Hours) Vital Signs Pulse Resp 12/06/23 05:00 77 15 12/06/23 04:30 76 17 12/06/23 04:00 77 18 12/06/23 03:30 75 20 Laboratory Results Short CBC 12/06/23 Range/Units 04:16 WBC 13.05 H (4.8-10.8) K/ul Hgb 10.0 L (12.0-16.0) g/dl Hct 30.5 L (37.0-47.0) % Plt Count 184 D (130-400) K/uL
--- NOTE | 2023-12-06 15:28 | Discharge Summary ---
Date of Service December 06, 2023 Admission HPI Per Admitting Provider This is a 43yo F with a PMH of HTN, RA, depression, PTSD, prediabetes, adenoma of liver and other medical problems listed below who was directed to ED by outpatient provider after significant lab abnormalities found this morning. Saw PCP today due to spontaneous bruising x 1 week without trauma. Notes that things that would have previously caused a red ana rosa for a few minutes only are causing a bruise over this past week. Feels very tired. Also notes that her last period was very heavy with her needing to change a maxi pad every 2 hours. Was having gum bleeding this morning when brushed her teeth. Underwent labwork today that was significant for Hgb 11.5 (previously 12.5 in Sep 2023), platelets <10 (previously 311 on 09/20/23), absolute retic count elevated at 107, retic % elevated at 2.53. Denies any history of bleeding or clotting issues personally but grandmother has history of blood clots, is on a blood thinner. No recent illness. No F/C, lightheadedness, CP, SOB, N/V, abd pain, dysuria, diarrhea or constipation. Admission Exam Per Admitting Provider GENERAL APPEARANCE: AxOx4, generally well-appearing female, no acute distress. HEENT: NC, AT. MMM. EOMI, clear conjunctiva, oropharynx clear. NECK: Supple without lymphadenopathy. No stiffness or restricted ROM. HEART: Normal rate and regular rhythm, normal S1/S1, no m/r/g LUNGS: CTAB, moving air well. No crackles or wheezes are heard. ABDOMEN: Soft, nontender, nondistended with good bowel sounds heard.. EXTREMITIES: Without cyanosis, clubbing or edema. NEUROLOGICAL: Grossly nonfocal. Alert and oriented, moving all 4 extremities. CN not formally tested but appear grossly intact. Observed to ambulate with normal gait. Skin: Warm and dry without any rash. ecchymosis on right eye, scatter bruising of abdomen and lower extremities. Principal Diagnosis Severe thrombocytopenia Likely ITP Prediabetes Vitamin B12 deficiency Hypertension Discharge Data Allergies Allergy/AdvReac Type Severity Reaction Status Date / Time No Known Allergies Allergy Unverified 12/04/23 10:48 Consultations 12/04/23 12:47 Consult Hematology Routine 12/04/23 13:36 ED Decision to Admit Stat Procedures Performed Laboratory Results WBC 13.05 K/ul (4.8-10.8) H 12/06/23 04:16 RBC 3.62 M/uL (4.20-5.40) L 12/06/23 04:16 Hgb 10.0 g/dl (12.0-16.0) L 12/06/23 04:16 Hct 30.5 % (37.0-47.0) L 12/06/23 04:16 MCV 84.3 fL (80.0-100.0) 12/06/23 04:16 MCH 27.6 pg (25.0-34.0) 12/06/23 04:16 MCHC 32.8 g/dL (32.0-36.0) 12/06/23 04:16 RDW Std Deviation 44.0 fL (36.4-46.3) 12/06/23 04:16 RDW Coeff of Arnold 14.4 % (11.5-14.5) 12/06/23 04:16 Plt Count 184 K/uL (130-400) D 12/06/23 04:16 MPV 10.4 fL (9.4-12.4) 12/06/23 04:16 Immature Gran % (Auto) 1.4 % 12/06/23 04:16 Neut % (Auto) 84.0 % 12/06/23 04:16 Lymph % (Auto) 7.9 % 12/06/23 04:16 [place] % (Auto) 6.5 % 12/06/23 04:16 Eos % (Auto) 0.1 % 12/06/23 04:16 Baso % (Auto) 0.1 % 12/06/23 04:16 Neut # (Auto) 10.97 K/uL (1.40-6.50) H 12/06/23 04:16 Lymph # (Auto) 1.03 K/uL (1.20-3.40) L 12/06/23 04:16 [place] # (Auto) 0.85 K/uL (0.11-0.59) H 12/06/23 04:16 Eos # (Auto) 0.01 K/uL (0.00-0.50) 12/06/23 04:16 Baso # (Auto) 0.01 K/uL (0.00-0.20) 12/06/23 04:16 Immature Gran # (Auto) 0.18 K/uL (0.01-0.20) 12/06/23 04:16 Platelet Estimate Signific. Decreased (Normal) L 12/04/23 11:00 PT 10.5 Seconds (9.0-12.0) 12/04/23 11:00 INR 1.0 (0.9-1.1) 12/04/23 11:00 Sodium 134 mmol/L (136-145) L 12/05/23 04:04 Potassium 3.8 mmol/L (3.5-5.1) 12/05/23 04:04 Chloride 104 mmol/L (98-107) 12/05/23 04:04 Carbon Dioxide 22 mmol/L (21-32) 12/05/23 04:04 Anion Gap 8 (3-11) 12/05/23 04:04 BUN 12 mg/dl (6-23) 12/05/23 04:04 Creatinine 0.79 mg/dl (0.6-1.2) 12/05/23 04:04 Est Cr Clr Drug Dosing 108.5 ml/min 12/05/23 04:04 Est GFR ( Amer) 107.0 ml/min 12/05/23 04:04 Est GFR (Non-Af Amer) 92.3 ml/min 12/05/23 04:04 BUN/Creatinine Ratio 15.2 (10-20) 12/05/23 04:04 Glucose 264 mg/dl (70-99(Fasting)) H 12/05/23 04:04 Estimat Average Glucose 137 mg/dl 12/06/23 04:16 Hemoglobin A1c 6.4 % (4.5-5.6) H 12/06/23 04:16 Calcium 8.8 mg/dl (8.6-10.3) 12/05/23 04:04 Iron 36 mcg/dl (35-150) 12/05/23 04:04 TIBC 328 mcg/dl (250-450) 12/05/23 04:04 Unsaturated IBC 292 mcg/dl (155-355) 12/05/23 04:04 Transferrin % Sat 11 % (15-50) L 12/05/23 04:04 Ferritin 63.9 ng/ml (8-388) 12/05/23 04:04 Total Bilirubin 0.3 mg/dl (0.2-1.0) 12/05/23 04:04 AST 15 U/L (13-39) 12/05/23 04:04 ALT 20 U/L (7-52) 12/05/23 04:04 Alkaline Phosphatase 85 U/L (34-104) 12/05/23 04:04 Total Protein 8.2 gm/dl (6.0-8.3) 12/05/23 04:04 Albumin 3.5 gm/dl (3.4-5.0) 12/05/23 04:04 Globulin 4.7 gm/dl (2.5-4.0) H 12/05/23 04:04 Albumin/Globulin Ratio 0.7 (0.9-2) L 12/05/23 04:04 Lipase 69 U/L (11-82) 12/04/23 11:00 Vitamin B12 127 pg/ml (180-914) L 12/05/23 04:04 Folate 14.38 ng/ml (>5.38) 12/05/23 04:04 HCG, Qual Negative (Negative) 12/04/23 11:00 Urine Color Yellow 12/04/23 12:00 Urine Appearance Clear (Clear) 12/04/23 12:00 Urine pH 7.0 (4.5-7.5) 12/04/23 12:00 Ur Specific [place] 1.007 (1.000-1.030) 12/04/23 12:00 Urine Protein Negative (Negative) 12/04/23 12:00 Urine Glucose (UA) Negative (Negative) 12/04/23 12:00 Urine Ketones Negative (Negative) 12/04/23 12:00 Urine Blood 2+ (Negative) H 12/04/23 12:00 Urine Nitrite Negative (Negative) 12/04/23 12:00 Urine Bilirubin Negative (Negative) 12/04/23 12:00 Urine Urobilinogen Negative (Negative) 12/04/23 12:00 Ur Leukocyte Esterase Negative (Negative) 12/04/23 12:00 Urine WBC (Auto) 0-5 /hpf (0-5) 12/04/23 12:00 Urine RBC (Auto) 6-10 /hpf (0-2) H 12/04/23 12:00 U Hyaline Cast (Auto) 0-2 /lpf (0-2) 12/04/23 12:00 U Epithel Cells (Auto) 0-2 /hpf (0-2) 12/04/23 12:00 Urine Bacteria (Auto) None Seen (None Seen) 12/04/23 12:00 Nasal Screen MRSA (PCR) Negative (Negative) 12/05/23 12:[address] 12/04/23 12:[address] DOSE: 547.75 mGy.cm HISTORY: Headache, severe thrombocytopenia TECHNIQUE: Multiaxial CT images of the head were performed without the use of intravenous contrast. Automated exposure control was utilized for this study. A dose lowering technique was utilized adhering to the principles of ALARA. Comparison: None. Findings: The paranasal sinuses and mastoid air cells are clear. The calvarium and skull base are intact. The ventricles and sulci are within normal limits. There is no mass, hematoma, midline shift, or acute infarct. Impression: No acute intracranial abnormality. ACT 112: Negative or not required by law. Electronically signed by: Sherif Ge M.D. 12/04/2023 1:52 PM Ordered Studies 12/04/23 12:57 CT head/brain wo con Stat Hospital Course (1) Severe thrombocytopenia: Patient is a 43yo F with a PMH of Rheumatoid arthritis, HTN, depression and other medical problems listed below and was found to have severe thrombocytopenia. Severe thrombocytopenia Likely ITP Outpatient labs today that was significant for Hgb 11.5 (previously 12.5 in Sep 2023), platelets <10 (previously 311 on 09/20/23), absolute retic count elevated at 107, retic % elevated at 2.53 Received dexamethasone, immunoglobulin for 3 days Monitor CBC closely Appreciate Hematology oncology Input Platelet count improved to 184k Discussed with Dr. Mcintosh on 12/06/2023: Recommends to follow-up hematology on discharge Plan to discharge home today Prediabetes Likely steroids contributing to hyperglycemia as well HbA1c 6.4 Counseled lifestyle changes Vitamin B12 deficiency Started on vitamin B12 supplements (2) Rheumatoid arthritis: Follows with [facility], has been on monthlong taper of prednisone down to the last few days at 5mg - hold while receiving IV dexamethasone as above Due to start Rinvoq but has not yet received Needs follow-up with rheumatology as outpatient (3) HTN (hypertension): Hypertensive urgency Likely situational secondary to steroids Continue lisinopril--increase to 40 mg daily Refused amlodipine given leg edema in the past Added hydralazine IV labetalol as needed Monitor BP Advised to follow-up with PCP for further management of blood pressure medications on discharge (4) Depression: (5) PTSD (post-traumatic stress disorder): Currently on Duloxetine 60mg with plans to increase to 90mg soon per PCP - defer to PCP follow up upon discharge Obesity BMI 39.7 Lifestyle changes DVT Px: SCDs Code status: FULL CODE Disposition Home Total Time Total Time Spent Total Time Spent (In Minutes): 56 minutes Discharge Plan Discharge Items Patient Disposition: Home - Self-Care Reason For Visit: SEVERE THROMBOCYTOPENIA Discharge Diagnosis: Severe thrombocytopenia Likely ITP Prediabetes Vitamin B12 deficiency Hypertension Activity: Per Instructions section Exercise/Sports: Wait until after follow-up appointment Non-emergency contact: Primary Care Provider and Oncologist Call non-emergency contact if: you have any medication questions, your pain is concerning for you and you have a fever Follow-up/Referrals: Jamie Mcintosh MD [Physician] - ([facility] will contact you for a follow up appointment.) Dayday Wahl MD [Primary Care Provider] - (Date & Time 12/11/2023 11:00 AM Provider Dayday Wahl MD Department Family Practice [facility] ) Diet: Heart Healthy Diet Texture: Easy to Chew Addtl Attending Provider Instructions: Follow-up with your primary care physician Dr. Wahl on 12/11/2023 11:00 AM Follow-up with your rattan worker Dr. Mcintosh in 1 week. -- Get blood test (CBC) in 1 week and follow-up with your physician with results. --Monitor your blood pressure regularly as advised. Discuss with your physician for further adjustment of medications as needed. Seek immediate medical attention if your symptoms reoccur or worsen Please take all medications as instructed on discharge list below. Please call if you have any questions or problems. You can reach a [facility] hospitalist on duty at [facility] 24 hours a day by calling [phone] Pending Studies at Discharge: No Stand-Alone Forms: My [facility] [employer], Smoking Cessation Medications and DC Order Prescriptions: New lisinopril [Zestril] 40 mg Tablet 40 mg PO DAILY Qty: 30 0RF cyanocobalamin (vitamin B-12) 1,000 mcg capsule 1,000 mcg PO QAM Qty: 30 0RF hydralazine 10 mg tablet 10 mg PO BID Qty: 60 0RF Continued prednisone 5 mg Tablet 5 mg PO DAILY Rx Instructions: end of taper, 1 wk of 5 mg omeprazole 40 mg Capsule,Delayed Release(Dr/Ec) 40 mg PO DAILY albuterol sulfate [ProAir HFA] 90 mcg/actuation Hfa Aerosol Inhaler 2 puff INHALATION Q4H PRN (Reason: sob) norethindrone (contraceptive) [Ortho Micronor] 0.35 mg Tablet 0.35 mg PO DAILY duloxetine 60 mg Capsule,Delayed Release(Dr/Ec) 60 mg PO DAILY Discontinued lisinopril 30 mg Tablet 30 mg PO DAILY Discharge Orders: Discharge Order (Routine); Ordered 12/06/23 Ordered By: Dhiraj Sinclair/Other Patient Handouts: Prediabetes, 5 Steps for Eating Healthier Admission Data Admit Date/Time: 12/04/23 13:58 Attending Provider: Dhiraj Black Admit Provider: Merary Franklin Primary Care Provider: Dayday Wahl Other Providers: Jamie Mcintosh; Merary Franklin
== END 2023-12-06 19:16 | disposition home or self-care (01) | DRG 813 ==
LOC: ED 10:24 → SUATTDRO 13:58 → EDINP 13:58 → 1E 12-05 12:08